=== PATIENT | male | born 1960 | race Caucasian/White ===

== ENCOUNTER 2019-05-17 07:08 | Outpatient (CLI) | payer OTHER, SELFPAY ==
[2019-05-17 07:53] LABS: Blood Urea Nitrogen 9 mg/dL (9-20); Calcium 9.4 mg/dL (8.4-10.2); Carbon Dioxide 27 mmol/L (22-30); Chloride 101 mmol/L (98-107); Estimated Glomerular Filt Rate > 60; Glucose 102 mg/dL (75-110); Potassium 4.1 mmol/L (3.4-5.0); Sodium 139 mmol/L (137-145)
== END 2019-05-17 07:09 | disposition home or self-care (01) ==
PROVIDERS: PCP Family Medicine; Visit Provider Physician Assistant
DX: I10 Essential (primary) hypertension (principal); R31.9 Hematuria, unspecified
CPT/HCPCS: 36415; 80048; 87077; 87086; 87088

== ENCOUNTER 2019-06-13 09:53 | Emergency (ER) | payer OTHER, SELFPAY ==
[2019-06-13 10:01] VITALS: BP 182/84; PULSE 79; RESP 20; TEMP 37.4; O2SAT 99
--- NOTE | 2019-06-13 10:18 | ED.SKABFB ---
HPI - Skin/Abscess/Foreign Bdy General Chief complaint: Skin/Abscess/Foreign Body Stated complaint: rash Time Seen by Provider: 06/13/19 10:00 Source: patient and RN notes reviewed History of Present Illness HPI narrative: Patient is a 59-year-old male that presents the urgent care with complaints of a rash to the right forehead and upper cheek. Patient states it started approximately 1 week ago and he has had impetigo in the past and treated it with [id number] cream as directed from prior instance. Patient denies any fever, nausea, vomiting. Denies any pain to the rash. Denies any spreading of the rash. 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 No other acute complaints. No acute distress noted. Patient read the plan of care. Related Data Home Medications Medication Instructions Recorded Confirmed citalopram 20 mg tablet 20 mg PO DAILY 04/22/19 06/13/19 doxazosin 2 mg tablet 2 mg PO DAILY 04/22/19 06/13/19 losartan 100 mg tablet 100 mg PO DAILY 04/22/19 06/13/19 metoprolol succinate 100 mg 100 mg PO DAILY 04/22/19 06/13/19 tablet,extended release 24 hr tadalafil 10 mg tablet 10 mg PO DAILY 04/22/19 06/13/19 trazodone 50 mg tablet 50 mg PO DAILY tablet 04/22/19 06/13/19 Allergies Allergy/AdvReac Type Severity Reaction Status Date / Time No Known Allergies Allergy Unverified 05/22/18 15:05 Review of Systems Review of Systems: Narrative: CONSTITUTIONAL: Denies fever, chills, or sweats. EYES: Denies visual changes, redness, or discharge. ENT: Denies rhinorrhea, congestion, sore throat, or otalgia. CARDIOVASCULAR: Denies chest pain, palpitations, or edema. RESPIRATORY: Denies cough or dyspnea. GASTROINTESTINAL: Denies abdominal pain, nausea, vomiting, or diarrhea. GENITOURINARY: Denies dysuria or hematuria. SKIN: Reports of a rash to the right forehead and upper cheek MUSCULOSKELETAL: Denies back pain, joint pain, or myalgia. NEUROLOGIC: Denies headache, numbness, or weakness. All other systems reviewed are negative, except as documented in HPI. PMFSH Family History Family History (Updated 01/16/19 @ 07:34 by DOCTOR UNKNOWN) Father Malignant neoplasm of prostate Other Family history of malignant neoplasm Social History Social History Smoking status: Former smoker Alcohol intake: current Comments At the time of my signature, I reviewed and agree with the nursing past medical, surgical, social, and family history. There is no relevant family history pertinent to the patient complaint. Exam Narrative: Exam Narrative: GENERAL: This is a well-nourished, well-developed patient, in no apparent distress. HEAD: normocephalic, atraumatic. EYES: PERRL. Sclera clear/white. Vision is grossly intact. EARS: External ears normal, auditory canals clear and without drainage, TMs normal without perforation. Hearing grossly intact. NOSE: External nose normal with no obvious nasal discharge, nares without redness, no rhinorrhea. THROAT: Mucous membranes moist, posterior pharynx clear. NECK: Neck supple, non-tender without lymphadenopathy, masses or thyromegaly. CARDIOVASCULAR: Regular rate and rhythm without murmurs, gallops, or rubs. RESPIRATORY: Clear to auscultation. Breath sounds equal bilaterally. No wheezes, rales, or rhonchi. SKIN: Healing dry patchy areas of resolved impetigo noted to the right side of the forehead and right upper cheek. Warm, intact with no suspicious lesions or rash, good texture and turgor. NEURO: awake, alert, and oriented to person, place and time. There were no obvious focal neurologic abnormalities. EXTREMITIES: No clubbing, cyanosis, or edema. Course Vital Signs Vital signs: Vital Signs Temperature 99.4 F 06/13/19 10:01 Pulse Rate 79 06/13/19 10:01 Respiratory Rate 20 06/13/19 10:01 Blood Pressure 182/84 H 06/13/19 10:01 Pulse Oximetry 99 06/12
== END 2019-06-13 10:26 | disposition home or self-care (01) ==
PROVIDERS: Emergency Provider Nurse Practitioner Family; PCP Family Medicine
DX: L01.00 Impetigo, unspecified (principal); I10 Essential (primary) hypertension; Z87.891 Personal history of nicotine dependence; F41.9 Anxiety disorder, unspecified; Z85.46 Personal history of malignant neoplasm of prostate
CPT/HCPCS: 99213; G0463

== ENCOUNTER 2019-09-02 08:14 | Emergency (ER) | payer OTHER, SELFPAY ==
[2019-09-02] VITALS (19 sets, daily range): BP systolic 127–197; BP diastolic 89–116; PULSE 103–111; RESP 10–27; TEMP 36.8; O2SAT 96–99
--- NOTE | ~2019-09-02 | XR_ITS ---
EXAMINATION: XR ankle LT min 3V DATE: 09/02/2019 09:12 INDICATION: Left ankle swelling. TECHNIQUE: 4 views of left ankle were obtained. COMPARISON: Left ankle radiographs 05/16/2018 FINDINGS: Bone alignment is normal. No acute fracture. There is chronic ossification distal to medial and lateral malleoli from old injuries. Joint spaces are normal. There are enthesophytes at the post erior and plantar aspects of calcaneal tuberosity. Ankle soft tissue swelling is noted. IMPRESSION: 1. No acute fracture. Reviewed, dictated and finalized at location A. IMPRESSION: 1. No acute fracture.
--- NOTE | ~2019-09-02 | XR_ITS ---
EXAMINATION: XR foot RT min 3V DATE: 09/02/2019 09:13 INDICATION: Right foot injury involving the first digit. TECHNIQUE: 4 views of right foot were obtained. COMPARISON: None. FINDINGS: Bone alignment is normal. There is an old healed fracture of fifth proximal phalanx. There is an impacted fracture of neck of fourth proximal phalanx. There is an old healed fracture of neck o f third proximal phalanx. There is mild osteoarthritis of talonavicular joint. There are enthesophyte s at the posterior and plantar aspects of calcaneal tuberosity. IMPRESSION: 1. Fracture deformity of neck of fourth proximal phalanx, which may be chronic. Reviewed, dictated and finalized at location A.
--- NOTE | ~2019-09-02 | CT_ITS ---
EXAMINATION: CT brain wo con DATE: 09/02/2019 08:59 INDICATION: Syncopal episode last night. Patient fell and struck head. TECHNIQUE: Computed tomography (CT) of the head was performed without intravenous contrast. The mA wa s adjusted according to patient size. Iterative reconstruction technique was employed. Exam dose: 75 6.67 mGy-cm total exam DLP. COMPARISON: 07/22/2018 CT brain FINDINGS: Frontal cephalohematoma is noted. No skull fracture is evident. There is a subtle linear hyperdensity in the expected area of a contrecoup injury in the posterior le ft parietal area (series 2 images 52-57. This might be a vessel, but a small subdural hematoma is not excluded. Continued observation and short-term follow up CT head imaging is recommended. No cerebral hematoma is noted. No midline shift or mass effect. There is central and cortical cerebral and cerebellar atrophy. No intracranial mass lesion is detecte d. IMPRESSION: Frontal cephalohematoma; no skull fracture detected Short-term follow-up CT imaging within 24 hours is recommended to exclude any subtle contrecoup subdu ral hematoma Reviewed, dictated and finalized at Location A. Reviewed, dictated and finalized at location A. IMPRESSION: Frontal cephalohematoma; no skull fracture detected Short-term follow-up CT imaging within 24 hours is recommended to exclude any s ubtle contrecoup subdural hematoma
--- NOTE | 2019-09-02 08:32 | ECG_ITS ---
Measurements Intervals [place] Rate: 109 P: -3 AK: 170 QRS: 6 QRSD: 100 T: 30 QT: 339 QTc: 458 Interpretive Statements SINUS TACHYCARDIA INCOMPLETE RIGHT BUNDLE BRANCH BLOCK BASELINE WANDER- I, II ABNORMAL ECG Electronically Signed On 09-02-2019 8:57:50 CDT by Kevon Carlisle D.O.
--- NOTE | 2019-09-02 09:04 | ED.GENADULT ---
HPI - General Adult General Chief complaint: Syncope Stated complaint: SYNCOPE Time Seen by Provider: 09/02/19 08:28 History of Present Illness HPI narrative: Patient is a 59-year-old male who presents the ER after a fall resulting in head trauma and pain to the toes. Patient reports over the last year he has had intermittent episodes where he will become profoundly weak and dropped to the ground. He does not lose consciousness but cannot control his movements. He is keenly aware that he is falling and hitting the ground. 1 year ago he suffered multiple injuries and was transferred to [facility] where he was worked up for this without finding a known cause. Patient reports he has had a couple episodes over the last 2 weeks. 1 week ago he injured his left ankle which is swollen but he is able to bear weight and is without any numbness or tingling. Today when he fell he injured the toes of his right foot which are now bruised but nontender to touch. He also struck his head where he has a bruise to the left forehead with overlying abrasion and also has a superficial laceration over the occiput. Denies any change in vision or hearing or confusion at this time. He does not take a blood thinner. Related Data Home Medications Medication Instructions Recorded Confirmed citalopram 20 mg tablet 20 mg PO DAILY 04/22/19 06/13/19 doxazosin 2 mg tablet 2 mg PO DAILY 04/22/19 06/13/19 losartan 100 mg tablet 100 mg PO DAILY 04/22/19 06/13/19 metoprolol succinate 100 mg 100 mg PO DAILY 04/22/19 06/13/19 tablet,extended release 24 hr tadalafil 10 mg tablet 10 mg PO DAILY 04/22/19 06/13/19 trazodone 50 mg tablet 50 mg PO DAILY tablet 04/22/19 06/13/19 Allergies Allergy/AdvReac Type Severity Reaction Status Date / Time No Known Allergies Allergy Verified 09/02/19 08:23 Review of Systems Review of Systems: All systems reviewed & are unremarkable except as noted in HPI and below Constitutional: Constitutional: Denies chills, Denies fatigue, Denies fever(s) and Reports weakness ENT: Denies nasal congestion and Denies sore throat Cardiovascular: Cardiovascular: Denies chest pain and Denies rapid heart rate Respiratory: Respiratory: Denies cough and Denies dyspnea Gastrointestinal: Gastrointestinal: Denies abdominal pain, Denies nausea and Denies vomiting Integumentary/Breasts: Comments: Toe contusion right side and laceration to scalp. Neurologic: Denies confusion, Denies syncope, Denies numbness and Reports weakness PMFSH Family History Family History (Updated 01/16/19 @ 07:34 by DOCTOR UNKNOWN) Father Malignant neoplasm of prostate Other Family history of malignant neoplasm Social History Social History Smoking status: Former smoker Alcohol intake: current Gender identity (if verbalized by the patient): Male Exam Narrative: Exam Narrative: GENERAL: Well-appearing, well-nourished, and in no acute distress. HEAD: Normocephalic, Frontal bruising of forehead, flap laceration over occiput. EYES: PERRL and EOMI. ENT: Mucous membranes moist. CHEST: Clear to auscultation. No respiratory distress. HEART: Tachycardic and regular. Normal peripheral pulses. ABDOMEN: Soft, nontender, nondistended. EXTREMITIES: Normal range of motion. No edema. Contusions to the toes on the right side with tenderness at toe #4. SKIN: Warm, dry, no rash. NEURO: Alert and oriented x3. PSYCH: Normal mood and affect. Course Course Emergency Course: Dr. Ovalles at [facility] recommends transfer to the ER at [facility]. Dr. Ferrell in the ER has accepted transfer. Pt placed in a c-collar. Post-op shoe for the right 4th toe fx. Vital Signs Vital signs: Vital Signs Pulse Rate 110 H 09/02/19 08:18 Respiratory Rate 18 09/02/19 08:18 Blood Pressure 185/96 H 09/02/19 08:18 Pulse Oximetry 97 09/02/19 08:18 Temperature 98.3 F 09/02/19 08:24 Pulse Rate 111 H 09/02/19 10:00 Respiratory Rate 27 H 09/02/19 10:00 Blood Press
[2019-09-02 09:06] LABS: Basophils Percent Auto 0.4 % (0.2-1.2); Eosinophils Absolute Auto 0.1 K/mm3 (0-0.3); Hematocrit 38.5 % (42.0-52.0); Hemoglobin 13.3 g/dL (14.0-18.0); Immature Granulocyte Absolute 0.02 K/mm3 (0.00-0.031); Immature Granulocyte Percent A 0.3 % (0-0.5); Lymphocytes Absolute Auto 0.51 K/mm3 (0.9-3.2); Lymphocytes Percent Auto 7.6 % (18.3-44.2); Mean Corpuscular HGB Conc 34.5 g/dl (32-36); Mean Corpuscular Hemoglobin 33.9 pg (26-34); Mean Corpuscular Volume 98.2 fl (80-100); Mean Platelet Volume 9.3 fl (7.4-10.4); Monocytes Absolute Auto 0.6 K/mm3 (0.1-0.6); Monocytes Percent Auto 9.1 % (2.6-8.5); Neutrophils Absolute Auto 5.5 K/mm3 (1.3-6.7); Neutrophils Percent Auto 81.6 % (45.5-73.1); Platelet Count Result 129 k/mm3 (150-375); Red Blood Count 3.92 M/mm3 (4.6-6.20); Red Cell Distribution Width 11.8 % (11.5-14.5); White Blood Count 6.7 K/mm3 (4.5-10.0)
[2019-09-02 09:22] LABS: Blood Urea Nitrogen 6 mg/dL (9-20); Calcium 9.4 mg/dL (8.4-10.2); Carbon Dioxide 23 mmol/L (22-30); Chloride 100 mmol/L (98-107); Estimated CRCL calculation 90 ml/min; Estimated Glomerular Filt Rate > 60; Glucose 103 mg/dL (75-110); Potassium 3.9 mmol/L (3.4-5.0); Sodium 135 mmol/L (137-145)
[2019-09-02] MEDS: ONDANSETRON INJ 4 MG/2 ML VIAL IV PUSH (10:30)
--- NOTE | 2019-09-02 10:45 | PC.NURSE ---
[facility] declined transfer to [facility] accepted transfer to [facility] 11:30 Trip # [id number]
== END 2019-09-02 11:39 | disposition short-term general hospital (02) ==
PROVIDERS: Emergency Provider Emergency Medicine; PCP Family Medicine
DX: S06.5X0A Traumatic subdural hemorrhage without loss of consciousness, initial encounter (principal); S01.01XA Laceration without foreign body of scalp, initial encounter; S92.511A Displaced fracture of proximal phalanx of right lesser toe(s), initial encounter for closed fracture; Z87.891 Personal history of nicotine dependence; R00.0 Tachycardia, unspecified; I45.10 Unspecified right bundle-branch block; W18.39XA Other fall on same level, initial encounter
CPT/HCPCS: 12002; 36415; 70450; 73610; 73630; 80048; 85025; 93005; 96374; 99285; J2405; L0140

== ENCOUNTER 2019-09-09 12:22 | Outpatient (CLI) | payer OTHER, SELFPAY ==
--- NOTE | ~2019-09-09 | CT_ITS ---
EXAMINATION: CT brain wo con DATE: 09/09/2019 12:44 INDICATION: Syncope and collapse TECHNIQUE: Computed tomography (CT) of the head was performed without intravenous contrast. Sagittal and coronal reconstructions were performed. The mA was adjusted according to patient size. Iterative reconstruction technique was employed. The dose-length product was 605.33 mGy-cm. COMPARISON: head CT dated 09/02/2019 and 05/16/2018 FINDINGS: No fracture. No acute intracranial hemorrhage, acute infarction or abnormal extra axial fluid collect ion. There is mild scattered white matter hypoattenuation consistent with chronic small vessel ischem ic disease. Symmetric prominence of the sulci and ventricles consistent with mild age-appropriate dif fuse cerebral volume loss. No mass/mass effect. 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 Paranasal sinuses are otherwise unremarkable. The orbits and mastoid air cells are normal. Lucent rig ht parietal skull lesion with central fat attenuation which is unchanged since 05/16/2018, likely shona gn. Skin charlie along the prior right posterior occipital skin laceration. IMPRESSION: 1. No fracture or acute intracranial process. 2. Age-related changes including mild diffuse volume loss and mild scattered white matter hypoattenua tion consistent with chronic small vessel ischemic disease. Reviewed, dictated and finalized at location A. IMPRESSION: 1. No fracture or acute intracranial process. 2. Age-related changes including mild diffuse volume loss and mild scattered wh ite matter hypoattenuation consistent with chronic small vessel ischemic diseas e.
== END 2019-09-09 12:23 | disposition home or self-care (01) ==
LOC: ANHIMG 12:27
PROVIDERS: PCP Family Medicine; Visit Provider Physician Assistant
DX: R55 Syncope and collapse (principal); S06.5X9A Traumatic subdural hemorrhage with loss of consciousness of unspecified duration, initial encounter
CPT/HCPCS: 70450

== ENCOUNTER 2019-10-03 16:07 | Outpatient (CLI) | payer OTHER, SELFPAY ==
--- NOTE | ~2019-10-03 | US_ITS ---
EXAMINATION: US carotid duplex BI DATE: 10/03/2019 16:39 INDICATION: Syncope and collapse TECHNIQUE: Grayscale, color Doppler, and pulsed Doppler images of the cervical carotid arteries were obtained. The degree of vessel stenosis is placed in one of the following categories: normal, <50%, 5 0-69%, >=70% but less than near-occlusion, near-occlusion, or total occlusion. Note that percent sten osis relative to normal distal artery lumen diameter is indirectly measured from velocity measurement s as described by Sergio, et al. Radiology 2003; 229:340-346. COMPARISON: None. FINDINGS: RIGHT: The right common carotid artery (CCA) peak systolic velocity (PSV) is 137 cm/s. The right internal ca rotid artery (ICA) PSV is 121 cm/s. The right ICA end-diastolic velocity (EDV) is 11 cm/s. The right ICA/CCA PSV ratio is 0.9. Grayscale and color Doppler images yield an estimate of <50% diameter reduc tion from plaque in the ICA. The external carotid artery (ECA) PSV is 93 cm/s. There is antegrade inocente w in the right vertebral artery. LEFT: The left CCA PSV is 114 cm/s. The left ICA PSV is 93 cm/s. The left ICA EDV is 18 cm/s. The left ICA/ CCA PSV ratio is 0.8. Grayscale and color Doppler images yield an estimate of <50% diameter reduction from plaque in the ICA. The ECA PSV is 109 cm/s. There is antegrade flow in the left vertebral arter y. IMPRESSION: 1. <50% stenosis in the right internal carotid artery. 2. <50% stenosis in the left internal carotid artery. 3. Tachycardia. Reviewed, dictated and finalized at location A.
== END 2019-10-03 16:08 | disposition home or self-care (01) ==
PROVIDERS: PCP Family Medicine; Visit Provider Physician Assistant
DX: I65.23 Occlusion and stenosis of bilateral carotid arteries (principal); R55 Syncope and collapse
CPT/HCPCS: 93880

== ENCOUNTER 2019-11-19 12:25 | Outpatient (CLI) | payer OTHER, SELFPAY ==
--- NOTE | ~2019-11-19 | XR_ITS ---
EXAMINATION: [id number]_CR EXAM DATE: 11/19/2019 13:01 INDICATION: Syncope, collapse. Left side chest pain. TECHNIQUE: Frontal projection of the upper left ribs, frontal projection of the lower left ribs, obli que projection of the left ribs, frontal chest x-ray(s) for interpretation. Comparison is made to bre or examination from 07/22/2017. FINDINGS: There are multiple old left rib fractures. No acute cortical break identified but reinjury to one of the old fracture sites would be difficult to confirm. Consider educating patient that even if there is a radiographically occult nondisplaced rib fracture, there is no specific treatment other than to refrain from activity that prevents healing. There is approximately 1 cm right lower lung zone density, could be chondral cartilage calcification but was not apparent on prior study. Recommend nonemergent follow-up chest CT to exclude new intrapar enchymal nodule, cancer. Patient has diffuse idiopathic skeletal hyperostosis (DISH). There is no pne umothorax suspected. IMPRESSION: 1. Right lower lung zone nodular density, indeterminate; follow-up nonemergent CT. 2. Multiple old left rib fractures. Reviewed, dictated and finalized at location B.
--- NOTE | ~2019-11-19 | XR_ITS ---
EXAMINATION: XR foot LT min 3V EXAM DATE: 11/19/2019 12:59 INDICATION: Initial encounter following injury, with pain of the left foot. TECHNIQUE: Left foot dorsoplantar, lateral and oblique projections obtained and reviewed. Comparison is made to prior examination from 06/05/2018. FINDINGS: There is fracture at the base of the left 2nd metatarsal bone identified on one of the pro jections, extending into the Lisfranc joint. There may be other acute closed posttraumatic fractures less which are not visualized. Consider orthopedic consult, CT scan. There is a healed left 1st prox imal phalangeal shaft fracture. IMPRESSION: Left 2nd metatarsal base fracture into Lisfranc joint. May well be other fractures and l igamentous injury. Consider orthopedic consult, CT scan. Reviewed, dictated and finalized at location B. IMPRESSION: Left 2nd metatarsal base fracture into Lisfranc joint. May well be other fractures and ligamentous injury. Consider orthopedic consult, CT scan.
--- NOTE | ~2019-11-19 | CT_ITS ---
EXAMINATION: CT brain wo con INDICATION: Head injury COMPARISON: 09/09/2019 TECHNIQUE: Standard unenhanced head CT. The dose-length product (DLP) was 756.67 mGy-cm. The mA was a djusted according to patient size. Iterative reconstruction technique was employed. FINDINGS: There is no acute intraparenchymal hemorrhage. No evidence of mass lesion. No evidence of a cute infarction. There is mild periventricular and subcortical hypodensity probably related to small vessel ischemic disease. There is mild prominence of the sulci and ventricles related to cerebral atr ophy. Intracranial calcified cerebral atherosclerosis is noted. There are no extra-axial collections. There is no mass effect or midline shift. The orbits are unremarkable. The visualized sinuses and m astoid air cells are well aerated. IMPRESSION: 1. No acute intracranial abnormality. 2. Age related findings. Reviewed, dictated and finalized at location A.
== END 2019-11-19 12:26 | disposition home or self-care (01) ==
PROVIDERS: PCP Family Medicine; Visit Provider Physician Assistant
DX: R40.20 Unspecified coma (principal); S09.90XA Unspecified injury of head, initial encounter; S29.9XXA Unspecified injury of thorax, initial encounter; X58.XXXA Exposure to other specified factors, initial encounter; R91.8 Other nonspecific abnormal finding of lung field; S92.325A Nondisplaced fracture of second metatarsal bone, left foot, initial encounter for closed fracture
CPT/HCPCS: 70450; 71101; 73630

== ENCOUNTER 2019-12-25 08:54 | Emergency (ER) | payer OTHER, SELFPAY ==
[2019-12-25] VITALS (23 sets, daily range): BP systolic 132–164; BP diastolic 62–93; PULSE 78–106; RESP 12–20; TEMP 35.9–36.9; O2SAT 97–100
--- NOTE | ~2019-12-25 | CT_ITS ---
EXAMINATION: CT brain wo con DATE: 12/25/2019 09:49 INDICATION: Collapse. TECHNIQUE: Computed tomography (CT) of the head was performed without intravenous contrast. The dose- length product was 681.00 mGy-cm. The mA was adjusted according to patient size. Iterative reconstruc tion technique was employed. COMPARISON: CT dated 11/19/2019 FINDINGS: Generalized atrophy. There are scattered mild periventricular and subcortical white matter changes, most likely related to small vessel ischemic disease (microangiopathy). No acute intracrania l hemorrhage, infarction, mass or mass effect. Left frontal scalp swelling. No depressed skull fractu res. Small osteoma noted in the right ethmoid sinus. Minimal mucosal thickening. Mastoids are pneumat ized. Midline sagittal images demonstrate a normal corpus callosum and craniovertebral junction. IMPRESSION: 1. No acute intracranial abnormality. 2: Chronic age-related findings. Reviewed, dictated and finalized at location A.
--- NOTE | ~2019-12-25 | CT_ITS ---
EXAMINATION: CT cervical spine wo con DATE: 12/25/2019 09:49 INDICATION: Neck pain TECHNIQUE: Computed tomography (CT) of the cervical spine was performed without intravenous contrast. The dose-length product was 522 mGy-cm. Automated exposure control and iterative reconstruction tech nique were employed. COMPARISON: CT dated 07/22/2018 FINDINGS: Moderate cervical generative spondylosis with prominent bridging endplate osteophytes. No a cute fracture or traumatic malalignment. Accentuated cervical lordosis. Odontoid process within ana l limits. No significant paraspinal soft tissue abnormality. Vertebral body heights are maintained. N o evidence for perched facet. Craniovertebral junction is unremarkable. IMPRESSION: 1. No acute abnormality of the cervical spine. Reviewed, dictated and finalized at location A.
--- NOTE | 2019-12-25 09:27 | ECG_ITS ---
Measurements Intervals [place] Rate: 87 P: 10 ID: [id number] QRS: 24 QRSD: 102 T: 40 QT: 363 QTc: 439 Interpretive Statements SINUS RHYTHM INCOMPLETE RIGHT BUNDLE BRANCH BLOCK BASELINE ARTIFACT- I, II, AVR BORDERLINE ECG Electronically Signed On 12-25-2019 10:11:20 CDT by Kevon Carlisle D.O.
--- NOTE | 2019-12-25 09:30 | ED.GENADULT ---
HPI - General Adult General Chief complaint: Head Injury <JAMIL Light Last Filed: 12/25/19 12:26> Stated complaint: fall struck head on cabinets <JAMIL Light Last Filed: 12/25/19 12:26> Time Seen by Provider: 12/25/19 09:21 <JAMIL Light Last Filed: 12/25/19 12:26> Source: patient <JAMIL Light Last Filed: 12/25/19 12:26> Mode of arrival: ambulatory <JAMIL Light Last Filed: 12/25/19 12:26> Limitations: no limitations <JAMIL Light Last Filed: 12/25/19 12:26> History of Present Illness HPI narrative: Patient is a 59-year-old male who presents to emergency department for a fall that occurred yesterday patient notes that he is currently being evaluated by specialist at [facility] with planned visit Monday for his recurrent syncopal episodes patient is sustained multiple head injuries and presents today after reopening a laceration over the left brow on the forehead that was recently sewed up and just had the sutures removed patient notes mild neck pain and posterior head pain and pain at the laceration site since the fall patient notes he did have 6 beers last night and does drink 6 beers per day patient notes he has been compliant with his psych and blood pressure medications patient denies other injury or complaint and presents per private vehicle in no distress and does not appear patient has not taken anything for his symptoms <JAMIL Light Last Filed: 12/25/19 12:26> Related Data Home medications: Home Medications Medication Instructions Recorded Confirmed naproxen sodium 220 mg capsule 220 mg PO Q12H 09/09/19 12/04/19 <JAMIL Light Last Filed: 12/25/19 12:26> Allergies/adverse reactions: Allergies Allergy/AdvReac Type Severity Reaction Status Date / Time No Known Allergies Allergy Verified 12/16/19 16:05 <JAMIL Light Last Filed: 12/25/19 12:26> Review of Systems Review of Systems: All systems reviewed & are unremarkable except as noted in HPI and below <JAMIL Light Last Filed: 12/25/19 12:26> [facility] Past Medical History Medical History: Medical History Alcohol abuse Fracture of metatarsal of left foot, closed Frequent falls Laceration of occipital region of scalp Syncope and collapse <Osito Vicente PA-C - Last Filed: 12/25/19 12:26> Surgical History Surgical History: Surgical History History of appendectomy <Osito Vicente PA-C - Last Filed: 12/25/19 12:26> Social History Social History: Social History Social History: Smoking status: Former smoker Tobacco type: cigarettes Second hand tobacco smoke exposure: No Alcohol intake: current Drinks per week: 30 Substance use: never Substance use type: does not use Gender identity (if verbalized by the patient): Male <Osito Vicente PA-C - Last Filed: 12/25/19 12:26> Exam Narrative: Exam Narrative: GENERAL: Well-appearing, well-nourished, and in no acute distress. HEAD: Normocephalic, 3 cm laceration of the left forehead over the brow EYES: PERRLA and EOMI. ENT: Nares clear, no rhinorrhea or epistaxis. Mucous membranes moist. Oropharynx without tonsillar hypertrophy exudate or other lesions. NECK: Supple. No adenopathy or masses. CHEST: Clear to auscultation. No respiratory distress. No wheezes rales or rhonchi HEART: Regular rate and rhythm. No murmur heard. Normal peripheral pulses. ABDOMEN: Soft, nontender, nondistended, normal active bowel sounds. EXTREMITIES: Normal range of motion. No edema. Paraspinal cervical tenderness no thoracic or lumbar tenderness no bruises or abnormalities of the thorax. Patient without any tenderness of the extremit
[2019-12-25 10:09] LABS: Basophils Absolute Auto 0.1 K/mm3 (0.0-0.1); Basophils Percent Auto 0.7 % (0.2-1.2); Eosinophils Percent Auto 0.5 % (0-4.4); Hematocrit 38.8 % (42.0-52.0); Hemoglobin 13.5 g/dL (14.0-18.0); Immature Granulocyte Absolute 0.07 K/mm3 (0.00-0.031); Immature Granulocyte Percent A 0.8 % (0-0.5); Lymphocytes Absolute Auto 0.69 K/mm3 (0.9-3.2); Lymphocytes Percent Auto 7.8 % (18.3-44.2); Mean Corpuscular HGB Conc 34.8 g/dl (32-36); Mean Corpuscular Hemoglobin 35.2 pg (26-34); Mean Corpuscular Volume 101.3 fl (80-100); Monocytes Absolute Auto 0.9 K/mm3 (0.1-0.6); Monocytes Percent Auto 9.8 % (2.6-8.5); Neutrophils Absolute Auto 7.1 K/mm3 (1.3-6.7); Neutrophils Percent Auto 80.4 % (45.5-73.1); Platelet Count Result 220 k/mm3 (150-375); Red Blood Count 3.83 M/mm3 (4.6-6.20); Red Cell Distribution Width 12.2 % (11.5-14.5); White Blood Count 8.8 K/mm3 (4.5-10.0)
[2019-12-25 10:19] LABS: Prothrombin Time 12.7 Seconds (11.1-14.7)
[2019-12-25 10:20] LABS: Alanine Aminotransferase 40 U/L (4-50); Alkaline Phosphatase 97 U/L (38-126); Anion Gap 6 mmol/L (8-16); Aspartate Amino Transferase 41 U/L (17-59); Bilirubin,Total 0.8 mg/dL (0.2-1.3); Blood Urea Nitrogen 9 mg/dL (9-20); Calcium 9.6 mg/dL (8.4-10.2); Carbon Dioxide 26 mmol/L (22-30); Chloride 98 mmol/L (98-107); Estimated CRCL calculation 114 ml/min; Estimated Glomerular Filt Rate > 60; Ethanol < 10 mg/dL (<10); Glucose 133 mg/dL (75-110); Partial Thromboplastin Time 28.3 SECONDS (22.3-36.8); Potassium 4.4 mmol/L (3.4-5.0); Sodium 130 mmol/L (137-145)
== END 2019-12-25 12:34 | disposition home or self-care (01) ==
PROVIDERS: Emergency Medicine Emergency Medical Services; Emergency Provider Emergency Medicine; PCP Family Medicine
DX: S01.81XA Laceration without foreign body of other part of head, initial encounter (principal); Z87.891 Personal history of nicotine dependence; W19.XXXA Unspecified fall, initial encounter
CPT/HCPCS: 12013; 36415; 70450; 72125; 80053; 80307; 85025; 85610; 85730; 93005; 99284

== ENCOUNTER 2020-01-07 16:25 | Outpatient (CLI) | payer OTHER, SELFPAY ==
[2020-01-07 17:36] LABS: Basophils Percent Auto 0.6 % (0.2-1.2); Hematocrit 36.5 % (42.0-52.0); Immature Granulocyte Absolute 0.03 K/mm3 (0.00-0.031); Immature Granulocyte Percent A 0.4 % (0-0.5); Lymphocytes Absolute Auto 0.68 K/mm3 (0.9-3.2); Lymphocytes Percent Auto 10.1 % (18.3-44.2); Mean Corpuscular HGB Conc 35.6 g/dl (32-36); Mean Corpuscular Hemoglobin 34.5 pg (26-34); Mean Corpuscular Volume 96.8 fl (80-100); Mean Platelet Volume 9.5 fl (7.4-10.4); Monocytes Absolute Auto 0.6 K/mm3 (0.1-0.6); Monocytes Percent Auto 8.2 % (2.6-8.5); Neutrophils Absolute Auto 5.4 K/mm3 (1.3-6.7); Neutrophils Percent Auto 80.7 % (45.5-73.1); Platelet Count Result 159 k/mm3 (150-375); Red Blood Count 3.77 M/mm3 (4.6-6.20); Red Cell Distribution Width 11.9 % (11.5-14.5); White Blood Count 6.7 K/mm3 (4.5-10.0)
[2020-01-07 17:47] LABS: Alanine Aminotransferase 61 U/L (4-50); Albumin Level 4.2 g/dL (3.5-5.1); Alkaline Phosphatase 102 U/L (38-126); Amylase 78 U/L (30-110); Anion Gap 11 mmol/L (8-16); Aspartate Amino Transferase 106 U/L (17-59); Bilirubin,Total 1.6 mg/dL (0.2-1.3); Blood Urea Nitrogen 7 mg/dL (9-20); Calcium 9.6 mg/dL (8.4-10.2); Carbon Dioxide 22 mmol/L (22-30); Chloride 94 mmol/L (98-107); Estimated Glomerular Filt Rate > 60; Glucose 146 mg/dL (75-110); Lipase 131 U/L (23-300); Potassium 3.6 mmol/L (3.4-5.0); Sodium 127 mmol/L (137-145)
[2020-01-07 17:48] LABS: Ethanol < 10 mg/dL (<10)
[2020-01-07 18:53] LABS: Folic Acid 13.2 ng/mL (2.76->20)
[2020-01-11 06:35] LABS: GGT 236 U/L (3-70)
== END 2020-01-07 16:26 | disposition home or self-care (01) ==
LOC: ANHLAB 16:26
PROVIDERS: PCP Family Medicine; Visit Provider Physician Assistant
DX: R10.9 Unspecified abdominal pain (principal); R11.2 Nausea with vomiting, unspecified; R61 Generalized hyperhidrosis; Z72.89 Other problems related to lifestyle; W19.XXXA Unspecified fall, initial encounter
CPT/HCPCS: 36415; 80053; 80307; 82150; 82607; 82746; 82977; 83690; 85025

== ENCOUNTER 2020-01-07 18:09 | Observation (INO) | payer OTHER, SELFPAY ==
--- NOTE | ~2020-01-07 | XR_ITS ---
EXAMINATION: XR chest 2V DATE: 01/07/2020 18:54 INDICATION: Weakness, nausea and vomiting, history of hypertension TECHNIQUE: AP and lateral views of the chest are obtained. COMPARISON: 07/22/2018 FINDINGS: There are mild chronic airspace opacities of the visualized lung bases, consistent with ate lectasis. There is no pleural effusion or pneumothorax. The cardiomediastinal silhouette is normal. T here are bridging osteophytes at multiple levels in the spine, consistent with diffuse idiopathic ske letal hyperostosis (DISH). Multiple healed left-sided rib fractures are noted. IMPRESSION: 1. No acute cardiopulmonary abnormality. Reviewed, dictated and finalized at location A.
--- NOTE | ~2020-01-07 | US_ITS ---
EXAMINATION: US right upper quadrant EXAM DATE: 01/08/2020 10:03 INDICATION: Nausea and vomiting. TECHNIQUE: Multiple grayscale and Doppler images of the abdomen right upper quadrant were obtained (b y a technologist who performed the scan) and subsequently reviewed. There is no prior study for jean rand. FINDINGS: The pancreatic head and body are normal in appearance. The pancreatic tail is not visualized. Mildl y echogenic liver parenchyma, hepatic steatosis. There are no focal liver lesions identified. Ther e is no evidence of intrahepatic biliary duct dilation. Portal venous flow was seen in the hepatoped al, normal direction and has normal Doppler waveform. No right-sided hydronephrosis. Common bile duct measures 3 mm, which is normal. The gallbladder wall is normal in thickness, with ex pected amount of distention. No sonographic evidence of pericholecystic fluid. There is no cholelit hiases. Technologist performing exam reports patient did not demonstrate sonographic Orellana's sign. Please note that this sign is less reliable in patients who have received pain medication. IMPRESSION: 1. Hepatic steatosis. Reviewed, dictated and finalized at location B. IMPRESSION: 1. Hepatic steatosis.
[2020-01-07 18:17] VITALS: BP 151/99; PULSE 101; RESP 17; TEMP 36.8; O2SAT 97
--- NOTE | 2020-01-07 18:20 | ECG_ITS ---
Measurements Intervals [place] Rate: 97 P: 20 RI: 180 QRS: 27 QRSD: 99 T: 43 QT: 358 QTc: 455 Interpretive Statements SINUS RHYTHM POSSIBLE LEFT ATRIAL ENLARGEMENT INCOMPLETE RIGHT BUNDLE BRANCH BLOCK BASELINE ARTIFACT- III BORDERLINE ECG Electronically Signed On 01-07-2020 19:37:07 CDT by Kevon Carlisle D.O.
[2020-01-07 19:03] VITALS: BP 190/100; PULSE 93; RESP 11; O2SAT 99
--- NOTE | 2020-01-07 19:08 | PC.NURSE ---
PT REPORT TO MITCHELL MARROQUIN AT THIS TIME, SHE HAS ASSUMED PT CARE.
[2020-01-07] MEDS: SODIUM CHLORIDE 0.9% IV 1,000 ML 999 ML IV CONT (19:19)
[2020-01-07] MEDS: PROMETHAZINE HCL 25 MG/ML AMPUL 12.5 MG IV PUSH (19:19)
[2020-01-07 19:20] VITALS: BP 192/92; PULSE 89
[2020-01-07 19:23] VITALS: BP 189/94; PULSE 99
[2020-01-07 19:33] LABS: Add Urine Microscopic? YES; Appearance Urine Clear (Clear); Bacteria Urine Trace /hpf; Bilirubin Urine Negative (Negative); Blood Urine 1+ (Negative); Color Urine Yellow (Yellow); Glucose Urine UA 1+ mg/dL (Negative); Ketones Urine 1+ mg/dL (Negative); Leukocyte Esterase Ur Negative LEU/UL (Negative); Mucus Urine Few /lpf; Nitrate Urine Negative (Negative); Protein Urine 1+ mg/dL (Negative); Specific Grav Ur 1.016 (1.001-1.035); Urobilinogen Urine Negative mg/dL (<2.0); WBC Urine 0-3 /hpf
--- NOTE | 2020-01-07 19:43 | ED.WEAKNESS ---
HPI - Weakness General Chief complaint: Weakness Stated complaint: weakness Time Seen by Provider: 01/07/20 18:55 History of Present Illness HPI Narrative: Patient is a 59-year-old male who presents the ER with weakness and vomiting. Patient had a doctor's appointment today and he went for his pre-appointment lab draw. He vomited twice in a trash can while in the lab and vomit began while he is in the physician's office. He has felt profoundly weak throughout the week. Said no fevers or chills or sweats. Has not had nausea vomiting until today. No diarrhea or overt abdominal pain. No urinary symptoms. Patient has long history of feeling weak after he has episodes where he just falls to the ground. States he seen a neurologist and has not been given any diagnosis. Related Data Home Medications Medication Instructions Recorded Confirmed naproxen sodium 220 mg capsule 220 mg PO Q12H 09/09/19 01/08/20 Culturelle 1 cap PO DAILY 01/08/20 01/08/20 valerian root extract 300 mg PO HS PRN 01/08/20 01/08/20 Allergies Allergy/AdvReac Type Severity Reaction Status Date / Time No Known Allergies Allergy Verified 01/07/20 15:19 Review of Systems Review of Systems: All systems reviewed & are unremarkable except as noted in HPI and below Constitutional: Constitutional: Denies chills, Denies fever(s) and Reports weakness ENT: Denies nasal congestion and Denies sore throat Cardiovascular: Cardiovascular: Denies chest pain and Denies radiating jaw, neck or arm pain Respiratory: Respiratory: Denies cough, Denies dyspnea and Denies wheezing Gastrointestinal: Gastrointestinal: Denies abdominal pain, Denies diarrhea, Reports nausea and Reports vomiting Neurologic: Denies dizziness, Denies syncope, Denies focal weakness and Denies numbness [facility] Past Medical History Medical History (Updated 01/18/20 @ 00:09 by Chase Koenig MD) Alcohol abuse Fracture of metatarsal of left foot, closed Frequent falls Laceration of occipital region of scalp Syncope and collapse Surgical History Surgical History History of appendectomy Family History Family History (Updated 01/08/20 @ 00:18 by Chase Ellsworth RN) Father Malignant neoplasm of prostate Mother COPD (chronic obstructive pulmonary disease) Other Family history of malignant neoplasm Social History Social History Social History: Smoking packs per day: 1 Smoking cigarettes per day: 20.0 Years smoked: 20 Smoking pack-years: 20.00 Smoking status: Former smoker Tobacco type: cigarettes Second hand tobacco smoke exposure: No Alcohol intake: current Drinks per week: 42 Substance use: never Substance use type: does not use Gender identity (if verbalized by the patient): Male Spiritual care concerns: No Exam Narrative: Exam Narrative: GENERAL: Well-appearing, well-nourished, and in no acute distress. HEAD: Normocephalic, atraumatic. Old scars to the forehead/scalp from previous falls. ENT: Mucous membranes moist. CHEST: Clear to auscultation. No respiratory distress. HEART: Regular rate and rhythm. Normal peripheral pulses. ABDOMEN: Soft, nontender, nondistended. EXTREMITIES: Normal range of motion. Left lower extremity in a postop boot for previous fractures. SKIN: Warm, dry, no rash. NEURO: Alert and oriented x3. Course Course Emergency Course: Some sodium trending down. May be related to instability and nausea vomiting. I also brought up with the patient that symptoms symptoms could be related to alcohol withdrawal that he could be having seizures that caused him to fall and strike his head and injure himself. Patient is unsure if the 2 are related but also seems somewhat dismissive of the conversation. Vital Signs Vital signs: Vital Signs Temperature 98.2 F 01/07/20 18:17 Pulse Rate 101 H
[2020-01-07 22:44] VITALS: BP 164/87; PULSE 92; RESP 18; O2SAT 97
[2020-01-07 23:00] VITALS: BP 164/74; PULSE 96; RESP 18; TEMP 36.4; O2SAT 97; BMI 32.5
[2020-01-08] MEDS: SODIUM CHLORIDE 0.9% IV 1,000 ML 125 ML IV CONT ×2 (00:34→10:09)
[2020-01-08 06:00] VITALS: BP 176/82; PULSE 81; RESP 20; TEMP 37.3; O2SAT 97
[2020-01-08 08:19] LABS: Hematocrit 34.7 % (42.0-52.0); Immature Platelet Fraction Pct 3.2 % (0.9-11.2); Mean Corpuscular HGB Conc 34.6 g/dl (32-36); Mean Corpuscular Hemoglobin 34.9 pg (26-34); Mean Corpuscular Volume 100.9 fl (80-100); Mean Platelet Volume 9.7 fl (7.4-10.4); Platelet Count Result 155 k/mm3 (150-375); Red Blood Count 3.44 M/mm3 (4.6-6.20); Red Cell Distribution Width 12.2 % (11.5-14.5); White Blood Count 5.8 K/mm3 (4.5-10.0)
[2020-01-08 08:28] LABS: Alanine Aminotransferase 51 U/L (4-50); Albumin Level 3.7 g/dL (3.5-5.1); Alkaline Phosphatase 79 U/L (38-126); Anion Gap 7 mmol/L (8-16); Aspartate Amino Transferase 84 U/L (17-59); Blood Urea Nitrogen 6 mg/dL (9-20); Carbon Dioxide 28 mmol/L (22-30); Chloride 98 mmol/L (98-107); Estimated CRCL calculation 132 ml/min; Estimated Glomerular Filt Rate > 60; Glucose 101 mg/dL (75-110); Magnesium 1.6 mg/dL (1.6-2.3); Potassium 3.4 mmol/L (3.4-5.0); Sodium 133 mmol/L (137-145)
[2020-01-08 09:13] LABS: Hepatitis B Surface Antigen Negative (Negative)
[2020-01-08 09:19] LABS: HAV RESULT Negative (Negative); Hepatitis B Core IgM Result Negative (Negative)
[2020-01-08 09:30] LABS: Hepatitis C Virus Antibody Negative (Negative)
[2020-01-08] MEDS: CYANOCOBALAMIN INJ 1,000 MCG/ML VIAL 1000 MCG IM (10:09)
[2020-01-08] MEDS: busPIRone HCL 5 MG TABLET PO ×3 (10:10→16:35)
[2020-01-08 10:13] VITALS: PULSE 80
[2020-01-08] MEDS: carvediloL 12.5 MG TABLET PO ×2 (10:13→20:50)
[2020-01-08 14:00] VITALS: BP 176/97; PULSE 82; RESP 20; TEMP 36.9; O2SAT 99
--- NOTE | 2020-01-08 15:00 | PM.IMHP ---
H&P: HPI History of Present Illness Date/Time: 01/08/20 15:00 Chief complaint: hyponatremia, nausea and vomiting Narrative: Cynthia Maldonado is a 59 year old male initially patient was seen in his primary care doctor's office yesterday on 01/06 he was sent to the lab where had couple of episode of vomiting and that persisted he came to emergency department for further evaluation did continue to have vomiting and abdominal pain but no diarrhea, he complains of profound weakness difficulty with ambulation, patient does admit to drink beer 6-7 cans beer daily and now that his home and quarantine he has been drinking more, his blood alcohol level was less than normal, his labs showed patient has elevated liver enzymes and abdominal ultrasound showed fatty liver most likely secondary to obesity and alcohol abuse, his hepatitis panel is negative for any infection, patient vitamin B12 is low this can also contribute to his weakness, patient was given vitamin B12 1 mg IM, to further evaluate will do the TSH to check for his thyroid function, will have a PT OT evaluate the patient patient will benefit going into acute rehab before going home, patient states his symptoms have been persisting for quite sometime he seen by neurologist cardiology and 2 family physicians without any diagnosis Review of Systems Review of Systems: All systems reviewed & are unremarkable except as noted in HPI and below PMFSH Family History Family History (Updated 01/08/20 @ 00:18 by Chase Ellsworth RN) Father Malignant neoplasm of prostate Mother COPD (chronic obstructive pulmonary disease) Other Family history of malignant neoplasm Social History Social History Social History: Smoking packs per day: 1 Smoking cigarettes per day: 20.0 Years smoked: 20 Smoking pack-years: 20.00 Smoking status: Former smoker Tobacco type: cigarettes Second hand tobacco smoke exposure: No Alcohol intake: current Drinks per week: 42 Substance use: never Substance use type: does not use Gender identity (if verbalized by the patient): Male Spiritual care concerns: No Meds Home Medications and Allergies Home Medications Medication Instructions Recorded Confirmed Type naproxen sodium 220 mg capsule 220 mg PO Q12H 09/09/19 01/08/20 History carvedilol 12.5 mg tablet 12.5 mg PO Q12H #180 tablet 11/19/19 01/08/20 Rx citalopram 20 mg tablet 20 mg PO DAILY #90 tablet 12/03/19 01/08/20 Rx doxazosin 2 mg tablet 2 mg PO DAILY #90 tablet 12/03/19 01/08/20 Rx losartan 100 mg tablet 100 mg PO DAILY #90 tablet 12/03/19 01/08/20 Rx buspirone 5 mg tablet 5 mg PO TID #90 tablet 12/10/19 01/08/20 Rx trazodone 50 mg tablet 100 mg PO DAILY #60 tablet 12/23/19 01/08/20 Rx Lactobacillus rhamnosus GG 1 cap PO DAILY 01/08/20 01/08/20 History [Culturelle] valerian root extract 300 mg PO HS PRN 01/08/20 01/08/20 History Allergies Allergy/AdvReac Type Severity Reaction Status Date / Time No Known Allergies Allergy Verified 01/07/20 15:19 Vital Signs Vital Signs - 24 hr 01/07/20 18:17 01/07/20 19:03 01/07/20 19:20 Temperature 98.2 F Pulse Rate 101 H 93 89 Respiratory Rate 17 11 L Blood Pressure 151/99 H 190/100 H 192/92 H Pulse Oximetry 97 99 01/07/20 19:23 01/07/20 22:44 01/07/20 23:00 Temperature 97.6 F Pulse Rate 99 92 96 Respiratory Rate 18 18 Blood Pressure 189/94 H 164/87 H 164/74 H Pulse Oximetry 97 97 01/08/20 06:00 01/08/20 10:13 Temperature 99.2 F Pulse Rate 81 80 Respiratory Rate 20 Blood Pressure 176/82 H Pulse Oximetry 97 Exam Narrative: Exam Narrative: moderately obese Const: General: comfortable and no acute distress HENMT: General nose exam: Normal nares present Eyes: Sclera: sclerae normal Neck: Neck: supple Resp: Effort & Inspection: normal respiratory effort Auscultation: clear to auscultation bilaterally Cardio: R
[2020-01-08 20:50] VITALS: PULSE 80
[2020-01-08] MEDS: traZODone HCL 50 MG TABLET 100 MG PO (20:50)
[2020-01-08] MEDS: CITALOPRAM HYDROBROMIDE 20 MG TABLET PO (20:50)
[2020-01-08] MEDS: LOSARTAN POTASSIUM 100 MG TABLET PO (20:50)
[2020-01-08] MEDS: DOXAZOSIN MESYLATE 2 MG TABLET PO (20:50)
[2020-01-08 22:00] VITALS: BP 173/84; PULSE 87; RESP 18; TEMP 36.6; O2SAT 97
[2020-01-08] MEDS: ACETAMINOPHEN 325 MG TABLET 650 MG PO (23:11)
[2020-01-09 06:00] VITALS: BP 168/80; PULSE 75; RESP 16; TEMP 36.9; O2SAT 97
[2020-01-09 06:41] LABS: Hematocrit 33.8 % (42.0-52.0); Hemoglobin 11.9 g/dL (14.0-18.0); Immature Platelet Fraction Pct 3.9 % (0.9-11.2); Mean Corpuscular HGB Conc 35.2 g/dl (32-36); Mean Corpuscular Hemoglobin 35.2 pg (26-34); Mean Platelet Volume 9.9 fl (7.4-10.4); Platelet Count Result 131 k/mm3 (150-375); Red Blood Count 3.38 M/mm3 (4.6-6.20)
[2020-01-09 07:02] LABS: Alanine Aminotransferase 45 U/L (4-50); Albumin Level 3.5 g/dL (3.5-5.1); Alkaline Phosphatase 68 U/L (38-126); Anion Gap 6 mmol/L (8-16); Aspartate Amino Transferase 59 U/L (17-59); Bilirubin,Total 1.6 mg/dL (0.2-1.3); Blood Urea Nitrogen 9 mg/dL (9-20); Calcium 9.1 mg/dL (8.4-10.2); Carbon Dioxide 28 mmol/L (22-30); Chloride 101 mmol/L (98-107); Estimated CRCL calculation 132 ml/min; Estimated Glomerular Filt Rate > 60; Glucose 100 mg/dL (75-110); Potassium 3.2 mmol/L (3.4-5.0); Sodium 135 mmol/L (137-145)
[2020-01-09 07:29] LABS: Magnesium 1.8 mg/dL (1.6-2.3)
[2020-01-09 07:56] LABS: Thyroid Stimulating Hormone Reflex 0.552 uIU/mL (0.465-4.68)
[2020-01-09 08:36] VITALS: PULSE 76
[2020-01-09] MEDS: carvediloL 12.5 MG TABLET PO (08:36)
[2020-01-09] MEDS: busPIRone HCL 5 MG TABLET PO ×2 (08:36→12:27)
[2020-01-09] MEDS: SACCHAROMYCES BOULARDII 250 MG CAPSULE PO (08:37)
--- NOTE | 2020-01-09 09:54 | PM.DS ---
DS: Admitting Diagnosis Admitting Diagnosis Admitting Diagnosis: hyponatremia, nausea and vomiting DS: Discharge Diagnosis Discharge Diagnosis (1) Generalized weakness: Code(s): R53.1 - Weakness Status: Acute Assessment and Plan: Cynthia Maldonado is a 59 year old male initially patient was seen in his primary care doctor's office yesterday on 01/06 he was sent to the lab where had couple of episode of vomiting and that persisted he came to emergency department for further evaluation did continue to have vomiting and abdominal pain but no diarrhea, he complains of profound weakness difficulty with ambulation, patient does admit to drink beer 6-7 cans beer daily and now that his home and quarantine he has been drinking more, his blood alcohol level was less than normal, his labs showed patient has elevated liver enzymes and abdominal ultrasound showed fatty liver most likely secondary to obesity and alcohol abuse, his hepatitis panel is negative for any infection, patient vitamin B12 is low this can also contribute to his weakness, patient was given vitamin B12 1 mg IM, to further evaluate will do the TSH to check for his thyroid function, will have a PT OT evaluate the patient patient will benefit going into acute rehab before going home, patient states his symptoms have been persisting for quite sometime he seen by neurologist cardiology and 2 family physicians without any diagnosis (2) Nausea & vomiting: Code(s): R11.2 - Nausea with vomiting, unspecified Status: Acute Assessment and Plan: etiology uncertain most likely related patient alcohol abuse currently patient denies any symptoms (3) Essential hypertension: Code(s): I10 - Essential (primary) hypertension Status: Acute Assessment and Plan: will continue home regimen and monitor (4) Depression: Code(s): F32.9 - Major depressive disorder, single episode, unspecified Status: Acute Assessment and Plan: will continue home regimen and monitor patient will benefit consulting psychiatrist (5) Vitamin B12 deficiency: Code(s): E53.8 - Deficiency of other specified B group vitamins Status: Acute Assessment and Plan: possibly cause his weakness, tired and depression, patient was given 1 mg IM will give 1 more dose tomorrow DS: Summary Hospital Course Reason for hospitalization: Chief complaint: hyponatremia, nausea and vomiting Narrative: Cynthia Maldonado is a 59 year old male initially patient was seen in his primary care doctor's office yesterday on 01/06 he was sent to the lab where had couple of episode of vomiting and that persisted he came to emergency department for further evaluation did continue to have vomiting and abdominal pain but no diarrhea, he complains of profound weakness difficulty with ambulation, patient does admit to drink beer 6-7 cans beer daily and now that his home and quarantine he has been drinking more, his blood alcohol level was less than normal, his labs showed patient has elevated liver enzymes and abdominal ultrasound showed fatty liver most likely secondary to obesity and alcohol abuse, his hepatitis panel is negative for any infection, patient vitamin B12 is low this can also contribute to his weakness, patient was given vitamin B12 1 mg IM, to further evaluate will do the TSH to check for his thyroid function, will have a PT OT evaluate the patient patient will benefit going into acute rehab before going home, patient states his symptoms have been persisting for quite sometime he seen by neurologist cardiology and 2 family physicians without any diagnosis patient is a vitamin B12 deficiency and supplement, patient work with physical therapy is independent with his ADL will and discharge the patient home today. Status at Discharge Functional status at discharge: independent ambulation Overall status at discharge: patient is back to baseline Time Spent with Patient T
[2020-01-09] MEDS: CYANOCOBALAMIN INJ 1,000 MCG/ML VIAL 1000 MCG IM (10:40)
[2020-01-09] MEDS: POTASSIUM CHLORIDE 20 MEQ TABLET 40 MEQ PO (10:40)
[2020-01-09] MEDS: SILVERGEL (ELTA) 45 ML 1 APPLIC TOPICAL (10:41)
--- NOTE | 2020-01-09 14:16 | PCDIET ---
Nutritional screen for BMI 32 received. notes ETOH of 6 beers/day and possible fatty liver. Pt lives alone and eats a lot of microwaved food but states he eats okay. He does not eat a lot of sweets or soda. Pt encouraged to limit ETOH and increased liver supportive foods including 5-10 servings of fruits and veggies a day. We explored those he enjoys. Pt also encouraged to take MTV with bcomplex. Recommendation provided.Contact info provided for questions after d/c.
== END 2020-01-09 13:15 | disposition home or self-care (01) ==
LOC: ANHED 23:38 → ANH3MEDSUR 01-08 04:40
PROVIDERS: Emergency Medicine; Admitting Provider Internal Medicine; Emergency Provider Emergency Medicine; PCP Family Medicine; Visit Provider Family Medicine
DX: R53.1 Weakness (principal); E87.1 Hypo-osmolality and hyponatremia; R11.2 Nausea with vomiting, unspecified; E53.8 Deficiency of other specified B group vitamins; I10 Essential (primary) hypertension; F32.9 Major depressive disorder, single episode, unspecified; F10.10 Alcohol abuse, uncomplicated; R79.89 Other specified abnormal findings of blood chemistry; Z87.891 Personal history of nicotine dependence
CPT/HCPCS: 36415; 71046; 76705; 80053; 80074; 81001; 83735; 84443; 85027; 85055; 93005; 96361; 96372; 96374; 96375; 97116; 97161; 97165; 99285; A9270; G0378; J2550; J3411; J3420; J3475; J7030; J7120

== ENCOUNTER 2020-01-13 08:04 | Outpatient (RCR) | payer OTHER, SELFPAY ==
[2019-12-04 08:30] VITALS: BMI 30.9
--- NOTE | 2019-12-25 12:17 | PCWOUND ---
wocn note patient cancelled appointment for today due to falling at home. assessed patient's foot in the E.R.
== END 2020-01-24 10:21 | disposition home or self-care (01) ==
LOC: ANHWOC 08:04
PROVIDERS: PCP Family Medicine; Visit Provider Family Medicine
DX: S90.812D Abrasion, left foot, subsequent encounter (principal)
CPT/HCPCS: 99212; 99213; G0463

== ENCOUNTER 2020-01-29 17:32 | Inpatient (IN) | payer OTHER, SELFPAY ==
--- NOTE | ~2020-01-29 | MR_ITS ---
EXAMINATION: MR brain/brain stem wo/w con DATE: 01/31/2020 15:50 INDICATION: Stroke. TECHNIQUE: Magnetic resonance imaging (MRI) of the brain and brainstem was performed without and with 20 mL MultiHance intravenous contrast. Sequences included sagittal and axial T1-weighted FSE, axial diffusion-weighted FS EPI, axial T2*-weighted GRE, axial T2-weighted FLAIR Propeller, axial T2-weight ed Propeller, small rziqh-ka-wbfo coronal FIESTA, small lxgwh-fj-sppu coronal T1-weighted FSE, and sm all pyfmc-km-fstt axial T1-weighted SPGR. Postcontrast sequences included axial T1-weighted FSE, smal l whdpg-or-vvly coronal T1-weighted FSE, and small mziko-wf-zfos axial T1-weighted SPGR. Apparent dif fusion coefficient (ADC) maps were created. COMPARISON: Brain MRI 01/30/2020, head CT 01/21/2020 FINDINGS: There are scattered areas of nonspecific increased T2-weighted signal intensity in the cere bral white matter, which is within normal limits for the patient's age. There is no intracranial hemo rrhage, acute infarction, or abnormal intracranial mass lesion. The ventricles are normal in size. Th e internal auditory canals and inner and middle ears are normal. The mastoid air cells are normal. Th ere is mild mucosal thickening in the ethmoid sinuses. The orbits are normal. IMPRESSION: 1. Normal aging brain. Reviewed, dictated and finalized at location A. IMPRESSION: 1. Normal aging brain.
--- NOTE | ~2020-01-29 | XR_ITS ---
XR foot RT min 3V 02/01/2020 12:10 Indication: Right great toe pain Procedure: 4 views right foot Comparison: No prior studies for comparison. Findings: Osteopenia. Lisfranc joint intact. Mild osteoarthritis of the first MTP joint. There is mil d osteoarthritis of the interphalangeal joints. No acute fracture or traumatic malalignment. There is a degenerative calcaneal enthesophyte. No focal soft tissue abnormality. Mild soft tissue swelling m edial to the first MTP joint. No lytic defects. Impression: 1: No acute bone or joint abnormality. 2: Mild polyarticular osteoarthritis. Reviewed, dictated and finalized at location A. Impression: 1: No acute bone or joint abnormality. 2: Mild polyarticular osteoarthritis.
--- NOTE | ~2020-01-29 | CT_ITS ---
EXAMINATION: CT ankle RT wo con DATE: 01/31/2020 16:17 INDICATION: Right ankle pain with abnormality at the lateral malleolus on prior radiographs. TECHNIQUE: High resolution computed tomography (CT) of the right ankle was performed without intraven ous contrast. Additional sagittal and coronal reconstructions were performed. Automated exposure cont rol and iterative reconstruction technique were employed. The dose-length product was 370.98 mGy-cm. COMPARISON: Radiographs dated 01/30/2020 FINDINGS: There is a nondisplaced fracture along the anterolateral corner of the distal tibia underlying the fo otplate of the anterior inferior tibiofibular ligament. There are early bridging osteophytes along th e course of the tendon suggesting sequela of more chronic sprain. The combination of the tibial fract ure and osteophytes likely account for the linear lucency projecting over the lateral malleolus on th e prior radiographs. No other fractures identified. Small amount of heterotopic ossification along th e medial margin of the distal tip at the medial malleolus along the proximal superficial deltoid liga ment with second small heterotopic ossicle at the posterolateral corner of the tibial plafond and stephani ng the posterior inferior tibiofibular ligament both which are consistent likely sequela of chronic s prains. Mild polyarticular osteoarthritis at the tibiotalar joint and several of the joints the midfo ot. No right ankle joint effusion. There is soft tissue swelling about the ankle and distal lower leg extending over the dorsum of the foot. There is tendinopathy and longitudinal split tearing of the p eroneus brevis tendon which is thickened with partial-thickness cleft along the posterior margin loca efra slightly distal to the tip of the lateral malleolus. IMPRESSION: 1. Nondisplaced small fracture at the anterolateral corner of the tibial plafond. 2. Stigmata of chronic medial and lateral ankle sprains. 3. Tendinopathy and longitudinal split tear of the peroneus brevis tendon. Reviewed, dictated and finalized at location B. IMPRESSION: 1. Nondisplaced small fracture at the anterolateral corner of the tibial plafon d. 2. Stigmata of chronic medial and lateral ankle sprains. 3. Tendinopathy and longitudinal split tear of the peroneus brevis tendon.
--- NOTE | ~2020-01-29 | US_ITS ---
EXAMINATION: US venous doppler LE DATE: 01/31/2020 10:45 INDICATION: Right lower limb swelling and bilateral lower limb pain. TECHNIQUE: Grayscale ultrasound images without and with compression and Doppler ultrasound images of the bilateral lower extremity veins were obtained. COMPARISON: None. FINDINGS: There is noncompressible thrombus throughout the length of the right posterior tibial vein with small amount of residual flow on color Doppler. The visualized portions of right common femoral vein, prof unda (deep) femoral vein, femoral vein, popliteal vein gastrocnemius vein and greater saphenous vein outflow are patent. The right peroneal veins were unable to be visualized either grayscale or color D oppler imaging. The visualized portions of left common femoral vein, profunda femoral vein, femoral vein, popliteal v ein, posterior tibial veins, gastrocnemius vein and greater saphenous vein outflow are patent. The le ft peroneal veins were unable to be visualized on either contreras scale or color Doppler imaging. IMPRESSION: 1. Deep venous thrombosis in the right posterior tibial vein. No deep venous thrombosis in the left lower limb. Findings were discussed with Thi Khan, the nurse caring for the patient, at 11:08 AM. Reviewed, dictated and finalized at location B. IMPRESSION: 1. Deep venous thrombosis in the right posterior tibial vein. No deep venous t hrombosis in the left lower limb. Findings were discussed with davy Lozano nurse caring for the patient, at 11:08 AM.
--- NOTE | ~2020-01-29 | CT_ITS ---
EXAMINATION: CT brain wo con DATE: 01/29/2020 17:52 INDICATION: Increased weakness. Recent falls. TECHNIQUE: Computed tomography (CT) of the head was performed without intravenous contrast. The dose- length product was 681.00 mGy-cm. The mA was adjusted according to patient size. Iterative reconstruc tion technique was employed. COMPARISON: CT dated 12/25/2019 FINDINGS: Generalized atrophy. There are scattered mild periventricular and subcortical white matter changes, most likely related to small vessel ischemic disease (microangiopathy). Mild left frontal sc alp hematoma. No acute intracranial hemorrhage, infarction, mass or mass effect. No depressed skull f ractures. Small osteoma right ethmoid sinusitis reidentified. Paranasal sinuses and mastoids are pneu matized. IMPRESSION: 1. No acute intracranial abnormality. 2: Chronic age-related findings. Reviewed, dictated and finalized at location A.
--- NOTE | ~2020-01-29 | CT_ITS ---
EXAMINATION: CTA brain carotid DATE: 01/31/2020 16:18 INDICATION: Stroke. Frequent falls. TECHNIQUE: Computed tomographic angiography (CTA) of the head was performed without and with 100 mL O mnipaque-350 intravenous contrast. CTA of the neck was performed with intravenous contrast. Automated exposure control and iterative reconstruction technique were employed. The dose-length product was 1 973.08 mGy-cm. Maximum intensity projection and volume rendered 3D-reconstructions were created by davy sullivan technologist on a separate workstation. COMPARISON: Head CT 01/29/2020 FINDINGS: HEAD CTA: There is no intracranial hemorrhage, acute infarction, or abnormal intracranial mass lesion . There are scattered areas of low attenuation in the cerebral white matter, which is within normal l imits for the patient's age. The ventricles are normal in size. There is a 16 mm sclerotic lesion in right ethmoid sinus, likely an osteoma. The orbits are normal. The mastoid air cells are normal. Left vertebral artery is dominant. There is no significant stenosis of basilar artery or the posterior ce rebral arteries. There is no significant stenosis of the intracranial internal carotid arteries or an terior or middle cerebral arteries. Right A1 anterior cerebral artery segment is small, a normal vari ant. Anterior communicating artery is normal. Posterior communicating arteries are not identified. Th ere is no aneurysm. NECK CTA: There is a 1.6 cm nodule in left thyroid lobe. There are no pathologically enlarged lymph n odes. There is no significant stenosis of the vertebral arteries. There is no visible plaque in the p roximal left internal carotid arteries. There is 0% stenosis of the proximal right internal carotid a rtery relative to normal distal artery lumen diameter (NASCET criteria). There is 0% stenosis of the proximal left internal carotid artery relative to normal distal artery lumen diameter. There is moder ate cervical spondylosis. IMPRESSION: 1. Normal aging brain. 2. No aneurysm or significant intracranial arterial stenosis. 3. 0% stenosis of the proximal internal carotid arteries relative to normal distal artery lumen diame ters (NASCET criteria). 4. 1.6 cm left thyroid nodule. Consider thyroid ultrasound for risk stratification. Reviewed, dictated and finalized at location A. IMPRESSION: 1. Normal aging brain. 2. No aneurysm or significant intracranial arterial stenosis. 3. 0% stenosis of the proximal internal carotid arteries relative to normal dis jose rafael artery lumen diameters (NASCET criteria). 4. 1.6 cm left thyroid nodule. Consider thyroid ultrasound for risk stratificat ion.
--- NOTE | ~2020-01-29 | XR_ITS ---
EXAMINATION: XR ankle RT 2V DATE: 01/30/2020 16:06 INDICATION: Right ankle pain post fall TECHNIQUE: Anteroposterior, oblique, mortise, and lateral views of the right ankle were obtained. COMPARISON: None. FINDINGS: Alignment is normal. Oblique linear lucencies projecting across the lateral malleolus on the frontal projection and across the anterior cortex on the lateral projection which is suspicious but not defin itive for nondisplaced fracture. No other lesions suspicious for fracture. Small heterotopic ossicle near the tip of the medial malleolus likely sequela of chronic deltoid ligament sprain. Joint spaces are relatively preserved. Small plantar calcaneal spur. Mild soft tissue swelling anterior and latera l to the ankle. IMPRESSION: 1. Linear lucency at the lateral malleolus suspicious but not diagnostic for nondisplaced fracture. C orrelate for point tenderness and consider either additional oblique projections or CT for more defin itive determination. Reviewed, dictated and finalized at location B. IMPRESSION: 1. Linear lucency at the lateral malleolus suspicious but not diagnostic for no ndisplaced fracture. Correlate for point tenderness and consider either additio nal oblique projections or CT for more definitive determination.
--- NOTE | ~2020-01-29 | MR_ITS ---
EXAMINATION: MR brain/brain stem wo/w con DATE: 01/30/2020 14:30 INDICATION: Loss of balance. Weakness and frequent falls. TECHNIQUE: Magnetic resonance imaging (MRI) of the brain and brainstem was performed without and with 20 mL MultiHance intravenous contrast. Sequences included sagittal and axial T1-weighted FSE, axial diffusion-weighted FS EPI, axial T2*-weighted GRE, axial T2-weighted FLAIR Propeller, and axial T2-we ighted Propeller. Postcontrast sequences included axial and coronal T1-weighted FSE. Apparent diffusi on coefficient (ADC) maps were created. COMPARISON: Head CT 01/29/2020 FINDINGS: There are scattered areas of nonspecific increased T2-weighted signal intensity in the cere bral white matter, which is within normal limits for the patient's age. There is no intracranial hemo rrhage, acute infarction, or abnormal intracranial mass lesion. The ventricles are normal in size. Th e orbits are normal. There is mild mucosal thickening in the ethmoid sinuses. The mastoid air cells a re normal. IMPRESSION: 1. Normal aging brain. Reviewed, dictated and finalized at location A. IMPRESSION: 1. Normal aging brain.
[2020-01-29 17:27] VITALS: BP 186/107; PULSE 100; RESP 20; TEMP 37.1; O2SAT 97
--- NOTE | 2020-01-29 17:31 | ECG_ITS ---
Measurements Intervals [place] Rate: 99 P: 24 TN: 186 QRS: 3 QRSD: 102 T: 16 QT: 357 QTc: 459 Interpretive Statements SINUS RHYTHM POSSIBLE LEFT ATRIAL ENLARGEMENT INCOMPLETE RIGHT BUNDLE BRANCH BLOCK BORDERLINE ECG Electronically Signed On 01-29-2020 17:50:22 CDT by Kevon Carlisle D.O.
[2020-01-29 17:47] LABS: Basophils Percent Auto 0.3 % (0.2-1.2); Eosinophils Percent Auto 0.5 % (0-4.4); Hematocrit 38.5 % (42.0-52.0); Hemoglobin 13.5 g/dL (14.0-18.0); Immature Granulocyte Absolute 0.04 K/mm3 (0.00-0.031); Immature Granulocyte Percent A 0.5 % (0-0.5); Lymphocytes Absolute Auto 0.26 K/mm3 (0.9-3.2); Lymphocytes Percent Auto 3.3 % (18.3-44.2); Mean Corpuscular HGB Conc 35.1 g/dl (32-36); Mean Corpuscular Hemoglobin 34.3 pg (26-34); Mean Corpuscular Volume 97.7 fl (80-100); Mean Platelet Volume 9.7 fl (7.4-10.4); Monocytes Absolute Auto 0.5 K/mm3 (0.1-0.6); Monocytes Percent Auto 6.7 % (2.6-8.5); Neutrophils Absolute Auto 6.9 K/mm3 (1.3-6.7); Neutrophils Percent Auto 88.7 % (45.5-73.1); Platelet Count Result 142 k/mm3 (150-375); Red Blood Count 3.94 M/mm3 (4.6-6.20); Red Cell Distribution Width 11.9 % (11.5-14.5); White Blood Count 7.8 K/mm3 (4.5-10.0)
[2020-01-29 17:58] VITALS: BP 224/108; PULSE 97; PULSE 98; RESP 16; O2SAT 97
[2020-01-29 18:49] VITALS: BP 180/93; PULSE 95; RESP 17
[2020-01-29 18:54] LABS: Albumin Level 4.3 g/dL (3.5-5.1); Alkaline Phosphatase 110 U/L (38-126); Anion Gap 10 mmol/L (8-16); Aspartate Amino Transferase 94 U/L (17-59); Bilirubin,Total 1.7 mg/dL (0.2-1.3); Blood Urea Nitrogen 5 mg/dL (9-20); Calcium 9.4 mg/dL (8.4-10.2); Carbon Dioxide 28 mmol/L (22-30); Chloride 93 mmol/L (98-107); Estimated CRCL calculation 131 ml/min; Estimated Glomerular Filt Rate > 60; Glucose 141 mg/dL (75-110); Sodium 131 mmol/L (137-145)
[2020-01-29 18:59] LABS: Alanine Aminotransferase 63 U/L (4-50)
--- NOTE | 2020-01-29 19:03 | PC.NURSE ---
ortho bp supine 186/83 hr 100 sitting 184/108 hr 106 pt unable to stand for ortho bp due to unsteadyness and gait provider made aware
[2020-01-29 19:04] LABS: Troponin I 0.016 ng/mL (0.000-0.034)
[2020-01-29 19:16] LABS: Add Urine Microscopic? YES; Appearance Urine Clear (Clear); Bilirubin Urine Negative (Negative); Blood Urine 1+ (Negative); Color Urine Yellow (Yellow); Glucose Urine UA 2+ mg/dL (Negative); Ketones Urine Negative (Negative); Leukocyte Esterase Ur Negative LEU/UL (Negative); Mucus Urine Rare /lpf; Nitrate Urine Negative (Negative); Protein Urine 1+ mg/dL (Negative); Specific Grav Ur 1.013 (1.001-1.035); Squamous Epithelial Cell Urine Rare /hpf (Few); Urobilinogen Urine Negative mg/dL (<2.0); WBC Urine 0-3 /hpf
--- NOTE | 2020-01-29 19:48 | ED.GENADULT ---
HPI - General Adult General Chief complaint: Weakness Stated complaint: WEAKNESS Time Seen by Provider: 01/29/20 17:37 Source: patient Mode of arrival: EMS Limitations: no limitations History of Present Illness HPI narrative: 59-year-old with a history of prostate CA, hypertension, alcohol abuse here with complaints of multiple falls. Patient states that he was here in the hospital 2 weeks ago for the same however since then he fell several times. Patient states that he drinks alcohol on a daily basis during the day. Patient denied that these falls are secondary to alcohol use. Patient states that his falls are mostly when he gets up out of the bed. No history of loss of consciousness. He denies any prodromal symptoms prior to fall. Onset (ago): day(s) (4) Location: head, face and upper extremity Exacerbating factors: none Associated symptoms: denies other symptoms Related Data Home Medications Medication Instructions Recorded Confirmed naproxen sodium 220 mg capsule 220 mg PO Q12H 09/09/19 01/08/20 Culturelle 1 cap PO DAILY 01/08/20 01/08/20 valerian root extract 300 mg PO HS PRN 01/08/20 01/08/20 Allergies Allergy/AdvReac Type Severity Reaction Status Date / Time No Known Allergies Allergy Verified 01/29/20 17:42 Review of Systems Review of Systems: All systems reviewed & are unremarkable except as noted in HPI and below Constitutional: Constitutional: Reports no additional constitutional complaints Eyes: Eyes: Reports no additional eye complaints ENT: Reports system reviewed and no additional complaints, except as documented Cardiovascular: Cardiovascular: Reports no additional cardiovascular complaints Respiratory: Respiratory: Reports no additional respiratory complaints Gastrointestinal: Gastrointestinal: Reports no additional gastrointestinal complaints Genitourinary: Genitourinary: Reports no additional male genitourinary complaints Musculoskeletal: Musculoskeletal: Reports no additional musculoskeletal complaints [facility] Past Medical History Medical History (Updated 01/29/20 @ 20:03 by Andrea Dennison MD) Alcohol abuse Fracture of metatarsal of left foot, closed Frequent falls Laceration of occipital region of scalp Syncope and collapse Surgical History Surgical History History of appendectomy Family History Family History Father Malignant neoplasm of prostate Mother COPD (chronic obstructive pulmonary disease) Other Family history of malignant neoplasm Social History Social History Social History: Smoking packs per day: 1 Smoking cigarettes per day: 20.0 Years smoked: 20 Smoking pack-years: 20.00 Smoking status: Former smoker Tobacco type: cigarettes Second hand tobacco smoke exposure: No Alcohol intake: current Drinks per week: 42 Substance use: never Substance use type: does not use Gender identity (if verbalized by the patient): Male Spiritual care concerns: No Exam Narrative: Exam Narrative: GENERAL: Well-appearing, well-nourished, and in no acute distress. HEAD: Normocephalic, atraumatic. Has bruises around right orbital, left frontal EYES: PERRLA and EOMI. ENT: Nares clear, no rhinorrhea or epistaxis. Mucous membranes moist. NECK: Supple. CHEST: Clear to auscultation. No respiratory distress. HEART: Regular rate and rhythm. No murmur heard. Normal peripheral pulses. ABDOMEN: Soft, nontender, nondistended, normal active bowel sounds. EXTREMITIES: Normal range of motion. No edema. Bruising on the left biceps SKIN: Warm, dry, no rash. NEURO: No focal deficits. Alert and oriented x3. PSYCH: Normal mood and affect. Course Course Emergency Course: Patient comfortably lying on bed in no discomfort, informed him about his lab work, CT findings. We will admit him t
--- NOTE | 2020-01-29 20:54 | PM.IMHP ---
H&P: HPI History of Present Illness Date/Time: 01/29/20 20:54 Chief complaint: Frequent Falls Narrative: This is a pleasant 59-year-old male with known history of hypertension, prostate cancer, and alcohol abuse who is known to our hospitalist service from a recent admission about 3 weeks ago and return to the hospital tonight with history of multiple falls at home. The patient is known to live alone and relates that he has been having what he refers to as drop attacks for over a year now. Since the patient's most recent hospitalization about 3 weeks ago for generalized weakness he has mostly been laying around at home and is on unpaid leave. He gets his groceries delivered to his house and states that on any given day he mostly just lays around watches TV. Approximately 1 week ago while he was ambulating from the living room to the bathroom he suffered a fall which he described as his body going limp and him falling. He was not sure if he actually had loss of consciousness during that episode. Characteristic of when he has these attacks he did also have associated nausea and vomiting. He was doing well until last night when again he suffered multiple falls. The 1st of which occurred when he ambulated to the bathroom and remembers going into the bathroom but then his body went limp and he fell. He struck his head on the toilet and is not sure how long he was on the ground for. He ended up crawling back to his bed. Sometime afterwards he got up to go to the bathroom again and is not sure if he even made it to the bathroom because he believes he fell in the hallway. Again the patient suffered nausea and vomiting with his episode of possibly passing out. The 3rd fall that occurred shortly afterwards was when he was actually in the bathroom standing and urinating he admits that he actually passed out fell and believes he hit his head on the bathtub. finally the patient suffered a 4th fall sometime afterwards when he was ambulating. Altogether the patient suffered 4 falls within a 6 hour time period. Previously the patient was known to consume 5-6 alcoholic beverages daily and he tells me that he has cut this down as he has been told that this may be the cause of his falls. The patient tells me that now he is drinking only 1-2 alcoholic beverages daily. His last alcoholic drink was last night. He denies any fevers, chills, chest pain, shortness of breath, cough, abdominal pain, dysuria, hematuria, rectal bleeding, or focal neurological symptoms. He is known to have chronic diarrhea which he states is unchanged. Tonight in the emergency room the patient underwent brain CT which did not demonstrate any acute intracranial abnormality. We been asked to admit the patient to the hospital as he is unsafe to go home. The patient also relates to me that he has seen neurology as well as neuro surgery and has not been given any sufficient diagnosis for his symptoms. Routine labs were obtained in the emergency room this evening which demonstrated mild transaminitis which appears to be chronic. He also had a carotid Doppler ultrasound performed in October which showed less than 50% stenosis bilaterally. the patient denies any recent medication changes. Review of Systems Review of Systems: All systems reviewed & are unremarkable except as noted in HPI and below PMFSH Past Medical History Medical History Alcohol abuse Fracture of metatarsal of left foot, closed Frequent falls Laceration of occipital region of scalp Syncope and collapse Surgical History Surgical History History of appendectomy Family History Family History Father Malignant neoplasm of prostate Mother COPD (chronic obstructive pulmonary disease) Other Family history of malignant neoplasm Social History Social Hi
[2020-01-29 21:05] VITALS: BP 192/108; PULSE 113; RESP 20; O2SAT 97
[2020-01-29 21:10] VITALS: PULSE 96
--- NOTE | 2020-01-29 21:12 | ADMGEN ---
This patient, Cynthia Maldonado, was admitted to 2 Medical Room 255-01. Patient/family oriented to hospital policies and general routines including ID bracelet, bed and alarms, visiting hours, pain management, procedures, bathroom and other care routines, personal items, smoking policy, room service/diet, and visiting hours. Information on how to activate the Rapid Response Team has been discussed. Patient/Family are encouraged to report perceived risks to care and to ask questions if they do not understand what they are told or what they should do.
[2020-01-29] MEDS: SODIUM CHLORIDE 0.9% IV 1,000 ML 75 ML IV CONT (21:51)
[2020-01-29 22:30] VITALS: BP 162/87; PULSE 89; RESP 21; TEMP 36.6; O2SAT 100; BMI 34.0
[2020-01-29] MEDS: hydrALAZINE HCL 20 MG/ML VIAL 10 MG IV PUSH (22:55)
[2020-01-30] VITALS (18 sets, daily range): BP systolic 152–185; BP diastolic 81–96; PULSE 85–110; RESP 18–20; TEMP 36.4–37; O2SAT 95–99
[2020-01-30] MEDS: ONDANSETRON INJ 4 MG/2 ML VIAL IV PUSH (00:26)
[2020-01-30] MEDS: HYDROcodone/acetaminophen (*CRX) 5-325 MG TABLET 1 TAB PO ×2 (00:26→18:37)
[2020-01-30] MEDS: LORazepam INJ (*CRX) 2 MG/ML VIAL 1 MG IV PUSH ×2 (03:19→21:47)
[2020-01-30 06:10] LABS: Basophils Percent Auto 0.3 % (0.2-1.2); Eosinophils Percent Auto 0.3 % (0-4.4); Hematocrit 34.7 % (42.0-52.0); Hemoglobin 12.1 g/dL (14.0-18.0); Immature Granulocyte Absolute 0.04 K/mm3 (0.00-0.031); Immature Granulocyte Percent A 0.6 % (0-0.5); Immature Platelet Fraction Pct 4.6 % (0.9-11.2); Lymphocytes Absolute Auto 0.75 K/mm3 (0.9-3.2); Lymphocytes Percent Auto 11.1 % (18.3-44.2); Mean Corpuscular HGB Conc 34.9 g/dl (32-36); Mean Corpuscular Hemoglobin 34.3 pg (26-34); Mean Corpuscular Volume 98.3 fl (80-100); Mean Platelet Volume 9.5 fl (7.4-10.4); Monocytes Absolute Auto 0.8 K/mm3 (0.1-0.6); Monocytes Percent Auto 11.5 % (2.6-8.5); Neutrophils Absolute Auto 5.2 K/mm3 (1.3-6.7); Neutrophils Percent Auto 76.2 % (45.5-73.1); Platelet Count Result 131 k/mm3 (150-375); Red Blood Count 3.53 M/mm3 (4.6-6.20); Red Cell Distribution Width 12.1 % (11.5-14.5); White Blood Count 6.8 K/mm3 (4.5-10.0)
[2020-01-30 06:19] LABS: Anion Gap 6 mmol/L (8-16); Blood Urea Nitrogen 5 mg/dL (9-20); Calcium 8.9 mg/dL (8.4-10.2); Carbon Dioxide 28 mmol/L (22-30); Chloride 95 mmol/L (98-107); Estimated CRCL calculation 143 ml/min; Estimated Glomerular Filt Rate > 60; Glucose 99 mg/dL (75-110); Magnesium 1.7 mg/dL (1.6-2.3); Potassium 3.4 mmol/L (3.4-5.0); Sodium 129 mmol/L (137-145)
[2020-01-30 07:53] LABS: Free T4 Free Thyroxine Reflex 0.97 ng/dL (0.78-2.19)
[2020-01-30 09:00] LABS: Folic Acid 17.8 ng/mL (2.76->20)
[2020-01-30] MEDS: THERAPEUTIC MULTIVITAMINS/MINERALS TAB (*BKC) 1 TABLET PO (09:07)
[2020-01-30] MEDS: carvediloL 12.5 MG TABLET PO ×2 (09:07→21:48)
[2020-01-30] MEDS: busPIRone HCL 5 MG TABLET PO ×3 (09:07→17:54)
[2020-01-30] MEDS: THIAMINE HCL 200 MG/2 ML VIAL 100 MG IV PUSH (09:08)
[2020-01-30] MEDS: SILVERGEL (ELTA) 45 ML 1 APPLIC TOPICAL (09:08)
[2020-01-30] MEDS: SODIUM CHLORIDE 0.9% IV 1,000 ML 75 ML IV CONT (09:08)
[2020-01-30 09:17] LABS: Total Triiodothyronine (T3) 1.25 NG/ML (0.97-1.69)
--- NOTE | 2020-01-30 13:43 | PC.NURSE ---
pt to MRI via wheelchair
[2020-01-30] MEDS: PERFLUTREN LIPID MICROSPHERES 1.5 ML VIAL DILUTED TO 10 ML TOTAL VOLUME IV PUSH (15:25)
--- NOTE | 2020-01-30 15:30 | PM.IMPN ---
Progress Note: A&P Assessment and Plan (1) Syncope and collapse: Code(s): R55 - Syncope and collapse Status: Acute Assessment and Plan: Head CT negative. Brain MRI showed normal aging brain. The patient's symptoms correlate with syncope and collapse. Patient reports these episodes occur upon standing. He has had multiple falls and has been evaluated by neurology and cardiology. I spoke with his PCP (Dr. Pena) via phone regarding the situation. The patient reports he was told by neurology at [place] that there was nothing that could be done for him. Dr. Pena has not been able to receive reports from that neurology visit and prefers that patient follow with neurology locally, therefore I will place a consult for our neurologists to evaluate him. He has been seen by cardiology and the patient reports Dr. Ramirez felt strongly that this was not cardiac in origin. He has had a Holter monitor and a stress test with no acute findings. When he was evaluated at [place], he was told this may be narcolepsy. Seizures are considered. He does have a history of alcohol abuse. Echo has been ordered and is pending EEG has been ordered and is pending Consult placed to neurology. Recommendations appreciated. Monitor orthostatics. (2) Frequent falls: Code(s): R29.6 - Repeated falls Status: Chronic Assessment and Plan: He has been seen in the ED many times here related to injuries from falls. In September 2019 he was transferred to [facility] after suffering a frontal cephalohematoma to ensure there was no contrecoup subdural hematoma. He reports he was not informed of any brain bleed at that time. Otherwise, he has had several other minor injuries. He was seen by plastics for a forehead wound in December. At this time he complains of left ankle and calf pain. B12 and folate wnl. TSH wnl. Seems to be related to syncope as above. He has had 5 head CTs since September 2019 related to falls. X-ray left ankle secondary to pain PT and OT to evaluate. Recommendations appreciated Neurology consult as noted above. Fall precautions in place (3) Alcohol abuse: Code(s): F10.10 - Alcohol abuse, uncomplicated Status: Chronic Assessment and Plan: patient reports drinking about 1-2 beers nightly. He reports that he used to be drinking about 5-6 beers but is slowly cutting down. He states that for him, drinking beer is a hobby and he does not feel that it is problematic. He does admit that his drinking has increased a bit since started the pandemic as he has not been working. He notes that he has gone several days without drinking in the past and has never had any symptoms of withdrawal. At this time, he does not have any tremors, anxiety, hallucinations, or additional symptoms. CIWA protocol is in place continue IV thiamine Ativan as needed for withdrawal we discussed the importance of alcohol cessation, especially given his frequent falls and current issues. (4) Generalized weakness: Code(s): R53.1 - Weakness Status: Acute Assessment and Plan: Seems to be related to above falls with a component of deconditioning as patient has become quite sedentary since the start of the pandemic. PT and OT are following. (5) Transaminitis: Code(s): R74.01 - Elevation of levels of liver transaminase levels Status: Chronic Assessment and Plan: Mildly elevated. Similar to last hospital stay about 3 weeks ago. On 01/08/2020 he had a upper quadrant ultrasound which showed hepatic steatosis. Hepatitis panel was negative at that time. Monitor LFTs alcohol cessation discussed proper nutrition and exercise is encouraged (6) Essential hypertension: Code(s): I10 - Essential (primary) hypertension Status: Chronic Assessment and Plan: blood pressure evaluated today is elevated at 173/92. Continue losartan and Coreg IV hydralazine avila
--- NOTE | 2020-01-30 21:10 | ECHO_ITS ---
Patient Info Name: Cynthia Maldonado Age: 59 years : 1960 Gender: Male Ht: 75 in Wt: 257 lbs BSA: 2.51 m2 HR: 89 bpm BP: 173 / 92 mmHg Heart Rhythm: Sinus Rhythm Technical Quality: Good Exam Date: 01/30/2020 3:01 PM Exam Location: [facility] Pulmonary Patient Status: Inpatient Admit Date: 01/30/2020 Staff Ordering Physician: Howie Kang MD [employer] Boat Operator: Conrad Orellana RDCS, RT Attending Provider: Meka Byrnes PA-C Referring Physician: Jorge Luis SAWYER; Exam Type: CA echo dop color flow w con Study Info Indications R55 - Syncope and collapse Complete two-dimensional, color flow and Doppler transthoracic echocardiogram is performed with contrast to opacify the left ventricle and to improve the deliniation of the left ventricle endocardial borders. Contrast/Agitated Saline Contrast/Ag. Saline: Definity Amount: 2.00 ml Administered By: Hadley Watt, RN Summary 1. Technically difficult echocardiogram. 2. Left ventricular systolic function is normal, estimated at 60-65%. 3. Trivial amount of mitral regurgitation identified. 4. Definity contrast injected to improve visualization. Left Ventricle Left ventricular systolic function is normal, estimated at 60-65%. The left ventricular diastolic function is normal. Definity contrast injected to improve visualization. Right Ventricle Right ventricular chamber dimension is normal. Left Atria Left atrial chamber dimension is mildly enlarged. Right Atria Right atrial chamber dimension is normal. Aortic Valve The aortic valve is trileaflet. Pulmonic Valve The pulmonic valve is not well visualized. Mitral Valve The mitral valve has normal leaflets. Trivial amount of mitral regurgitation identified. Tricuspid Valve The tricuspid valve leaflets are not well visualized. Pericardium/Pleural The pericardium appears normal. Aorta The aortic root size at the sinus of Valsalva is normal. Left Ventricular Outflow Tract Name Value Normal LVOT 2D LVOT Diameter 2.15 cm LVOT Doppler LVOT Peak Gradient 3 mmHg LVOT Mean Gradient 1 mmHg LVOT VTI 17.43 cm LVOT VTI/AV VTI Ratio 0.85 LVOT Stroke Volume 63.13 ml LVOT CO 5.17 l/min LVOT CI 2.06 L/min/m2 Mitral Valve Name Value Normal MV Doppler MV Decel [place] 418.46 cm/s2 MV PHT 0 s MV Area (PHT) 3.66 cm2 4.00-5.00 MV Diastolic Function MV E Peak Velocity 86.68 cm/s MV A Peak Velocity 68.
[2020-01-30] MEDS: LOSARTAN POTASSIUM 100 MG TABLET PO (21:40)
[2020-01-31] VITALS (11 sets, daily range): BP systolic 154–178; BP diastolic 68–96; PULSE 72–92; RESP 18–20; TEMP 36.4–37.2; O2SAT 95–97
[2020-01-31] MEDS: HYDROcodone/acetaminophen (*CRX) 5-325 MG TABLET 1 TAB PO ×2 (00:41→16:45)
[2020-01-31 05:46] LABS: Hematocrit 32.6 % (42.0-52.0); Hemoglobin 11.5 g/dL (14.0-18.0); Immature Platelet Fraction Pct 6.4 % (0.9-11.2); Mean Corpuscular HGB Conc 35.3 g/dl (32-36); Mean Corpuscular Volume 99.1 fl (80-100); Platelet Count Result 116 k/mm3 (150-375); Red Blood Count 3.29 M/mm3 (4.6-6.20); Red Cell Distribution Width 11.9 % (11.5-14.5)
[2020-01-31 05:50] LABS: Alanine Aminotransferase 40 U/L (4-50); Albumin Level 3.6 g/dL (3.5-5.1); Alkaline Phosphatase 77 U/L (38-126); Anion Gap 7 mmol/L (8-16); Aspartate Amino Transferase 47 U/L (17-59); Bilirubin,Total 1.5 mg/dL (0.2-1.3); Blood Urea Nitrogen 9 mg/dL (9-20); Calcium 8.8 mg/dL (8.4-10.2); Carbon Dioxide 28 mmol/L (22-30); Chloride 90 mmol/L (98-107); Estimated CRCL calculation 143 ml/min; Estimated Glomerular Filt Rate > 60; Glucose 90 mg/dL (75-110); Potassium 3.2 mmol/L (3.4-5.0); Sodium 125 mmol/L (137-145)
[2020-01-31] MEDS: busPIRone HCL 5 MG TABLET PO ×3 (08:59→16:46)
[2020-01-31] MEDS: carvediloL 12.5 MG TABLET PO ×2 (08:59→20:27)
[2020-01-31] MEDS: CITALOPRAM HYDROBROMIDE 20 MG TABLET PO (08:59)
[2020-01-31] MEDS: THIAMINE HCL 200 MG/2 ML VIAL 100 MG IV PUSH (08:59)
[2020-01-31] MEDS: SILVERGEL (ELTA) 45 ML 1 APPLIC TOPICAL (09:00)
[2020-01-31] MEDS: THERAPEUTIC MULTIVITAMINS/MINERALS TAB (*BKC) 1 TABLET PO (09:00)
--- NOTE | 2020-01-31 14:02 | WPDNEURCNPN ---
Assessment and Plan Additional Plan will need the MRI of the brain stem, CTA before any further investigations are carried out such as EMG nerve conduction study Consult date: 01/31/20 Time Seen: 14:00 HPI: Cynthia Maldonado is a 59 year old male 59 years old right-handed male has been [facility] through the emergency room with complaints of multiple falls at home and in addition to the statement by the patient that he has been experiencing drop attacks for more than a year patient does have ongoing history of 1. Hypertension 2. Prostate cancer 3. Alcohol abuse and has been recently hospitalized about 3 [facility]. Most of the time he is laying around at home gases groceries delivered to his house but approximately 1 week ago he was ambulating from the living room to the bathroom and he suffered a fall describing as the whole body went limp he did not become unconscious but he does complains of nausea and vomiting he reported 1 of the fall resulting in the of bathroom when his body went limp at and he was stuck to the toilet again the patient suffered nausea and vomiting with his episodes of these passing out he has been consuming alcohol 5 to 6 drinks daily and has been told that his falls are secondary to the drinking in the emergency room he had a CT scan done which was negative in the past in addition to the history of alcohol abuse and frequent falls he has history of metatarsal left foot fracture laceration of the occipital region the scalp and appendectomy evaluation up until now revealed him to have normal MRI of the brain normal echocardiogram, suspicious nondisplaced lateral malleolar fracture Review of Systems Review of Systems: All systems reviewed & are unremarkable except as noted in HPI and below PMFSH Past Medical History Medical History Alcohol abuse Fracture of metatarsal of left foot, closed Frequent falls Laceration of occipital region of scalp Syncope and collapse Surgical History Surgical History History of appendectomy Family History Family History Father Malignant neoplasm of prostate Mother COPD (chronic obstructive pulmonary disease) Other Family history of malignant neoplasm Social History Social History Social History: Smoking packs per day: 1 Smoking cigarettes per day: 20.0 Years smoked: 20 Smoking pack-years: 20.00 Smoking status: Former smoker Tobacco type: cigarettes Second hand tobacco smoke exposure: No Alcohol intake: current Drinks per week: 49 Substance use: never Substance use type: does not use Gender identity (if verbalized by the patient): Male Spiritual care concerns: No Meds Home Medications and Allergies Home Medications Medication Instructions Recorded Confirmed Type naproxen sodium 220 mg capsule 220 mg PO PRN PRN 09/09/19 01/29/20 History carvedilol 12.5 mg tablet 12.5 mg PO Q12H #180 tablet 11/19/19 01/29/20 Rx citalopram 20 mg tablet 20 mg PO DAILY #90 tablet 12/03/19 01/29/20 Rx buspirone 5 mg tablet 5 mg PO TID #90 tablet 12/10/19 01/29/20 Rx Culturelle 1 cap PO DAILY 01/08/20 01/29/20 History valerian root extract 300 mg PO HS PRN 01/08/20 01/29/20 History multivitamin with minerals 1 tablet PO DAILY #90 tablet 01/09/20 01/29/20 Rx [Multiple Vitamin-Minerals] doxazosin 2 mg PO HS 01/29/20 01/29/20 History losartan 100 mg PO HS 01/29/20 01/29/20 History trazodone 100 mg PO HS 01/29/20 01/29/20 History Allergies Allergy/AdvReac Type Severity Reaction Status Date / Time No Known Allergies Allergy Verified 01/29/20 21:33 Vital Signs Vital Signs - 24 hr 01/30/20 16:00 01/30/20 16:15 01/30/20 18:00 Temperature 37.0 C Pulse Rate 96 85 Pulse Rate [Left Radial]
--- NOTE | 2020-01-31 14:12 | PM.IMPN ---
Progress Note: A&P Assessment and Plan (1) Syncope and collapse: Code(s): R55 - Syncope and collapse Status: Acute Assessment and Plan: Head CT negative. Brain MRI showed normal aging brain. The patient's symptoms correlate with syncope and collapse. Patient reports these episodes occur upon standing. He has had multiple falls and has been evaluated by neurology and cardiology. I spoke with his PCP (Dr. Pena) via phone regarding the situation. The patient reports he was told by neurology at [place] that there was nothing that could be done for him. Dr. Pena has not been able to receive reports from that neurology visit and prefers that patient follow with neurology locally, therefore I placed a consult for our neurologists to evaluate him. He has been seen by cardiology and the patient reports Dr. Ramirez felt strongly that this was not cardiac in origin. He has had a Holter monitor and a stress test with no acute findings. When he was evaluated at [place], he was told this may be narcolepsy. Seizures are considered. He does have a history of alcohol abuse. Echo performed with no evidence of significant valvular disease. EEG has been ordered and is pending Consult placed to neurology. Recommendations appreciated. Monitor orthostatics. CTA head/neck recommended by neurology. I will place order. (2) Frequent falls: Code(s): R29.6 - Repeated falls Status: Chronic Assessment and Plan: He has been seen in the ED many times here related to injuries from falls. In September 2019 he was transferred to [facility] after suffering a frontal cephalohematoma to ensure there was no contrecoup subdural hematoma. He reports he was not informed of any brain bleed at that time. Otherwise, he has had several other minor injuries. He was seen by plastics for a forehead wound in December. B12 and folate wnl. TSH mildly low with normal T3 and T4. Seems to be related to syncope as above. He has had 5 head CTs since September 2019 related to falls. PT and OT to evaluate. Recommendations appreciated Neurology consult as noted above. Fall precautions in place (3) Alcohol abuse: Code(s): F10.10 - Alcohol abuse, uncomplicated Status: Chronic Assessment and Plan: patient reports drinking about 1-2 beers nightly. He reports that he used to be drinking about 5-6 beers but is slowly cutting down. He states that for him, drinking beer is a hobby and he does not feel that it is problematic. He does admit that his drinking has increased a bit since started the pandemic as he has not been working. He notes that he has gone several days without drinking in the past and has never had any symptoms of withdrawal. At this time, he does not have any tremors, anxiety, hallucinations, or additional symptoms. CIWA protocol is in place continue IV thiamine Ativan as needed for withdrawal we discussed the importance of alcohol cessation, especially given his frequent falls and current issues. (4) Generalized weakness: Code(s): R53.1 - Weakness Status: Acute Assessment and Plan: Seems to be related to above falls with a component of deconditioning as patient has become quite sedentary since the start of the pandemic. PT and OT are following. (5) Acute hyponatremia: Code(s): E87.1 - Hypo-osmolality and hyponatremia Status: Acute Assessment and Plan: On review of prior labs, seems to be ongoing. He reports drinking excess amounts of water. Sodium is 125 today. Initiate 1200 ml fluid restriction diet Monitor sodium closely (6) DVT (deep venous thrombosis): Code(s): I82.409 - Acute embolism and thrombosis of unspecified deep veins of unspecified lower extremity Status: Acute Assessment and Plan: Patient complained of right ankle/calf pain. Venous doppler showed DVT in the right posterior tibial vein. Given his frequent episodes of falling
[2020-01-31 17:11] LABS: Creatinine Urine 46.5 mg/dL
--- NOTE | 2020-01-31 17:15 | PC.NURSE ---
pain reassessed reports no pain, resting comfortably
[2020-01-31 17:17] LABS: Sodium Urine Random 90 meq/L
--- NOTE | 2020-01-31 19:18 | PM.CNGS ---
Assessment and Plan Assessment and plan (1) Deep vein thrombosis (DVT) of calf muscle vein of right lower extremity: Code(s): I82.461 - Acute embolism and thrombosis of right calf muscular vein Status: Acute Assessment and Plan: this falls under the category of isolated distal or calf vein DVT. These pose a much lower risk of problems than more proximal DVT. There are no studies supporting the efficacy of IVC filters in isolated calf vein DVT. In general, a 7-10% risk of more proximal migration is associated with these. A 2-3% risk of pulmonary embolism is also associated. Filters have approximately a 4% risk of having a pulmonary embolism. I agree patient is a poor candidate for anticoagulation. Options at this point are to not treat the calf vein DVT at all. Consider repeat venous Doppler in 1-2 weeks to look for propagation. Although propagation risk is low, should it be present, filter would be indicated. Thank you for asking me to see this patient in consultation. If I can be of further assistance please let me know. (2) Fall: Code(s): W19.XXXA - Unspecified fall, initial encounter Status: Chronic Assessment and Plan: Workup in progress (3) Right ankle pain: Code(s): M25.571 - Pain in right ankle and joints of right foot Status: Acute Assessment and Plan: appears to be due to nondisplaced fracture of distal tibia (4) Alcohol abuse: Code(s): F10.10 - Alcohol abuse, uncomplicated Status: Chronic Assessment and Plan: reportedly drinks between 40 and 50 alcohol beverages a week. Patient reports he has been cutting back however. This is felt to not be the cause of his frequent falling. History of Present Illness Consult details Consult date: 01/31/20 Reason for consult: other ( Request inferior vena cava filter) Narrative: the patient is a 59-year-old man who is a heavy drinker and has problems with multiple falls. He has had some injuries from these falls and has been evaluated at [facility] neurology for this. Today no real explanation for the falling has been evident. Cardiology has seen the patient as well as Neurology. It does not seem to be cardiac in nature. Neurology's impression is not yet been given. Probably from 1 of the falls, the patient noted pain in his right foot and ankle. Plain films suggested a possible lateral malleolar nondisplaced fracture. Subsequent CT scan did show a nondisplaced distal tibial fracture. Also noted was some lower leg swelling and venous Doppler was obtained. This showed an isolated posterior tibial vein thrombosis. There was no extension to the proximal deep venous system. Because of his many falls and continuing to fall, patient is a poor candidate for anticoagulation. I was asked to see him for consideration of placement of an inferior vena cava filter. Review of Systems Review of Systems: All systems reviewed & are unremarkable except as noted in HPI and below Constitutional: Constitutional: Denies chills and Denies fever(s) Cardiovascular: Cardiovascular: Denies chest pain, Denies diaphoresis, Denies dyspnea and Denies paroxysmal nocturnal dyspnea Respiratory: Respiratory: Denies chest congestion, Denies cough and Denies dyspnea Integumentary/Breasts: Skin/Breast: Denies lesions and Denies rash Neurologic: Denies Sensory deficit (Neuro) ON LICENSE OF [facility] Past Medical History Medical History (Updated 01/31/20 @ 19:29 by Sean Killian MD) Alcohol abuse Fracture of metatarsal of left foot, closed Frequent falls Laceration of occipital region of scalp Syncope and collapse Surgical History Surgical History History of appendectomy Family History Family History Father Malignant neoplasm of prostate Mother COPD (chronic obstructive pulmonary disease) Other Family history of malign
[2020-01-31] MEDS: LOSARTAN POTASSIUM 100 MG TABLET PO (20:27)
[2020-01-31] MEDS: ACETAMINOPHEN 325 MG TABLET 650 MG PO (22:09)
[2020-02-01] VITALS (13 sets, daily range): BP systolic 161–180; BP diastolic 83–99; PULSE 70–94; RESP 18–20; TEMP 36.4–37.1; O2SAT 87–97
[2020-02-01] MEDS: HYDROcodone/acetaminophen (*CRX) 5-325 MG TABLET 1 TAB PO (02:09)
[2020-02-01 07:08] LABS: Alanine Aminotransferase 44 U/L (4-50); Albumin Level 3.8 g/dL (3.5-5.1); Alkaline Phosphatase 82 U/L (38-126); Anion Gap 7 mmol/L (8-16); Aspartate Amino Transferase 58 U/L (17-59); Bilirubin,Total 1.1 mg/dL (0.2-1.3); Blood Urea Nitrogen 11 mg/dL (9-20); Carbon Dioxide 28 mmol/L (22-30); Chloride 90 mmol/L (98-107); Estimated CRCL calculation 143 ml/min; Estimated Glomerular Filt Rate > 60; Glucose 96 mg/dL (75-110); Potassium 3.1 mmol/L (3.4-5.0); Sodium 125 mmol/L (137-145)
[2020-02-01 07:13] LABS: Hemoglobin 12.2 g/dL (14.0-18.0); Immature Platelet Fraction Pct 6.7 % (0.9-11.2); Mean Corpuscular HGB Conc 35.9 g/dl (32-36); Mean Corpuscular Hemoglobin 35.3 pg (26-34); Mean Corpuscular Volume 98.3 fl (80-100); Mean Platelet Volume 9.7 fl (7.4-10.4); Platelet Count Result 122 k/mm3 (150-375); Red Blood Count 3.46 M/mm3 (4.6-6.20); Red Cell Distribution Width 11.7 % (11.5-14.5); White Blood Count 5.7 K/mm3 (4.5-10.0)
[2020-02-01] MEDS: carvediloL 25 MG TABLET PO ×2 (09:50→20:20)
[2020-02-01] MEDS: busPIRone HCL 5 MG TABLET PO ×3 (09:50→18:13)
[2020-02-01] MEDS: ENOXAPARIN 100 MG/ML SYRINGE SUB-Q ×2 (09:50→20:21)
[2020-02-01] MEDS: POTASSIUM CHLORIDE 20 MEQ TABLET 40 MEQ PO (09:50)
[2020-02-01] MEDS: CITALOPRAM HYDROBROMIDE 20 MG TABLET PO (09:51)
[2020-02-01] MEDS: SILVERGEL (ELTA) 45 ML 1 APPLIC TOPICAL (09:51)
[2020-02-01] MEDS: THERAPEUTIC MULTIVITAMINS/MINERALS TAB (*BKC) 1 TABLET PO (09:51)
[2020-02-01] MEDS: THIAMINE HCL 200 MG/2 ML VIAL 100 MG IV PUSH (09:52)
--- NOTE | 2020-02-01 10:18 | PM.IMPN ---
Progress Note: A&P Assessment and Plan (1) Syncope and collapse: Code(s): R55 - Syncope and collapse Status: Acute Assessment and Plan: Head CT negative. Brain MRI showed normal aging brain. The patient's symptoms are consistent with syncope. Patient reports these episodes typically occur upon standing. He has had multiple falls and has been evaluated by neurology and cardiology. I spoke with his PCP (Dr. Pena) via phone regarding the situation. The patient reports he was told by neurology at [place] that there was nothing that could be done for him. Dr. Pena has not been able to receive reports from that neurology visit and prefers that patient follow with neurology locally, therefore I placed a consult for our neurologists to evaluate him. He has been seen by cardiology and the patient reports Dr. Ramirez felt strongly that this was not cardiac in origin. He has had a Holter monitor and a stress test with no acute findings. When he was evaluated at [place], he was told this may be narcolepsy. Seizures are considered. He does have a history of alcohol abuse. Echo performed with no evidence of significant valvular disease. Head and neck CTA showed normal aging brain with no evidence of aneurysm and 0% stenosis of the proximal ICA. EEG has been ordered and is pending Consult placed to neurology. Recommendations appreciated. Monitor orthostatics. (2) Frequent falls: Code(s): R29.6 - Repeated falls Status: Chronic Assessment and Plan: He has been seen in the ED many times here related to injuries from falls. In September 2019 he was transferred to [facility] after suffering a frontal cephalohematoma to ensure there was no contrecoup subdural hematoma. He reports he was not informed of any brain bleed at that time. Otherwise, he has had several other minor injuries. He was seen by plastics for a forehead wound in December. B12 and folate wnl. TSH mildly low with normal T3 and T4. Seems to be related to syncope as above. He has had 5 head CTs since September 2019 related to falls. PT and OT to evaluate. Recommendations appreciated Neurology consult as noted above. Fall precautions in place (3) Alcohol abuse: Code(s): F10.10 - Alcohol abuse, uncomplicated Status: Chronic Assessment and Plan: Patient reports drinking about 1-2 beers nightly. He reports that he used to be drinking about 5-6 beers but is slowly cutting down. He states that for him, drinking beer is a hobby and he does not feel that it is problematic. He does admit that his drinking has increased a bit since started the pandemic as he has not been working. He notes that he has gone several days without drinking in the past and has never had any symptoms of withdrawal. It is unclear how forthcoming he was with his actual amount of alcohol use. At this time, he does not have any tremors, anxiety, hallucinations, or additional withdrawal symptoms. CIWA score is 2. CIWA protocol is in place Transition to oral thiamine supplementation. Begin folic acid. Ativan as needed for withdrawal we discussed the importance of alcohol cessation, especially given his frequent falls and current issues. (4) Generalized weakness: Code(s): R53.1 - Weakness Status: Acute Assessment and Plan: Seems to be related to above falls with a component of deconditioning as patient has become quite sedentary since the start of the pandemic. PT and OT are following. (5) Acute hyponatremia: Code(s): E87.1 - Hypo-osmolality and hyponatremia Status: Acute Assessment and Plan: On review of prior labs, seems to be ongoing. He reports drinking excess amounts of water. Sodium has remained stable at 125 today. Continue 1200 ml fluid restriction diet Monitor sodium closely (6) DVT (deep venous thrombosis): Code(s): I82.409 - Acute embolism and thrombosis of unspecified deep veins of unspecifi
--- NOTE | 2020-02-01 10:51 | PM.CNOR ---
Assessment and Plan Assessment and plan (1) Right ankle pain: Qualifiers: Chronicity: acute Qualified Code(s): M25.571 - Pain in right ankle and joints of right foot Code(s): M25.571 - Pain in right ankle and joints of right foot Status: Acute (2) Closed fracture of right distal tibia: Qualifiers: Encounter type: initial encounter Fracture morphology: other fracture Qualified Code(s): S82.391A - Other fracture of lower end of right tibia, initial encounter for closed fracture Code(s): S82.301A - Unspecified fracture of lower end of right tibia, initial encounter for closed fracture Status: Acute (3) Right foot pain: Code(s): M79.671 - Pain in right foot Status: Acute Assessment and Plan: 59-year-old male with an acute right tibial plafond fracture. This is nondisplaced. This can be treated in a Cam walker boot with protected weight-bearing using a walker geophysical operator. His right foot will be x-rayed to make sure he does not have a fracture in the first ray. I will follow along while he is in the hospital. Thank you for the consultation. History of Present Illness HPI Consult date: 02/01/20 Consult reason: fracture (Right distal tibia fracture) Chief complaint: Frequent Falls Narrative: 59-year-old male who suffers from frequent falls. This most recent one has left him with a right distal tibia fracture. He is being evaluated for the frequent falls as well. This summary had a fall which resulted in multiple metatarsal fractures on the right side. He apparently had fracture blisters in developed some wound healing issues but [facility]. I have been consulted to address the right ankle injury. Does have a history of bilateral ankle injuries as a teenager but he does not recall the specifics. [facility] Past Medical History Medical History (Updated 02/01/20 @ 11:01 by Richie Paula MD) Alcohol abuse Fracture of metatarsal of left foot, closed Frequent falls Laceration of occipital region of scalp Syncope and collapse Surgical History Surgical History History of appendectomy Family History Family History Father Malignant neoplasm of prostate Mother COPD (chronic obstructive pulmonary disease) Other Family history of malignant neoplasm Social History Social History Social History: Smoking packs per day: 1 Smoking cigarettes per day: 20.0 Years smoked: 20 Smoking pack-years: 20.00 Smoking status: Former smoker Tobacco type: cigarettes Second hand tobacco smoke exposure: No Alcohol intake: current Drinks per week: 49 Substance use: never Substance use type: does not use Gender identity (if verbalized by the patient): Male Spiritual care concerns: No Meds Home Medications and Allergies Home Medications Medication Instructions Recorded Confirmed Type naproxen sodium 220 mg capsule 220 mg PO PRN PRN 09/09/19 01/29/20 History carvedilol 12.5 mg tablet 12.5 mg PO Q12H #180 tablet 11/19/19 01/29/20 Rx citalopram 20 mg tablet 20 mg PO DAILY #90 tablet 12/03/19 01/29/20 Rx buspirone 5 mg tablet 5 mg PO TID #90 tablet 12/10/19 01/29/20 Rx Culturelle 1 cap PO DAILY 01/08/20 01/29/20 History valerian root extract 300 mg PO HS PRN 01/08/20 01/29/20 History multivitamin with minerals 1 tablet PO DAILY #90 tablet 01/09/20 01/29/20 Rx [Multiple Vitamin-Minerals] doxazosin 2 mg PO HS 01/29/20 01/29/20 History losartan 100 mg PO HS 01/29/20 01/29/20 History trazodone 100 mg PO HS 01/29/20 01/29/20 History Allergies Allergy/AdvReac Type Severity Reaction Status Date / Time No Known Allergies Allergy Verified 01/29/20 21:33 Vital Signs Vital Signs - 24 hr 01/31/20 12:00 01/31/20 14:00 01/31/20 16:40 Temperature 98
[2020-02-01] MEDS: LOSARTAN POTASSIUM 100 MG TABLET PO (20:20)
[2020-02-01] MEDS: ACETAMINOPHEN 325 MG TABLET 650 MG PO (22:08)
[2020-02-01] MEDS: LORazepam INJ (*CRX) 2 MG/ML VIAL 1 MG IV PUSH (22:12)
[2020-02-02] VITALS (17 sets, daily range): BP systolic 113–182; BP diastolic 69–97; PULSE 70–94; RESP 16–20; TEMP 36.4–37.4; O2SAT 95–98
--- NOTE | 2020-02-02 01:18 | PC.NURSE ---
Daylight Savings Time For Daylight Savings Time Ending in the Fall - Clocks are moved back. For Daylight Savings Time Beginning in the Spring - Clocks are moved ahead. For [facility], the time of change occurs at 0200 hrs. Time is taken from the senior sql server dba. This entry on the patient's chart recognizes the change in time reflected during documentation. Example: 2 entries for vital signs may be charted for 0200 hrs.
[2020-02-02] MEDS: hydrALAZINE HCL 20 MG/ML VIAL 10 MG IV PUSH (04:56)
[2020-02-02 05:36] LABS: Hematocrit 33.8 % (42.0-52.0); Hemoglobin 11.9 g/dL (14.0-18.0); Immature Platelet Fraction Pct 5.7 % (0.9-11.2); Mean Corpuscular HGB Conc 35.2 g/dl (32-36); Mean Corpuscular Hemoglobin 34.4 pg (26-34); Mean Corpuscular Volume 97.7 fl (80-100); Mean Platelet Volume 9.8 fl (7.4-10.4); Platelet Count Result 130 k/mm3 (150-375); Red Blood Count 3.46 M/mm3 (4.6-6.20); Red Cell Distribution Width 11.7 % (11.5-14.5)
[2020-02-02 06:11] LABS: Anion Gap 7 mmol/L (8-16); Blood Urea Nitrogen 12 mg/dL (9-20); Carbon Dioxide 30 mmol/L (22-30); Chloride 91 mmol/L (98-107); Estimated CRCL calculation 124 ml/min; Estimated Glomerular Filt Rate > 60; Glucose 88 mg/dL (75-110); Sodium 128 mmol/L (137-145)
[2020-02-02] MEDS: POTASSIUM CHLORIDE 20 MEQ TABLET 40 MEQ PO (08:46)
[2020-02-02] MEDS: FOLIC ACID 1 MG TABLET PO (08:47)
[2020-02-02] MEDS: THERAPEUTIC MULTIVITAMINS/MINERALS TAB (*BKC) 1 TABLET PO (08:47)
[2020-02-02] MEDS: ENOXAPARIN 100 MG/ML SYRINGE SUB-Q ×2 (08:47→20:54)
[2020-02-02] MEDS: THIAMINE HCL 100 MG TABLET PO (08:47)
[2020-02-02] MEDS: SILVERGEL (ELTA) 45 ML 1 APPLIC TOPICAL (08:47)
[2020-02-02] MEDS: CITALOPRAM HYDROBROMIDE 20 MG TABLET PO (08:47)
[2020-02-02] MEDS: busPIRone HCL 5 MG TABLET PO ×3 (08:47→18:54)
[2020-02-02] MEDS: carvediloL 25 MG TABLET PO ×2 (08:47→20:53)
[2020-02-02] MEDS: HYDROcodone/acetaminophen (*CRX) 5-325 MG TABLET 1 TAB PO ×2 (09:47→20:55)
--- NOTE | 2020-02-02 14:22 | PM.IMPN ---
Progress Note: A&P Assessment and Plan (1) Syncope and collapse: Code(s): R55 - Syncope and collapse Status: Acute Assessment and Plan: Head CT negative. Brain MRI showed normal aging brain. The patient's symptoms are consistent with syncope. Patient reports these episodes typically occur upon standing. He has had multiple falls and has been evaluated by neurology and cardiology. I spoke with his PCP (Dr. Pena) via phone regarding the situation. The patient reports he was told by neurology at [place] that there was nothing that could be done for him. Dr. Pena has not been able to receive reports from that neurology visit and prefers that patient follow with neurology locally, therefore I placed a consult for our neurologists to evaluate him. He has been seen by cardiology and the patient reports Dr. Ramirez felt strongly that this was not cardiac in origin. He has had a Holter monitor and a stress test with no acute findings. When he was evaluated at [place], he was told this may be narcolepsy. Seizures are considered. He does have a history of alcohol abuse. Echo performed with no evidence of significant valvular disease. Head and neck CTA showed normal aging brain with no evidence of aneurysm and 0% stenosis of the proximal ICA. He is mildly orthostatic which may contribute to symptoms. EEG has been performed and is pending review Consult placed to neurology. Recommendations appreciated. Monitor orthostatics. (2) Frequent falls: Code(s): R29.6 - Repeated falls Status: Chronic Assessment and Plan: He has been seen in the ED many times here related to injuries from falls. In September 2019 he was transferred to [facility] after suffering a frontal cephalohematoma to ensure there was no contrecoup subdural hematoma. He reports he was not informed of any brain bleed at that time. Otherwise, he has had several other minor injuries. He was seen by plastics for a forehead wound in December. B12 and folate wnl. TSH mildly low with normal T3 and T4. Seems to be related to syncope as above. He has had 5 head CTs since September 2019 related to falls. PT and OT to evaluate. Recommendations appreciated Neurology consult as noted above. Fall precautions in place (3) Alcohol abuse: Code(s): F10.10 - Alcohol abuse, uncomplicated Status: Chronic Assessment and Plan: Patient reports drinking about 1-2 beers nightly. He reports that he used to be drinking about 5-6 beers but is slowly cutting down. He states that for him, drinking beer is a hobby and he does not feel that it is problematic. He does admit that his drinking has increased a bit since started the pandemic as he has not been working. He notes that he has gone several days without drinking in the past and has never had any symptoms of withdrawal. It is unclear how forthcoming he was with his actual amount of alcohol use. At this time, he does not have any tremors, anxiety, hallucinations, or additional withdrawal symptoms. CIWA score is 1. CIWA protocol is in place Continue oral thiamine and folic acid supplementation. Ativan as needed for withdrawal we discussed the importance of alcohol cessation, especially given his frequent falls and current issues. (4) Generalized weakness: Code(s): R53.1 - Weakness Status: Acute Assessment and Plan: Seems to be related to above falls with a component of deconditioning as patient has become quite sedentary since the start of the pandemic. PT and OT are following. He has requested continued therapy and SNF placement. Care coordination is following for possible placement. (5) Acute hyponatremia: Code(s): E87.1 - Hypo-osmolality and hyponatremia Status: Acute Assessment and Plan: On review of prior labs, seems to be ongoing issue. He reports drinking excess amounts of water. Sodium increased to 128 today. Continue 1200 ml fluid restrict
[2020-02-02] MEDS: POTASSIUM CHLORIDE 20 MEQ TABLET PO (14:57)
[2020-02-02] MEDS: LOSARTAN POTASSIUM 100 MG TABLET PO (20:55)
[2020-02-03] VITALS (17 sets, daily range): BP systolic 111–182; BP diastolic 67–79; PULSE 71–89; RESP 18–20; TEMP 36.6–37; O2SAT 95–98
[2020-02-03 05:48] LABS: Hematocrit 34.1 % (42.0-52.0); Hemoglobin 11.9 g/dL (14.0-18.0); Immature Platelet Fraction Pct 5.4 % (0.9-11.2); Mean Corpuscular HGB Conc 34.9 g/dl (32-36); Mean Corpuscular Hemoglobin 34.4 pg (26-34); Mean Corpuscular Volume 98.6 fl (80-100); Platelet Count Result 144 k/mm3 (150-375); Red Blood Count 3.46 M/mm3 (4.6-6.20); Red Cell Distribution Width 11.8 % (11.5-14.5); White Blood Count 4.2 K/mm3 (4.5-10.0)
[2020-02-03 05:59] LABS: Anion Gap 7 mmol/L (8-16); Blood Urea Nitrogen 20 mg/dL (9-20); Calcium 9.1 mg/dL (8.4-10.2); Carbon Dioxide 28 mmol/L (22-30); Chloride 95 mmol/L (98-107); Estimated CRCL calculation 110 ml/min; Estimated Glomerular Filt Rate > 60; Glucose 91 mg/dL (75-110); Potassium 3.4 mmol/L (3.4-5.0); Sodium 130 mmol/L (137-145)
[2020-02-03] MEDS: ENOXAPARIN 100 MG/ML SYRINGE SUB-Q ×2 (09:58→20:55)
[2020-02-03] MEDS: busPIRone HCL 5 MG TABLET PO ×3 (09:59→16:33)
[2020-02-03] MEDS: THIAMINE HCL 100 MG TABLET PO (09:59)
[2020-02-03] MEDS: carvediloL 25 MG TABLET PO ×2 (09:59→21:22)
[2020-02-03] MEDS: THERAPEUTIC MULTIVITAMINS/MINERALS TAB (*BKC) 1 TABLET PO (10:00)
[2020-02-03] MEDS: FOLIC ACID 1 MG TABLET PO (10:00)
[2020-02-03] MEDS: SILVERGEL (ELTA) 45 ML 1 APPLIC TOPICAL (10:00)
[2020-02-03] MEDS: CITALOPRAM HYDROBROMIDE 20 MG TABLET PO (11:22)
--- NOTE | 2020-02-03 11:34 | P.NEURO_ITS ---
Neurology EEG Report General Information Date of Study: 01/31/20 TEST eeg DIAGNOSIS syncope with frequent falls CONDITION OF RECORDING awake drowsy and sleep EEG NUMBER [id number] CLINICAL HISTORY patient reported, for about one year he has been falling with no warning signs. Denies any loss of consciousness. EEG DESCRIPTION Basic resting occipital frequency consist of moderate amount of fairly well- organized low voltage to medium voltage 8 to 9 hertz per second alpha admixed with low-voltage to medium voltage 6 to 7 hertz theta. Multiple muscle artifacts are seen throughout the tracing. bilateral symmetrical sleep activity seen during sleep .hyperventilation not done .photic stimulation not done.non Paroxysmal nonfocal nonlateralizing IMPRESSION impression no significant abnormality is noted but considering excessive amount of theta activity clinical correlation recommended as these abnormalities could be suggestive of underlying organic or metabolic encephalopathy
--- NOTE | 2020-02-03 14:01 | PM.IMPN ---
Progress Note: A&P Assessment and Plan (1) Transaminitis: Code(s): R74.01 - Elevation of levels of liver transaminase levels Status: Chronic Assessment and Plan: LFT'S currently in the normal range. (2) Acute hyponatremia: Code(s): E87.1 - Hypo-osmolality and hyponatremia Status: Acute Assessment and Plan: Trending up Continue to monitor Suspect poor oral intake. (3) Vitamin B12 deficiency: Code(s): E53.8 - Deficiency of other specified B group vitamins Status: Acute Assessment and Plan: Continue Vit B12 supplement. (4) Nausea & vomiting: Code(s): R11.2 - Nausea with vomiting, unspecified Status: Acute Assessment and Plan: Resolved Tolerating po (5) Generalized weakness: Code(s): R53.1 - Weakness Status: Acute Assessment and Plan: PT/OT (6) Anxiety: Code(s): F41.9 - Anxiety disorder, unspecified Status: Acute Assessment and Plan: Continue home meds. (7) Fall: Code(s): W19.XXXA - Unspecified fall, initial encounter Status: Chronic Assessment and Plan: Extensive work up Non revealing (8) Alcohol abuse: Code(s): F10.10 - Alcohol abuse, uncomplicated Status: Chronic Assessment and Plan: ETOH level upon presentation was bellow 10 Patient states that he drinks 1-2 beers every night down form 5-6 (9) Frequent falls: Code(s): R29.6 - Repeated falls Status: Chronic Assessment and Plan: Recurrent falls MRI reviewed CT reviewed (10) Syncope and collapse: Code(s): R55 - Syncope and collapse Status: Acute Assessment and Plan: ECHO reviewed Unclear etiology although patient is known to have ETOH abuse (11) Chronic insomnia: Code(s): F51.04 - Psychophysiologic insomnia Status: Acute Assessment and Plan: Narcolepsy possible Supportive care Subjective Date/time seen: 02/03/20 14:01 Patient states that his balance today is not as good as he wanted it. Had breakfast Review of Systems Review of Systems: Narrative: Recurrent falls at home upon standing with syncope. Constitutional: Comments: no fevers, no rigors, no chills. Eyes: Comments: no vision changes. ENT: Comments: no ear ache, no throat pain, no nasal congestion. Cardiovascular: Comments: no chest pain, no leg swelling, no pnd, no orthopnea Respiratory: Comments: no cough, no sputum production, no sob. Gastrointestinal: Comments: no n/v/abdominal pain Musculoskeletal: Comments: R shoulder cramps Integumentary/Breasts: Comments: no rashes. Neurologic: Comments: no sensory motor deficit. Endocrine: Comments: no heat or cold intolerance. Hematologic/Lymphatic: Comments: no LAP. Exam Narrative: Exam Narrative: Well appearing, in bed. Const: General: cooperative, healthy appearing, comfortable, no acute distress, well developed, alert, awake, Physically active and well groomed Nutritional Appearance: average body habitus Limitations: no limitations HENMT: Head: other (Multiple old scars on forehead.) Ears: hearing grossly normal bilaterally General nose exam: Normal external nose present Face and sinus: normal facial exam Eyes: General: appearance normal, both eyes and all related structures Eyelids: eyelids normal Conjunctivae: conjunctivae normal Sclera: sclerae normal Pupils: Equal, round and reactive pupils present EOM: EOMs intact bilaterally Neck: Neck: normal visual inspection, no lymphadenopathy and no JVD Lymphatic: no lymphadenopathy noted Resp: Effort & Inspection: normal respiratory effort Auscultation: clear to auscultation bilaterally Cardio: Jugular venous distension: no JVD Rate: regular rate Rhythm: regular rhythm Heart sounds: S1 normal heart sound present and S2 normal heart sound present Peripheral pulses: Peripheral pulses 2+ throughout GI: Inspection: normal to inspection GI Palp: Yes S
[2020-02-03 19:58] LABS: SARS-CoV-2 RNA PCR Negative
[2020-02-03] MEDS: LOSARTAN POTASSIUM 100 MG TABLET PO (21:21)
[2020-02-04] VITALS (10 sets, daily range): BP systolic 144–182; BP diastolic 54–91; PULSE 64–88; RESP 16–20; TEMP 36.6–37; O2SAT 96–98
[2020-02-04] MEDS: hydrALAZINE HCL 20 MG/ML VIAL 10 MG IV PUSH (00:10)
[2020-02-04] MEDS: ACETAMINOPHEN 325 MG TABLET 650 MG PO (00:15)
[2020-02-04] MEDS: HYDROcodone/acetaminophen (*CRX) 5-325 MG TABLET 1 TAB PO (02:55)
[2020-02-04 08:19] LABS: Hematocrit 35.5 % (42.0-52.0); Hemoglobin 12.2 g/dL (14.0-18.0); Mean Corpuscular HGB Conc 34.4 g/dl (32-36); Mean Corpuscular Hemoglobin 34.4 pg (26-34); Mean Platelet Volume 9.9 fl (7.4-10.4); Platelet Count Result 161 k/mm3 (150-375); Red Blood Count 3.55 M/mm3 (4.6-6.20); Red Cell Distribution Width 11.9 % (11.5-14.5); White Blood Count 3.7 K/mm3 (4.5-10.0)
[2020-02-04 08:49] LABS: Alanine Aminotransferase 86 U/L (4-50); Alkaline Phosphatase 79 U/L (38-126); Anion Gap 12 mmol/L (8-16); Aspartate Amino Transferase 73 U/L (17-59); Bilirubin,Total 0.9 mg/dL (0.2-1.3); Blood Urea Nitrogen 18 mg/dL (9-20); Calcium 9.3 mg/dL (8.4-10.2); Carbon Dioxide 25 mmol/L (22-30); Chloride 97 mmol/L (98-107); Estimated CRCL calculation 110 ml/min; Estimated Glomerular Filt Rate > 60; Glucose 100 mg/dL (75-110); Potassium 3.3 mmol/L (3.4-5.0); Sodium 134 mmol/L (137-145)
[2020-02-04] MEDS: FOLIC ACID 1 MG TABLET PO (09:48)
[2020-02-04] MEDS: busPIRone HCL 5 MG TABLET PO ×2 (09:48→13:49)
[2020-02-04] MEDS: CITALOPRAM HYDROBROMIDE 20 MG TABLET PO (09:48)
[2020-02-04] MEDS: ENOXAPARIN 100 MG/ML SYRINGE SUB-Q (09:48)
[2020-02-04] MEDS: THIAMINE HCL 100 MG TABLET PO (09:49)
[2020-02-04] MEDS: THERAPEUTIC MULTIVITAMINS/MINERALS TAB (*BKC) 1 TABLET PO (09:49)
[2020-02-04] MEDS: SILVERGEL (ELTA) 45 ML 1 APPLIC TOPICAL (09:50)
[2020-02-04] MEDS: carvediloL 25 MG TABLET PO (09:50)
--- NOTE | 2020-02-04 10:21 | PM.DS ---
DS: Admitting Diagnosis Admitting Diagnosis Admitting Diagnosis: Frequent Falls DS: Discharge Diagnosis Discharge Diagnosis (1) Syncope and collapse: Code(s): R55 - Syncope and collapse Status: Acute Assessment and Plan: ECHO reviewed. Unclear etiology although patient is known to have ETOH abuse. Work up grossly unremarkable. Telemetry F/u with PCP as outpatient. Will defer further management/work up such as heart monitor to PCP (2) Frequent falls: Code(s): R29.6 - Repeated falls Status: Chronic Assessment and Plan: Recurrent falls. MRI and CT reviewed - grossly unremarkable. Patient states he has improved. Possibly due to hyponatremia which is improving. Pt/OT following D/c today to [facility] (3) Acute hyponatremia: Code(s): E87.1 - Hypo-osmolality and hyponatremia Status: Acute Assessment and Plan: Trending up; 134 today. Suspect due to poor oral intake and/or ETOH abuse CMP in 1 week Continue to monitor (4) Deep vein thrombosis (DVT) of calf muscle vein of right lower extremity: Code(s): I82.461 - Acute embolism and thrombosis of right calf muscular vein Status: Acute Assessment and Plan: Distal, right posterior tibial. Dr. Killian consulted for possible IVC filter and discussed options with patients; recommended a/c during stay, then repeating imaging in 1-2 weeks to see if this has propagated. Will order Venous Doppler in 2 weeks F/u with PCP for further care d/c to [facility] (5) Transaminitis: Code(s): R74.01 - Elevation of levels of liver transaminase levels Status: Chronic Assessment and Plan: LFT's wax/wane - mildly elevated today. Hx of hepatic steatosis noted on RUQ US earlier this month; likely due to alcohol abuse. repeat CMP in 1 week (6) Vitamin B12 deficiency: Code(s): E53.8 - Deficiency of other specified B group vitamins Status: Acute Assessment and Plan: Continue Vit B12 supplement. (7) Nausea & vomiting: Code(s): R11.2 - Nausea with vomiting, unspecified Status: Acute Assessment and Plan: Resolved. Tolerating po (8) Generalized weakness: Code(s): R53.1 - Weakness Status: Acute Assessment and Plan: Improved. ETOH abuse vs hyponatremia or combination PT/OT SNF (9) Anxiety: Code(s): F41.9 - Anxiety disorder, unspecified Status: Acute Assessment and Plan: Continue home meds. (10) Fall: Code(s): W19.XXXA - Unspecified fall, initial encounter Status: Chronic Assessment and Plan: Extensive work up Non revealing (11) Alcohol abuse: Code(s): F10.10 - Alcohol abuse, uncomplicated Status: Chronic Assessment and Plan: ETOH level not obtained on arrival. Patient states that he drinks 1-2 beers every night down form 5-6 Alcohol cessation (12) Chronic insomnia: Code(s): F51.04 - Psychophysiologic insomnia Status: Acute Assessment and Plan: Narcolepsy possible Supportive care F/u with PCP (13) Thyroid nodule: Code(s): E04.1 - Nontoxic single thyroid nodule Status: Acute Assessment and Plan: Noted on head/neck CTA. Recommended Thyroid US as follow up US ordered as outpatient F/u with PCP DS: Summary Hospital Course Reason for hospitalization: Frequent Falls, generalized weakness, DVT, right closed fracture of distal tibia Hospital Course: Patient is a 59 yo
[2020-02-04] MEDS: POTASSIUM CHLORIDE 20 MEQ TABLET 60 MEQ PO (12:19)
--- NOTE | 2020-02-04 12:52 | PC.NURSE ---
Patient has a cam/walker boot and will have his friend deliver it to [employer] in [place]. Discussed with [employer] and they verified that the cam/walker boot is not specific to right or left foot.
== END 2020-02-04 14:35 | DRG 312 ==
LOC: ANHED 20:05 → ANH2MED 20:22
PROVIDERS: Internal Medicine; Physician Assistant; Admitting Provider Family Medicine; Emergency Provider Family Medicine; PCP Family Medicine; Visit Provider Physician Assistant
DX: R55 Syncope and collapse (principal); E87.1 Hypo-osmolality and hyponatremia; I82.441 Acute embolism and thrombosis of right tibial vein; Z20.828 Contact with and (suspected) exposure to other viral communicable diseases; Z23 Encounter for immunization; R29.6 Repeated falls; F10.10 Alcohol abuse, uncomplicated; K70.9 Alcoholic liver disease, unspecified; R53.81 Other malaise; R74.01 Elevation of levels of liver transaminase levels; I10 Essential (primary) hypertension; C61 Malignant neoplasm of prostate; M25.571 Pain in right ankle and joints of right foot; E53.8 Deficiency of other specified B group vitamins; E04.1 Nontoxic single thyroid nodule; Z87.891 Personal history of nicotine dependence
CPT/HCPCS: 36415; 70450; 70496; 70498; 70553; 73600; 73630; 73700; 80048; 80053; 81001; 82570; 82607; 82746; 83735; 84300; 84439; 84443; 84480; 84484; 85025; 85027; 85055; 87635; 90471; 90653; 93005; 93970; 95816; 96361; 96374; 96375; 97110; 97116; 97161; 97165; 97535; 99285; A9270; A9577; C8929; C9803; G0008; G0378; J0360; J1650; J2060; J2405; J3411; J7030; Q9957; Q9967; U0003

== ENCOUNTER 2020-02-12 13:23 | Outpatient (CLI) | payer OTHER, SELFPAY ==
[2020-02-12 13:35] LABS: Hematocrit 37.1 % (42.0-52.0); Hemoglobin 12.2 g/dL (14.0-18.0); Mean Corpuscular HGB Conc 32.9 g/dl (32-36); Mean Corpuscular Hemoglobin 33.8 pg (26-34); Mean Corpuscular Volume 102.8 fl (80-100); Mean Platelet Volume 9.1 fl (7.4-10.4); Platelet Count Result 394 k/mm3 (150-375); Red Blood Count 3.61 M/mm3 (4.6-6.20); Red Cell Distribution Width 11.9 % (11.5-14.5); White Blood Count 7.2 K/mm3 (4.5-10.0)
[2020-02-12 13:47] LABS: Anion Gap 5 mmol/L (8-16); Blood Urea Nitrogen 11 mg/dL (9-20); Calcium 9.1 mg/dL (8.4-10.2); Carbon Dioxide 32 mmol/L (22-30); Chloride 100 mmol/L (98-107); Estimated Glomerular Filt Rate > 60; Glucose 100 mg/dL (75-110); Potassium 4.4 mmol/L (3.4-5.0); Sodium 137 mmol/L (137-145)
== END 2020-02-12 13:24 | disposition home or self-care (01) ==
LOC: ANHLAB 13:24
PROVIDERS: PCP Family Medicine; Visit Provider Physician Assistant
DX: D72.819 Decreased white blood cell count, unspecified (principal); E87.1 Hypo-osmolality and hyponatremia
CPT/HCPCS: 36415; 80048; 85027

== ENCOUNTER 2020-03-16 18:11 | Inpatient (IN) | payer OTHER, SELFPAY ==
--- NOTE | ~2020-03-16 | CT_ITS ---
EXAMINATION: CT foot LT wo con DATE: 03/18/2020 09:06 INDICATION: Left foot swelling and mass. TECHNIQUE: Computed tomography (CT) of the left foot was performed without intravenous contrast. Auto mated exposure control and iterative reconstruction technique were employed. The dose-length product was 427.79 mGy-cm. COMPARISON: Left foot radiographs 11/19/2019, 05/16/18 FINDINGS: There is chronic heterotopic ossification distal to medial malleolus. There is a healing c omminuted intra-articular fracture of base of second metatarsal with malunion. The main distal fractu re fragment demonstrates 2 mm lateral displacement and 4 mm dorsal displacement. There are healed fra cture deformities at the articular surfaces at the third, fourth, and fifth tarsometatarsal joints in cluding an impaction deformity of the articular surface of cuboid laterally. There is moderate to sev ere osteoarthritis of the Lisfranc joints. There is an old healed fracture of first proximal phalanx. There is moderate ankle joint osteoarthritis. Osteopenia is noted. There are enthesophytes at the po sterior and plantar aspects of calcaneal tuberosity. There is moderate to severe fatty atrophy throug hout the foot. There is diffuse subcutaneous in the edema in the foot, worst in the dorsal forefoot. IMPRESSION: 1. 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 Reviewed, dictated and finalized at location A. UP MECH[employer]IC [employer]ATING MACHINES
--- NOTE | ~2020-03-16 | CT_ITS ---
EXAMINATION: CTA chest PE protocol EXAM DATE: 03/16/2020 19:45 INDICATION: dyspnea, DVT. TECHNIQUE: Spiral CTA of the chest (pulmonary arteries) was performed with 100 cc Omnipaque 350 intr avenous contrast injection. Images were acquired during the pulmonary arterial phase. Coronal maxi mum intensity projection 3D-reconstructions were created by the technologist on dedicated workstation . Axial, coronal and sagittal reformatted images were reviewed. The dose-length product (DLP) for t his examination was 1055.58 mGy-cm. The exposure was tailored according to patient size (auto mA ex posure control), and iterative reconstruction (ASIR) was used as additional dose reduction technique. There is no prior study for comparison. FINDINGS: There are no pulmonary emboli in the 1st through 3rd order (central and interlobar) pulmon partha arteries. Some loss of attenuation in the segmental pulmonary arteries due to respiratory motion , but no intraluminal filling defects suspected. No thoracic aortic dissection. Small amount of ba silar groundglass opacities appearance most consistent with subsegmental atelectasis There are no pl eural or pericardial effusions. Tracheobronchial tree is patent. There is no mediastinal, hilar o r axillary lymphadenopathy. There is no pneumothorax. Heart normal in size. No evidence of jeannette nary arterial calcification. There is hepatic steatosis. There is thoracic spondylosis without oste oblastic or osteolytic lesions identified. Diffuse idiopathic skeletal hyperostosis versus ankylosing spondylitis. IMPRESSION: 1. Limited segmental evaluation, but no pulmonary emboli are suspected. 2. Mild basilar groundglass density most likely subsegmental atelectasis. 3. DISH versus ankylosing spondylitis. 4. Hepatic steatosis. Reviewed, dictated and finalized at location A. PTION CLERK
--- NOTE | ~2020-03-16 | XR_ITS ---
EXAMINATION: XR chest 1V portable EXAM DATE: 03/16/2020 18:40 INDICATION: COVID exposure, shortness of breath nausea vomiting weakness, body aches. Symptoms one we ek. TECHNIQUE: Portable AP frontal chest x-ray was obtained. Comparison is made to prior examination from 01/07/2020. FINDINGS: No definite acute airspace disease or significant interval change compared to prior study. There are multiple old left-sided rib fractures. No pneumothorax or pleural effusion. Mild cardiomega ly. IMPRESSION: 1. No definite acute airspace disease. Reviewed, dictated and finalized at location A. LE ERP DEVELOPER
--- NOTE | 2020-03-16 18:15 | ECG_ITS ---
Measurements Intervals [place] Rate: 105 P: 27 DC: 189 QRS: 22 QRSD: 102 T: 32 QT: 351 QTc: 464 Interpretive Statements SINUS TACHYCARDIA POSSIBLE LEFT ATRIAL ENLARGEMENT INCOMPLETE RIGHT BUNDLE BRANCH BLOCK BORDERLINE ECG Electronically Signed On 03-17-2020 7:01:14 IMMIGRATION PATROL INSPECTOR by Kevon Carlisle D.O.
[2020-03-16 18:19] VITALS: BP 199/106; PULSE 108; RESP 18; TEMP 36.9; O2SAT 99
--- NOTE | 2020-03-16 18:28 | ED.GENADULT ---
HPI - General Adult General Chief complaint: Shortness of Breath/Dyspnea Stated complaint: deneentracee covid and influenza test, swollen feet. Time Seen by Provider: 03/16/20 18:20 Source: RN notes reviewed History of Present Illness HPI narrative: Patient presents emergency department from home for shortness of breath. He states that symptoms been ongoing for the past 3 weeks with shortness of breath weakness and body aches. States he was exposed to someone with Covid on February 18 and spoke with his physician today and was recommended come to the ED for further evaluation. Patient also states he had nausea vomiting today has been unable to keep anything down. He denies any abdominal pain patient has any fevers or chills chest pain abdominal painor any other symptoms patient does state he drinks approximately 4-5 beers a day Related Data Home Medications Medication Instructions Recorded Confirmed Culturelle 1 cap PO DAILY 01/08/20 01/29/20 doxazosin 2 mg PO HS 01/29/20 01/29/20 losartan 100 mg PO HS 01/29/20 01/29/20 Allergies Allergy/AdvReac Type Severity Reaction Status Date / Time No Known Allergies Allergy Verified 02/12/20 13:47 Review of Systems Review of Systems: Narrative: Gen.: Denies fevers or chills reports generalized body aches ENT: Denies congestion Respiratory: Reports shortness of breath denies cough CV: Denies chest pain or palpitations GI: Denies abdominal pain or diarrhea reports nausea vomiting denies burning, urgency, frequency or hematuria Musculoskeletal: Denies back pain or muscle pain Neuro: Denies numbness, tingling, reports weakness Skin: Denies rash Except as documented, all other systems reviewed and negative [facility] Past Medical History Medical History (Updated 03/16/20 @ 23:11 by Kenny Doss DO) Alcohol abuse Fracture of metatarsal of left foot, closed Frequent falls Laceration of occipital region of scalp Syncope and collapse Surgical History Surgical History History of appendectomy Family History Family History Father Malignant neoplasm of prostate Mother COPD (chronic obstructive pulmonary disease) Other Family history of malignant neoplasm Social History Social History Social History: Smoking packs per day: 1 Smoking cigarettes per day: 20.0 Years smoked: 20 Smoking pack-years: 20.00 Smoking status: Former smoker Tobacco type: cigarettes Second hand tobacco smoke exposure: No Alcohol intake: current Drinks per week: 49 Substance use: never Substance use type: does not use Gender identity (if verbalized by the patient): Male Spiritual care concerns: No Exam Narrative: Exam Narrative: APPEARANCE: No acute distress, nontoxic, resting in bed EYES: EOMI HEENT: Normocephalic, atraumatic, OMM RESPIRATORY: No respiratory distress Clear to auscultation bilaterally with no rhonchi wheezing or rales. CARDIOVASCULAR: Regular rate and rhythm without murmurs rubs or gallops. ABDOMINAL: Soft, nontender, nondistended, no rebound or guarding MUSCULOSKELETAl: Moves all extremities. No clubbing, cyanosis or edema. NEURO: Awake and alert. Following commands, speech normal, no focal deficits SKIN:: Warm, dry. No rashes lesions or abrasions PSYCHIATRIC: Normal affect/mood, Course Course Emergency Course: Discussed with patient unable to keep any of his meds down today. Hydralazine given for blood pressure control. Of note the patient is remained persistently tachycardic I discussed with the patient that states while he still feels nauseous he does not feel anxious or jittery I will give Ativan at this time his alcohol is less than 10 and patient does have a history of alcohol use on a daily basis Discussed with Dr. doss presentation and work-up came to see the
[2020-03-16 18:40] LABS: Basophils Percent Auto 0.3 % (0.2-1.2); Eosinophils Percent Auto 0.1 % (0-4.4); Hematocrit 40.7 % (42.0-52.0); Hemoglobin 14.5 g/dL (14.0-18.0); Immature Granulocyte Absolute 0.04 K/mm3 (0.00-0.031); Immature Granulocyte Percent A 0.5 % (0-0.5); Lymphocytes Absolute Auto 0.65 K/mm3 (0.9-3.2); Lymphocytes Percent Auto 8.5 % (18.3-44.2); Mean Corpuscular HGB Conc 35.6 g/dl (32-36); Mean Corpuscular Hemoglobin 33.2 pg (26-34); Mean Corpuscular Volume 93.1 fl (80-100); Mean Platelet Volume 9.4 fl (7.4-10.4); Monocytes Absolute Auto 0.8 K/mm3 (0.1-0.6); Monocytes Percent Auto 10.1 % (2.6-8.5); Neutrophils Absolute Auto 6.1 K/mm3 (1.3-6.7); Neutrophils Percent Auto 80.5 % (45.5-73.1); Platelet Count Result 133 k/mm3 (150-375); Red Blood Count 4.37 M/mm3 (4.6-6.20); Red Cell Distribution Width 14.4 % (11.5-14.5); White Blood Count 7.6 K/mm3 (4.5-10.0)
[2020-03-16 18:48] LABS: INR 0.9; Prothrombin Time 12.9 Seconds (11.1-14.7)
[2020-03-16 18:49] LABS: Partial Thromboplastin Time 26.3 SECONDS (22.3-36.8)
[2020-03-16 18:54] LABS: Albumin Level 4.7 g/dL (3.5-5.1); Alkaline Phosphatase 155 U/L (38-126); Anion Gap 14 mmol/L (8-16); Aspartate Amino Transferase 156 U/L (17-59); Bilirubin,Total 2.3 mg/dL (0.2-1.3); Blood Urea Nitrogen 5 mg/dL (9-20); Calcium 10.1 mg/dL (8.4-10.2); Carbon Dioxide 28 mmol/L (22-30); Chloride 90 mmol/L (98-107); Estimated CRCL calculation 129 ml/min; Estimated Glomerular Filt Rate > 60; Glucose 153 mg/dL (75-110); Potassium 3.8 mmol/L (3.4-5.0); Sodium 132 mmol/L (137-145)
[2020-03-16 19:04] LABS: Alanine Aminotransferase 84 U/L (4-50)
[2020-03-16 19:06] LABS: NT Pro B Type Natriuretic Pept 144 PG/ML (5-100); Troponin I 0.024 ng/mL (0.000-0.034)
[2020-03-16 20:13] VITALS: BP 230/113; PULSE 107; RESP 18; O2SAT 99
[2020-03-16] MEDS: ONDANSETRON INJ 4 MG/2 ML VIAL IV PUSH (20:23)
[2020-03-16] MEDS: hydrALAZINE HCL 20 MG/ML VIAL 10 MG IV PUSH (20:23)
[2020-03-16 20:57] VITALS: BP 192/86; PULSE 125; RESP 20; O2SAT 98
[2020-03-16] MEDS: SODIUM CHLORIDE 0.9% IV 1,000 ML 999 ML IV CONT (20:57)
[2020-03-16 21:28] LABS: Ethanol < 10 mg/dL (<10)
[2020-03-16] MEDS: LORazepam INJ (*CRX) 2 MG/ML VIAL 0.5 MG IV PUSH (21:28)
[2020-03-16 21:29] VITALS: BP 179/90; PULSE 88
--- NOTE | 2020-03-16 21:54 | ECG_ITS ---
Measurements Intervals [place] Rate: 118 P: -21 NV: 140 QRS: 19 QRSD: 102 T: 24 QT: 342 QTc: 481 Interpretive Statements SINUS TACHYCARDIA LEFT ATRIAL ENLARGEMENT INCOMPLETE RIGHT BUNDLE BRANCH BLOCK BASELINE ARTIFACT- I, III, AVL, AVF ABNORMAL ECG Electronically Signed On 03-17-2020 7:16:02 PACKING FLOOR WORKER by Kevon Carlisle D.O.
[2020-03-16 22:21] LABS: Troponin I 0.039 ng/mL (0.000-0.034)
[2020-03-16 22:58] VITALS: PULSE 120
[2020-03-16] MEDS: carvediloL 12.5 MG TABLET PO (22:58)
[2020-03-16 22:59] VITALS: BP 190/90; PULSE 120; RESP 18; O2SAT 99
--- NOTE | 2020-03-16 23:00 | PM.IMHP ---
H&P: HPI History of Present Illness Date/Time: 03/16/20 23:00 Chief complaint: elevated troponin, nausea and vomiting, Narrative: Cynthia Maldonado is a 59 year old male with past medical history anxiety/depression, hypertension, history of prostate cancer, alcohol abuse who presents to ED with complaints of recurrent falls at home. Lives alone in drinks 4-5 beers daily. Does not leave the house has had no COVID 19 exposures that he knows of. He uses [employer] to get food delivered. Patient is unemployed. Patient's symptoms of diarrhea and weakness and falls are similar to his previous admissions. No new presenting symptoms. Was recently admitted here 01/28-02/03 for similar issues with falling and weakness with extensive workup. Neurology was consulted CT head and CTA have been nonconclusive. Orthostatics negative. EEG negative. Apparently he was told he may have narcolepsy when evaluated at [place]. In previous notes it appears there was nothing more they could have done for him from [place]. Cardiology was consulted who believed his issues were not cardiac in nature. He had a stress test and Holter monitor that was negative. PCP is Dr. Pena. He has had multiple CTs >5 since September 2019 for recurrent falls. Carotid Doppler October 2019 showed less than 50% stenosis bilaterally. In the ED: EKG shows sinus tachycardia. Chest x-ray negative, CTA did not show any PE, did show mild basilar ground-glass densities. Patient undergoing COVID-19 swab. Review of Systems Review of Systems: Narrative: Constitutional: No Fever, No Chills, No Night Sweats, No Fatigue, No Malaise ENT/Mouth: No Hearing Changes, No Ear Pain, No Nasal Congestion, No Sinus Pain, No Hoarseness, No sore throat, No Rhinorrhea, No Swallowing Difficulty Eyes: No Eye Pain, No Redness, No Vision Changes Cardiovascular: No Chest Pain, No Palpitations, No Dyspnea on Exertion, No Orthopnea, No Claudication, No Edema Respiratory: No Cough, No Sputum, No Wheezing, No Shortness of Breath Gastrointestinal: No Nausea, No Vomiting, No Diarrhea, No Constipation, No Abdominal Pain, No Heartburn, No Hematochezia, No Melena Genitourinary: No Dysuria, No Urinary Frequency, No Hematuria, No Urinary Incontinence, No Urgency Musculoskeletal: No Arthralgias, No Myalgias, No Joint Swelling, No Joint Stiffness, No Back Pain Skin: No Skin Lesions, No Pruritis, No Hair Changes Neuro: No Weakness, No Numbness, No Paresthesias, No Loss of Consciousness, No Syncope, No Dizziness, No Headache Psych: No Anxiety/Panic, No Depression, No Insomnia Heme: No Bruising, No Bleeding Lymph: No Adenopathy Endocrine: No Polyuria, No Polydipsia, No Temperature Intolerance [facility] Past Medical History Medical History (Updated 03/17/20 @ 04:24 by Kenny Herrera DO) Alcohol abuse Fracture of metatarsal of left foot, closed Frequent falls Laceration of occipital region of scalp Syncope and collapse Surgical History Surgical History History of appendectomy Family History Family History Father Malignant neoplasm of prostate Mother COPD (chronic obstructive pulmonary disease) Other Family history of malignant neoplasm Social History Social History Social History: Smoking packs per day: 1 Smoking cigarettes per day: 20.0 Years smoked: 20 Smoking pack-years: 20.00 Smoking status: Former smoker Tobacco type: cigarettes Second hand tobacco smoke exposure: No Alcohol intake: current Drinks per week: 35 Substance use: never Substance use type: does not use Gender identity (if verbalized by the patient): Male Spiritual care concerns: No Meds Home Medications and Allergies Home Medications Medication Instructions Recorded Confirmed Type citalopram 20 mg tablet 20 mg PO
[2020-03-17] VITALS (18 sets, daily range): BP systolic 140–155; BP diastolic 66–89; PULSE 72–106; RESP 16–20; TEMP 36.4–37.1; O2SAT 94–98; BMI 31.4
--- NOTE | 2020-03-17 01:05 | ADMGEN ---
This patient, Cynthia Maldonado, was admitted to IMU Room 231-01. Patient/family oriented to hospital policies and general routines including ID bracelet, bed and alarms, visiting hours, pain management, procedures, bathroom and other care routines, personal items, smoking policy, room service/diet, and visiting hours. Information on how to activate the Rapid Response Team has been discussed. Patient/Family are encouraged to report perceived risks to care and to ask questions if they do not understand what they are told or what they should do. Pt arrived at approximately 1 am, report received from Kody MEDRANO.
[2020-03-17 02:40] LABS: Basophils Percent Auto 0.5 % (0.2-1.2); Hematocrit 32.8 % (42.0-52.0); Hemoglobin 11.7 g/dL (14.0-18.0); Immature Granulocyte Absolute 0.01 K/mm3 (0.00-0.031); Immature Granulocyte Percent A 0.2 % (0-0.5); Immature Platelet Fraction Pct 4.5 % (0.9-11.2); Lymphocytes Absolute Auto 0.73 K/mm3 (0.9-3.2); Lymphocytes Percent Auto 13.2 % (18.3-44.2); Mean Corpuscular HGB Conc 35.7 g/dl (32-36); Mean Corpuscular Hemoglobin 32.4 pg (26-34); Mean Corpuscular Volume 90.9 fl (80-100); Mean Platelet Volume 9.4 fl (7.4-10.4); Monocytes Absolute Auto 0.9 K/mm3 (0.1-0.6); Monocytes Percent Auto 16.7 % (2.6-8.5); Neutrophils Absolute Auto 3.8 K/mm3 (1.3-6.7); Neutrophils Percent Auto 69.4 % (45.5-73.1); Platelet Count Result 128 k/mm3 (150-375); Red Blood Count 3.61 M/mm3 (4.6-6.20); Red Cell Distribution Width 14.6 % (11.5-14.5); White Blood Count 5.5 K/mm3 (4.5-10.0)
[2020-03-17 02:53] LABS: Anion Gap 6 mmol/L (8-16); Blood Urea Nitrogen 5 mg/dL (9-20); Calcium 8.9 mg/dL (8.4-10.2); Carbon Dioxide 30 mmol/L (22-30); Chloride 94 mmol/L (98-107); Estimated CRCL calculation 130 ml/min; Estimated Glomerular Filt Rate > 60; Glucose 109 mg/dL (75-110); Potassium 3.3 mmol/L (3.4-5.0); Sodium 130 mmol/L (137-145)
[2020-03-17 03:14] LABS: Troponin I 0.048 ng/mL (0.000-0.034)
[2020-03-17] MEDS: SODIUM CHLORIDE 0.9% IV 1,000 ML 80 ML IV CONT (03:37)
[2020-03-17] MEDS: LOSARTAN POTASSIUM 100 MG TABLET PO ×2 (03:39→19:49)
[2020-03-17] MEDS: DOXAZOSIN MESYLATE 2 MG TABLET PO ×2 (03:39→19:49)
[2020-03-17] MEDS: POTASSIUM CHLORIDE 20 MEQ TABLET 40 MEQ PO (05:27)
--- NOTE | 2020-03-17 07:57 | PM.IMPN ---
Progress Note: A&P Assessment and Plan (1) Alcohol abuse: Code(s): F10.10 - Alcohol abuse, uncomplicated Status: Acute Assessment and Plan: Will refer to 12 step program in the outpatient setting. Supportive care. (2) Frequent falls: Code(s): R29.6 - Repeated falls Status: Acute Assessment and Plan: Extensive work up in the past. Was told that he might have Narcolpsy. (3) Closed fracture of right distal tibia: Qualifiers: Encounter type: initial encounter Fracture morphology: other fracture Qualified Code(s): S82.391A - Other fracture of lower end of right tibia, initial encounter for closed fracture Code(s): S82.301A - Unspecified fracture of lower end of right tibia, initial encounter for closed fracture Status: Acute Assessment and Plan: Stable Follow up in the outpatient setting. (4) Generalized weakness: Code(s): R53.1 - Weakness Status: Acute Assessment and Plan: PT/OT (5) Fracture of metatarsal of left foot, closed: Code(s): S92.302A - Fracture of unspecified metatarsal bone(s), left foot, initial encounter for closed fracture Status: Acute Assessment and Plan: Will obtain CT of the L foot due to area of mass (6) Syncope and collapse: Code(s): R55 - Syncope and collapse Status: Acute Assessment and Plan: No significant changes from what it has been in the past. (7) Frequent falls: Code(s): R29.6 - Repeated falls Status: Chronic Assessment and Plan: Unchanged Extensive work up in the past. Subjective Date/time seen: 03/17/20 07:57 I feel very weak. Review of Systems Review of Systems: Narrative: Patient was brought to ED due to fall. Constitutional: Comments: no fevers, no rigors, no chills. Eyes: Comments: no vision changes. ENT: Comments: no ear ache, no throat pain, no nasal congestion. Cardiovascular: Comments: no chest pain. Respiratory: Comments: no sob, no cough, no sputum production. Gastrointestinal: Comments: no n/v/abdominal pain. Musculoskeletal: Comments: B/L LE swelling, Left foot mass. Integumentary/Breasts: Comments: no rashes. Neurologic: Comments: Recurrent falls. Hematologic/Lymphatic: Comments: No LAP. Exam Narrative: Exam Narrative: Lying in bed. Const: General: cooperative, comfortable, no acute distress, well developed, alert, awake, Physically active and other (Well appearing.) Nutritional Appearance: average body habitus Orientation/consciousness: patient oriented x3 HENMT: Head: normal to inspection and normocephalic Eyes: General: appearance normal, both eyes and all related structures Pupils: Equal, round and reactive pupils present EOM: EOMs intact bilaterally Neck: Neck: no lymphadenopathy and no JVD Resp: Auscultation: clear to auscultation bilaterally Cardio: Jugular venous distension: no JVD Rate: regular rate Rhythm: regular rhythm GI: Inspection: normal to inspection GI Palp: Yes Soft to palpation and Yes No hepatosplenomegaly present Skin: Rashes: no rashes Neuro: General: patient oriented x3 Cranial nerves: Yes CN's II-XII intact bilaterally and Yes Equal, round and reactive pupils present Cognition (Neuro): normal cognition Speech: normal speech Gait exam (Neuro): Normal gait present Motor exam (neuro): 5/5 motor strength present throughout Sensory Exam: normal sensation Extrem: General: full ROM Left lower extremity: edema and foot Details: abnormal to inspection and other (Mass at the dorsolateral aspect on the metatarsal area.) Objective Data Vital Signs Vital Signs: Vital Signs - 24 hr 03/16/20 18:19 03/16/20 20:13 03/16/20 20:57 Temperature 98.4 F Pulse Rate 108 H 107 H 125 H Pulse Rate [Monitor] Respiratory Rate 18 18 20 Blood Pressure 199/106 H 230/113 H 192/86 H Pulse Oximetry 99 99 98 03/16/20 21:29 03/16/20 22:58 03/16/20 22:59 Temperature Pul
[2020-03-17] MEDS: carvediloL 12.5 MG TABLET PO ×2 (09:47→19:49)
[2020-03-17] MEDS: THIAMINE HCL 100 MG TABLET PO (09:47)
[2020-03-17] MEDS: busPIRone HCL 5 MG TABLET PO ×3 (09:48→17:18)
[2020-03-17] MEDS: ENOXAPARIN 40 MG/0.4 ML SYRINGE SUB-Q (09:48)
[2020-03-17] MEDS: CYANOCOBALAMIN 1,000 MCG TABLET 1000 MCG PO (09:48)
[2020-03-17] MEDS: CITALOPRAM HYDROBROMIDE 20 MG TABLET PO (09:48)
[2020-03-17 22:42] LABS: SARS-CoV-2 RNA PCR Negative
[2020-03-18] VITALS (11 sets, daily range): BP systolic 133–171; BP diastolic 61–87; PULSE 67–92; RESP 14–20; TEMP 36.1–37.4; O2SAT 95–98
[2020-03-18] MEDS: CITALOPRAM HYDROBROMIDE 20 MG TABLET PO (07:50)
[2020-03-18] MEDS: carvediloL 12.5 MG TABLET PO (07:50)
[2020-03-18] MEDS: busPIRone HCL 5 MG TABLET PO ×3 (07:50→16:46)
[2020-03-18] MEDS: THIAMINE HCL 100 MG TABLET PO (07:51)
[2020-03-18] MEDS: CYANOCOBALAMIN 1,000 MCG TABLET 1000 MCG PO (07:51)
[2020-03-18] MEDS: ENOXAPARIN 40 MG/0.4 ML SYRINGE SUB-Q (07:51)
--- NOTE | 2020-03-18 12:33 | PM.IMPN ---
Progress Note: A&P Assessment and Plan (1) Elevated troponin: Code(s): R77.8 - Other specified abnormalities of plasma proteins Status: Acute Assessment and Plan: Patient is asymptomatic No chest pain Recent extensive cardiac work up within the last 5 months. 2DECHO reviewed Holter monitoring reviewed. Nuclear stress test reviewed. Cardiology consult Continue to monitor (2) Shortness of breath: Code(s): R06.02 - Shortness of breath Status: Acute Assessment and Plan: Likely secondary to deconditioning/debility PT/OT (3) Hypokalemia: Code(s): E87.6 - Hypokalemia Status: Acute Assessment and Plan: Replace as needed (4) Alcohol abuse: Code(s): F10.10 - Alcohol abuse, uncomplicated Status: Acute Assessment and Plan: Patient states that he has been abstinent. (5) Frequent falls: Code(s): R29.6 - Repeated falls Status: Acute Assessment and Plan: No recent falls Uses walker (6) Chronic insomnia: Code(s): F51.04 - Psychophysiologic insomnia Status: Acute Assessment and Plan: Unchanged. Subjective Date/time seen: 03/18/20 12:33 I feel very weak, I can't go home like this, I need to be able to walk. I want to work with PT. Review of Systems Review of Systems: Narrative: Feeling very weak, can't walk. Constitutional: Comments: no fevers, no chills. Eyes: Comments: no change in vision. ENT: Comments: no ear ache, no throat pain, no nasal congestion. Cardiovascular: Comments: no chest pain. Respiratory: Comments: no sob. Gastrointestinal: Comments: no n/v/abdominal pain. Musculoskeletal: Comments: Generalized weakness. Neurologic: Comments: no LOC. Exam Narrative: Exam Narrative: Lying in bed. Const: General: cooperative, comfortable, awake, Physically active, well groomed and other (Chronically ill looking.) Orientation/consciousness: patient oriented x3 HENMT: Head: normocephalic Ears: hearing grossly normal bilaterally General nose exam: Normal external nose present Eyes: General: appearance normal, both eyes and all related structures Pupils: Equal, round and reactive pupils present EOM: EOMs intact bilaterally Neck: Neck: no lymphadenopathy, supple and no JVD Resp: Effort & Inspection: normal respiratory effort Auscultation: clear to auscultation bilaterally Cardio: Jugular venous distension: no JVD Rate: regular rate Rhythm: regular rhythm GI: GI Palp: Yes Soft to palpation and Yes No hepatosplenomegaly present Skin: Rashes: no rashes Neuro: General: patient oriented x3 and CN's II-XI intact bilaterally Cranial nerves: Yes CN's II-XII intact bilaterally and Yes Equal, round and reactive pupils present Cognition (Neuro): normal cognition Speech: normal speech Gait exam (Neuro): Normal gait present Motor exam (neuro): 5/5 motor strength present throughout Extrem: General: pedal edema bilaterally non-pitting and 2+ Objective Data Vital Signs Vital Signs: Vital Signs - 24 hr 03/17/20 14:00 03/17/20 16:00 03/17/20 18:00 Temperature 97.8 F Pulse Rate 73 75 84 Pulse Rate [Monitor] Respiratory Rate 16 Blood Pressure 153/78 H Pulse Oximetry 96 03/17/20 19:49 03/17/20 19:55 03/17/20 20:00 Temperature 97.5 F L Pulse Rate 73 72 73 Pulse Rate [Monitor] 75 Respiratory Rate 20 Blood Pressure 155/84 H Pulse Oximetry 94 03/17/20 22:00 03/17/20 23:59 03/18/20 00:00 Temperature 97.5 F L Pulse Rate 75 76 70 Pulse Rate [Monitor] 70 Respiratory Rate 20 Blood Pressure 148/77 H Pulse Oximetry 98 03/18/20 02:00 03/18/20 04:00 03/18/20 06:00 Temperature 97 F L Pulse Rate 92 75 92 Pulse Rate [Monitor] 75 Respiratory Rate 20 Blood Pressure 133/61 Pulse Oximetry 97 03/18/20 07:50 03/18/20 08:00 03/18/20 10:00 Temperature 97.5 F L Pulse Rate 73 83 68 Pulse Rate [Monitor] Respiratory Rate 16 Blood
--- NOTE | 2020-03-18 16:32 | PM.CNCAR ---
Assessment and Plan Assessment and plan (1) Hypokalemia: Code(s): E87.6 - Hypokalemia Status: Acute Assessment and Plan: His electrolyte imbalances likely related to his alcohol use. N low sodium levels are likely related to beer drinkers potomania. Repeat a basic metabolic panel and potassium level in the morning (2) Essential hypertension: Code(s): I10 - Essential (primary) hypertension Status: Chronic Assessment and Plan: Elevated. In part related to his alcohol use. Will increase his carvedilol up to 25 mg p.o. b.i.d.. (3) Elevated troponin: Code(s): R77.8 - Other specified abnormalities of plasma proteins Status: Acute Assessment and Plan: Likely related to marked hypertension. This is not related to ACS from plaque rupture. Had a normal stress test recently. (4) Alcohol abuse: Code(s): F10.10 - Alcohol abuse, uncomplicated Status: Acute Assessment and Plan: He 1st states that he drinks 3-4 beers daily but then later admits that it is more accurate to say that he drinks about 12 beers per day. He is interested and reducing or eliminating his alcohol intake. Social work to see. alcohol cessation counseling is performed History of Present Illness History of Present Illness Consult date/time: 03/18/20 16:32 Requesting physician: Madelyn John MD Consult reason: Other (Elevated troponin) Reason For Visit: elevated troponin, nausea and vomiting, Narrative: Date of service: 03/18/2020 Reason for consultation elevated troponin History: Patient is a 59-year-old male who has a history of alcoholism. He drinks about 12 beers per day. He has history of anxiety and depression, hypertension, prostate cancer. His alcohol abuse has worsened since Coronavirus as he predominantly is at home all the time. There was some concerns about Coronavirus and a be sent to the ER. He was having some issues with diarrhea and weakness and falls. Patient though states he has not had any chest pain. He does have some mild shortness of breath which is not new or different. Does have some mild lower extremity swelling which is unchanged but better since admission. No paroxysmal nocturnal dyspnea, orthopnea. He does have some weakness issues but no palpitations. He is concerned of COVID like symptoms for previous 2-3 weeks but is Coronavirus test was negative. Does have some fatigue with decreased appetite. For unknown reasons, a troponin was drawn which was minimally abnormal. His blood pressure was markedly elevated though at presentation to the ER Review of Systems Review of Systems: All systems reviewed & are unremarkable except as noted in HPI and below Constitutional: Constitutional: Reports weakness Eyes: Eyes: Denies blurry vision ENT: Reports Normal hearing present Cardiovascular: Cardiovascular: Denies chest pain Respiratory: Respiratory: Reports dyspnea Gastrointestinal: Gastrointestinal: Denies abdominal pain Genitourinary: Genitourinary: Denies dysuria Musculoskeletal: Musculoskeletal: Denies neck pain Integumentary/Breasts: Skin/Breast: Denies dry skin Neurologic: Denies headache(s) Psychiatric: Psychiatric: Reports anxiety and Reports depression Endocrine: Endocrine: Denies excessive sweating Hematologic/Lymphatic: Hematologic/Lymphatic: Denies easy bleeding Allergic/Immunologic: Allergic/Immunologic: Denies GI upset with certain foods PMFSH Past Medical History Medical History Alcohol abuse Fracture of metatarsal of left foot, closed Frequent falls Laceration of occipital region of scalp Syncope and collapse Surgical History Surgical History History of appendectomy Family History Family History Father Malignant neoplasm of prostate Mother COPD
--- NOTE | 2020-03-18 18:04 | PC.NURSE ---
This patient, Cynthia Maldonado, was transferred to [facility] on 03/18/20 at 1804. Personal belongings sent with patient. Report given to MITCHELL Zimmerman. Appropriate documentation sent with patient.
[2020-03-18 18:48] LABS: Troponin I 0.014 ng/mL (0.000-0.034)
[2020-03-18] MEDS: LOSARTAN POTASSIUM 100 MG TABLET PO (20:55)
[2020-03-18] MEDS: DOXAZOSIN MESYLATE 2 MG TABLET PO (20:55)
[2020-03-18] MEDS: carvediloL 25 MG TABLET PO (20:55)
[2020-03-19] VITALS (9 sets, daily range): BP systolic 146–161; BP diastolic 77–89; PULSE 64–72; RESP 16–20; TEMP 36.4–37.7; O2SAT 96–97
[2020-03-19 04:49] LABS: Anion Gap 5 mmol/L (8-16); Blood Urea Nitrogen 15 mg/dL (9-20); Calcium 8.6 mg/dL (8.4-10.2); Carbon Dioxide 29 mmol/L (22-30); Chloride 98 mmol/L (98-107); Estimated CRCL calculation 129 ml/min; Estimated Glomerular Filt Rate > 60; Glucose 99 mg/dL (75-110); Potassium 3.3 mmol/L (3.4-5.0); Sodium 132 mmol/L (137-145)
[2020-03-19] MEDS: busPIRone HCL 5 MG TABLET PO ×3 (08:50→18:15)
[2020-03-19] MEDS: carvediloL 25 MG TABLET PO ×2 (08:50→20:35)
[2020-03-19] MEDS: CYANOCOBALAMIN 1,000 MCG TABLET 1000 MCG PO (08:52)
[2020-03-19] MEDS: CITALOPRAM HYDROBROMIDE 20 MG TABLET PO (08:52)
[2020-03-19] MEDS: ENOXAPARIN 40 MG/0.4 ML SYRINGE SUB-Q (08:52)
[2020-03-19] MEDS: THIAMINE HCL 100 MG TABLET PO (08:52)
--- OUTSIDE RECORDS SUMMARY | 2020-03-19 10:12 | XMS_ITS ---
:1960 Author Care Team Providers Name Role Phone Codey Lindquist Primary Care Provider Unavailable Allergies Code Code System Name Reaction Severity Status Onset NKDA ? Medications Name Status Start Date Stop Date ? ? amoxicillin 875 mg-potassium clavulanate Active ? Not available 125 mg tablet buspirone 5 mg tablet Active ? Not availa ble carvedilol 12.5 mg tablet Active ? Not av ailable citalopram 20 mg tablet Active ? Not avai lable doxazosin 2 mg tablet Active ? Not availa ble doxycycline hyclate 100 mg tablet Active ? Not available folic acid 1 mg tablet Active ? Not avail able losartan 100 mg tablet Active ? Not avail able metoprolol succinate ER 100 mg Active ? N ot available tablet,extended release 24 hr mupirocin 2 % topical ointment Active ? N ot available ondansetron 4 mg disintegrating tablet Active ? Not available trazodone 50 mg tablet Active ? Not avail able zolpidem 5 mg tablet Active ? Not availab le Problems Name Status Onset Date Source ? Edema of Foot Active 11/28/2019 ? Closed Fracture Dislocation of Tarsometatarsal Active 0 11/28/2019 ? Joint Blister of Foot Active 11/28/2019 ? Closed Fracture of Second Metatarsal Bone Active 2019 ? Closed Fracture of Third Metatarsal Bone Active 020 ? Closed Fracture of Fourth Metatarsal Bone Active 2019 ? Hypertensive Disorder Active ? ? Procedures Date Name Perfor
--- OUTSIDE RECORDS SUMMARY | 2020-03-19 10:12 | XMS_ITS | Encounter Summary ---
:1960 Author Reason for Visit Closed fracture of third metatarsal bone Assessment and Plan 1. Closed fracture of third meta tarsal bone 2. Pain in left foot ? XR, foot 3. Closed fracture dislocation o f tarsometatarsal joint Stable and resolved. Patient constance ay now return to regular shoe without restriction. Advised him is normal the have some pain and swelling with return activity as he will likely developed some posttraumatic osteoarthritic changes long-term. Otherwise patient may follow up as need ed 4. Closed fracture of fourth met atarsal bone 5. Closed fracture of second met atarsal bone Discussion Note: None recorded.Patient educational handouts: No information available. Plan of Care Reminders Provider Appointments None ? ? recorded. Lab None ? ? recorded. Referral None ? ? recorded. Procedures None ? ? recorded. Surgeries None ? ? recorded. Imaging XR, Foot 01/16/2020 In-Offic e Order Medications Name Start Date ? ? amoxicillin 875 mg-potassium clavulanate 125 mg tablet ? buspirone 5 mg tablet ? carvedilol 12.5 mg tablet ? citalopram 20 mg tablet ? doxazosin 2 mg tablet ? doxycycline hyclate 100 mg tablet ? folic acid 1 mg tablet ? losartan 100 mg tablet ?
[2020-03-19 10:56] LABS: Magnesium 1.5 mg/dL (1.6-2.3)
[2020-03-19] MEDS: POTASSIUM CHLORIDE 20 MEQ TABLET 80 MEQ PO (11:27)
--- NOTE | 2020-03-19 15:11 | PM.IMPN ---
Progress Note: A&P Assessment and Plan (1) Elevated troponin: Code(s): R77.8 - Other specified abnormalities of plasma proteins Status: Acute Assessment and Plan: Extensive work up in the past Appreciate Cardiology note. Unlikely to be ACS. (2) Hypokalemia: Code(s): E87.6 - Hypokalemia Status: Acute Assessment and Plan: Replace as needed (3) Alcohol abuse: Code(s): F10.10 - Alcohol abuse, uncomplicated Status: Acute Assessment and Plan: Will refer to twelve step program in the outpatient setting. (4) Frequent falls: Code(s): R29.6 - Repeated falls Status: Acute Assessment and Plan: No recent fall Participating in therapy with PT/OT (5) Acute hyponatremia: Code(s): E87.1 - Hypo-osmolality and hyponatremia Status: Acute Assessment and Plan: Free water restriction Continue to monitor (6) Generalized weakness: Code(s): R53.1 - Weakness Status: Acute Assessment and Plan: PT/OT Home with home health. Subjective Date/time seen: 03/19/20 15:11 States that he is still very weak when in comparison to his usual. Review of Systems Review of Systems: Narrative: Generalized weakness. Constitutional: Comments: no chills, no fevers, no rigors. Eyes: Comments: no vision changes. ENT: Comments: no ear ache, no throat pain, no nasal discharge. Cardiovascular: Comments: no chest pain. Respiratory: Comments: no sob, cough or sputum production. Gastrointestinal: Comments: no n/v/abdominal pain. Musculoskeletal: Comments: b/l le edema Neurologic: Comments: no loc, no recent falls. Exam Narrative: Exam Narrative: Lying in bed. Const: General: cooperative, alert, awake, Physically active and other (Chronically ill looking.) Nutritional Appearance: average body habitus HENMT: Head: normal to inspection and normocephalic Ears: hearing grossly normal bilaterally General nose exam: Normal external nose present Face and sinus: normal facial exam Eyes: General: appearance normal, both eyes and all related structures Pupils: Equal, round and reactive pupils present EOM: EOMs intact bilaterally Neck: Neck: no lymphadenopathy, supple and no JVD Resp: Auscultation: clear to auscultation bilaterally Cardio: Jugular venous distension: no JVD Rate: regular rate Rhythm: regular rhythm GI: Inspection: normal to inspection GI Palp: Yes Soft to palpation and Yes No hepatosplenomegaly present Skin: General skin exam: pallor Rashes: no rashes Neuro: General: patient oriented x3 and CN's II-XI intact bilaterally Cranial nerves: Yes CN's II-XII intact bilaterally and Yes Equal, round and reactive pupils present Cognition (Neuro): normal cognition Speech: normal speech Motor exam (neuro): 5/5 motor strength present throughout Sensory Exam: normal sensation Extrem: General: other (B/L LE ankle edema.) Objective Data Vital Signs Vital Signs: Vital Signs - 24 hr 03/18/20 16:00 03/18/20 18:14 03/18/20 20:55 Temperature 97.7 F 99.4 F Pulse Rate 67 82 80 Pulse Rate [Monitor] Respiratory Rate 18 14 Blood Pressure 149/80 H 138/82 Pulse Oximetry 95 98 03/19/20 00:00 03/19/20 08:00 03/19/20 08:50 Temperature 97.5 F L 98.0 F Pulse Rate 71 72 72 Pulse Rate [Monitor] 71 Respiratory Rate 18 16 Blood Pressure 148/77 H 161/89 H Pulse Oximetry 96 97 Intake/Output Intake/Output: Intake & Output 03/16/20 03/17/20 03/18/20 03/19/20 23:59 23:59 23:59 23:59 Intake Total 2169 330 6545 100 Output Total 975 1875 950 Balance 1000 20 65 -850 Meds/Results Medications: Active Medications Generic Name Dose Route Start Last Admin Trade Name Freq PRN Reason Stop Dose Admin Buspirone HCl 5 mg 03/17/20 09:00 03/19/20 08:50 Buspirone Hcl 5 Mg Tablet PO 5 mg TID SADI Administration Carvedilol 25 mg 03/18/20 21:00 03/19/20 08:50 Carvedilol 25 Mg Tablet PO 25 mg
--- NOTE | 2020-03-19 15:14 | PC.NURSE ---
Entry for 1430 - PT in to work with patient
[2020-03-19] MEDS: LOSARTAN POTASSIUM 100 MG TABLET PO (20:35)
[2020-03-19] MEDS: DOXAZOSIN MESYLATE 2 MG TABLET PO (20:36)
[2020-03-19] MEDS: ACETAMINOPHEN 325 MG TABLET 650 MG PO (20:53)
[2020-03-20] VITALS (7 sets, daily range): BP systolic 137–173; BP diastolic 71–89; PULSE 66–80; RESP 18–20; TEMP 36.6–37.2; O2SAT 95–98
[2020-03-20] MEDS: CITALOPRAM HYDROBROMIDE 20 MG TABLET PO (08:03)
[2020-03-20] MEDS: busPIRone HCL 5 MG TABLET PO ×3 (08:04→17:14)
[2020-03-20] MEDS: THIAMINE HCL 100 MG TABLET PO (08:04)
[2020-03-20] MEDS: carvediloL 25 MG TABLET PO ×2 (08:04→20:13)
[2020-03-20] MEDS: CYANOCOBALAMIN 1,000 MCG TABLET 1000 MCG PO (08:04)
[2020-03-20] MEDS: ENOXAPARIN 40 MG/0.4 ML SYRINGE SUB-Q (08:05)
--- NOTE | 2020-03-20 14:15 | PM.IMPN ---
Progress Note: A&P Assessment and Plan (1) Elevated troponin: Code(s): R77.8 - Other specified abnormalities of plasma proteins Status: Acute Assessment and Plan: Doubtful of ACS Extensive work up in the recent past (2) Hypokalemia: Code(s): E87.6 - Hypokalemia Status: Acute Assessment and Plan: Replace as needed (3) Alcohol abuse: Code(s): F10.10 - Alcohol abuse, uncomplicated Status: Acute Assessment and Plan: Patient wants to go to 12 step program (4) Frequent falls: Code(s): R29.6 - Repeated falls Status: Acute Assessment and Plan: Likely secondary to ETOH intoxication Extensive work up as well in the past. (5) Transaminitis: Code(s): R74.01 - Elevation of levels of liver transaminase levels Status: Chronic Assessment and Plan: Likely secondary to ETOH intake (6) Acute hyponatremia: Code(s): E87.1 - Hypo-osmolality and hyponatremia Status: Acute Assessment and Plan: On further history taking patient states that he drinks roughly 12 beers a day plus 8-15 bottles of water. Likely to be dilutional Continue fluid restriciton. (7) Vitamin B12 deficiency: Code(s): E53.8 - Deficiency of other specified B group vitamins Status: Acute Assessment and Plan: Likely due to poor oral intake Follow up in the outpatient setting. (8) Generalized weakness: Code(s): R53.1 - Weakness Status: Acute Assessment and Plan: Participating in PT/OT Subjective Date/time seen: 03/20/20 14:15 States that he feels much better has been participating PT/OT Had low grade temp overnight Review of Systems Review of Systems: Narrative: Generalized weakness. Constitutional: Comments: Low garde temp. Eyes: Comments: no vision changes. ENT: Comments: no ear ache, no throat pain, no nasal congestion. Cardiovascular: Comments: no chest pain. Respiratory: Comments: no sob, no cough, no sputum production. Gastrointestinal: Comments: no n/v/abdominal pain. Musculoskeletal: Comments: B/L pedal edema. Integumentary/Breasts: Comments: no rashes. Neurologic: Comments: no sensory motor deficit. Exam Narrative: Exam Narrative: Chronically ill looking. Const: General: comfortable, no acute distress, alert, awake, Physically active and other (Chronically ill looking.) Nutritional Appearance: average body habitus HENMT: Head: normal to inspection and normocephalic Ears: hearing grossly normal bilaterally General nose exam: Normal external nose present Face and sinus: normal facial exam Eyes: General: appearance normal, both eyes and all related structures Pupils: Equal, round and reactive pupils present EOM: EOMs intact bilaterally Neck: Neck: no lymphadenopathy, supple and no JVD Resp: Effort & Inspection: normal respiratory effort Auscultation: clear to auscultation bilaterally Cardio: Rate: regular rate Rhythm: regular rhythm GI: GI Palp: Yes Soft to palpation and Yes No hepatosplenomegaly present Skin: General skin exam: normal color Neuro: General: patient oriented x3 and CN's II-XI intact bilaterally Cranial nerves: Yes CN's II-XII intact bilaterally and Yes Equal, round and reactive pupils present Cognition (Neuro): normal cognition Speech: normal speech Motor exam (neuro): 5/5 motor strength present throughout Extrem: General: pedal edema bilaterally Objective Data Vital Signs Vital Signs: Vital Signs - 24 hr 03/19/20 16:00 03/19/20 20:00 03/19/20 20:35 Temperature 98.7 F 99.9 F H Pulse Rate 72 64 64 Respiratory Rate 16 20 Blood Pressure 156/85 H Pulse Oximetry 97 03/19/20 20:53 03/19/20 21:53 03/19/20 22:00 Temperature 99.9 F H 98.4 F 98.4 F Pulse Rate Respiratory Rate Blood Pressure Pulse Oximetry 03/20/20 00:00 03/20/20 07:51 03/20/20 08:00 Temperature 98.0 F 98.2 F Pulse Rate 71 80 80 Respiratory Rate 18 18
[2020-03-20 15:11] LABS: Basophils Percent Auto 0.8 % (0.2-1.2); Eosinophils Absolute Auto 0.1 K/mm3 (0-0.3); Hemoglobin 12.6 g/dL (14.0-18.0); Immature Granulocyte Absolute 0.03 K/mm3 (0.00-0.031); Immature Granulocyte Percent A 0.6 % (0-0.5); Immature Platelet Fraction Pct 6.3 % (0.9-11.2); Lymphocytes Absolute Auto 0.95 K/mm3 (0.9-3.2); Lymphocytes Percent Auto 18.7 % (18.3-44.2); Mean Corpuscular HGB Conc 34.1 g/dl (32-36); Mean Corpuscular Volume 96.9 fl (80-100); Mean Platelet Volume 10.1 fl (7.4-10.4); Monocytes Absolute Auto 0.7 K/mm3 (0.1-0.6); Monocytes Percent Auto 14.4 % (2.6-8.5); Neutrophils Absolute Auto 3.2 K/mm3 (1.3-6.7); Neutrophils Percent Auto 63.5 % (45.5-73.1); Platelet Count Result 163 k/mm3 (150-375); Red Blood Count 3.82 M/mm3 (4.6-6.20); Red Cell Distribution Width 14.8 % (11.5-14.5); White Blood Count 5.1 K/mm3 (4.5-10.0)
[2020-03-20 15:21] LABS: Anion Gap 7 mmol/L (8-16); Blood Urea Nitrogen 19 mg/dL (9-20); Calcium 9.2 mg/dL (8.4-10.2); Carbon Dioxide 26 mmol/L (22-30); Chloride 101 mmol/L (98-107); Estimated CRCL calculation 128 ml/min; Estimated Glomerular Filt Rate > 60; Glucose 100 mg/dL (75-110); Potassium 3.7 mmol/L (3.4-5.0); Sodium 134 mmol/L (137-145)
[2020-03-20] MEDS: LOSARTAN POTASSIUM 100 MG TABLET PO (20:14)
[2020-03-20] MEDS: ACETAMINOPHEN 325 MG TABLET 650 MG PO (20:14)
[2020-03-20] MEDS: DOXAZOSIN MESYLATE 2 MG TABLET PO (20:14)
--- NOTE | 2020-03-21 01:00 | PC.NURSE ---
This patient, Cynthia Maldonado, was received from [ CP 6] on 03/20/20 at 1930. Patient/family oriented to unit policies and routines
[2020-03-21 06:22] VITALS: BP 151/79; PULSE 69; RESP 16; TEMP 36.9; O2SAT 98
[2020-03-21 08:04] VITALS: PULSE 80
[2020-03-21] MEDS: carvediloL 25 MG TABLET PO (08:04)
[2020-03-21] MEDS: THIAMINE HCL 100 MG TABLET PO (08:04)
[2020-03-21] MEDS: busPIRone HCL 5 MG TABLET PO (08:04)
[2020-03-21] MEDS: CITALOPRAM HYDROBROMIDE 20 MG TABLET PO (08:05)
[2020-03-21] MEDS: CYANOCOBALAMIN 1,000 MCG TABLET 1000 MCG PO (08:05)
[2020-03-21] MEDS: ENOXAPARIN 40 MG/0.4 ML SYRINGE SUB-Q (08:05)
--- NOTE | 2020-03-21 10:47 | P.HP_ITS ---
H&P: HPI History of Present Illness Date/Time: 03/21/20 10:47 Narrative: Cynthia Maldonado is a 59 year old male [facility] Past Medical History Medical History Alcohol abuse Fracture of metatarsal of left foot, closed Frequent falls Laceration of occipital region of scalp Syncope and collapse Surgical History Surgical History History of appendectomy Family History Family History Father Malignant neoplasm of prostate Mother COPD (chronic obstructive pulmonary disease) Other Family history of malignant neoplasm Social History Social History Social History: Smoking packs per day: 1 Smoking cigarettes per day: 20.0 Years smoked: 20 Smoking pack-years: 20.00 Smoking status: Former smoker Tobacco type: cigarettes Second hand tobacco smoke exposure: No Alcohol intake: current Drinks per week: 35 Substance use: never Substance use type: does not use Gender identity (if verbalized by the patient): Male Spiritual care concerns: No Meds Home Medications and Allergies Home Medications Medication Instructions Recorded Confirmed Type citalopram 20 mg tablet 20 mg PO DAILY #90 tablet 12/03/19 03/17/20 Rx buspirone 5 mg tablet 5 mg PO TID #90 tablet 12/10/19 03/17/20 Rx Culturelle 1 cap PO DAILY 01/08/20 03/17/20 History doxazosin 2 mg PO HS 01/29/20 03/17/20 History losartan 100 mg PO HS 01/29/20 03/17/20 History Mepilex #5 ea 02/04/20 03/17/20 Rx naproxen sodium 220 mg PO Q12H PRN #0 cap 02/04/20 03/17/20 Rx carvedilol [Coreg] 25 mg PO Q12HR #60 tablet 03/19/20 Rx cyanocobalamin (vitamin B-12) 1,000 mcg PO QAM #90 tablet 03/21/20 Rx [Vitamin B-12] thiamine HCl (vitamin B1) [Vitamin 100 mg PO QAM #90 tablet 03/21/20 Rx B-1] Allergies Allergy/AdvReac Type Severity Reaction Status Date / Time No Known Allergies Allergy Verified 02/12/20 13:47 Vital Signs Vital Signs - 24 hr 03/20/20 15:41 03/20/20 20:13 03/20/20 21:48 Temperature 99 F 97.8 F Pulse Rate 66 76 76 Respiratory Rate 20 20 Blood Pressure 162/87 H 173/89 H Pulse Oximetry 97 95 03/21/20 06:22 03/21/20 08:04 Temperature 98.5 F Pulse Rate 69 80 Respiratory Rate 16 Blood Pressure 151/79 H Pulse Oximetry 98 H&P: Results Labs Labs: Short CBC 03/20/20 Range/Units 15:03 WBC 5.1 (4.5-10.0) K/mm3 Hgb 12.6 L (14.0-18.0) g/dL Hct 37.0 L (42.0-52.0) % Plt Count 163 (150-375) k/mm3 BMP 03/20/20 15:03 Sodium 134 L Potassium 3.7 Chloride 101 Carbon Dioxide 26 BUN 19 Creatinine 0.70 Glucose 100 Calcium 9.2
--- NOTE | 2020-03-22 14:40 | PM.DS ---
DS: Admitting Diagnosis Admitting Diagnosis Admitting Diagnosis: Recurrent falls Generalized weakness ETOH dependence DS: Discharge Diagnosis Discharge Diagnosis (1) Alcohol abuse: Code(s): F10.10 - Alcohol abuse, uncomplicated Status: Acute Assessment and Plan: Patient states that he drinks up 12 beers a day. Was referred to 12 step program. (2) Frequent falls: Code(s): R29.6 - Repeated falls Status: Acute Assessment and Plan: Likely secondary to number 1. (3) Transaminitis: Code(s): R74.01 - Elevation of levels of liver transaminase levels Status: Chronic Assessment and Plan: Likely secondary to number 1 (4) Acute hyponatremia: Code(s): E87.1 - Hypo-osmolality and hyponatremia Status: Acute Assessment and Plan: Back to normal after fluid restriction (5) Vitamin B12 deficiency: Code(s): E53.8 - Deficiency of other specified B group vitamins Status: Acute Assessment and Plan: Likely secondary to poor oral intake (6) Generalized weakness: Code(s): R53.1 - Weakness Status: Acute Assessment and Plan: PT/OT homehealth (7) Fall: Code(s): W19.XXXA - Unspecified fall, initial encounter Status: Chronic Assessment and Plan: Uses walker. DS: Summary Hospital Course Hospital Course: Patient admitted due to falling at home patient is well known to our service he has had extensive work up at [facility]. Patient is also known to drink 12 = beers daily and is homebound. He was found to have low sodium and was placed on a free water restriction. Sodium came marshall up to normal level. Patient participated with PT/OT in therapy sessions. Other studies were foot xr which showed soft tissue edema and healing chronic fractures. No events during his hospital admission. Patient was given counseling regarding his Alcohol intake and was referred to 12 step program in the outpatient setting.PE was ruled as well probably because patient was passing out at home. TECHNIQUE: Spiral CTA of the chest (pulmonary arteries) was performed with 100 cc Omnipaque 350 intravenous contrast injection. Images were acquired during the pulmonary arterial phase. Coronal maximum intensity projection 3D-reconstructions were created by the technologist on dedicated workstation. Axial, coronal and sagittal reformatted images were reviewed. The dose-length product (DLP) for this examination was 1055.58 mGy-cm. The exposure was tailored according to patient size (auto mA exposure control), and iterative reconstruction (ASIR) was used as additional dose reduction technique. There is no prior study for comparison. FINDINGS: There are no pulmonary emboli in the 1st through 3rd order (central and interlobar) pulmonary arteries. Some loss of attenuation in the segmental pulmonary arteries due to respiratory motion, but no intraluminal filling defects suspected. No thoracic aortic dissection. Small amount of basilar groundglass opacities appearance most consistent with subsegmental atelectasis There are no pleural or pericardial effusions. Tracheobronchial tree is patent. There is no mediastinal, hilar or axillary lymphadenopathy. There is no pneumothorax. Heart normal in size. No evidence of coronary arterial calcification. There is hepatic steatosis. There is thoracic spondylosis without osteoblastic or osteolytic lesions identified. Diffuse idiopathic skeletal hyperostosis versus ankylosing spondylitis. IMPRESSION: 1. Limited segmental evaluation, but no pulmonary emboli are suspected. 2. Mild basilar groundglass density most likely subsegmental atelectasis. 3. DISH versus ankylosing spondylitis. 4. Hepatic steatosis. DATE: 03/18/2020 09:06 INDICATION: Left foot swelling and mass. TECHNIQUE: Computed tomography (CT) of the left foot was performed without intravenous contrast. Automated exposure control and iterative reconstr
== END 2020-03-21 11:04 | disposition home health service (06) | DRG 897 ==
LOC: ANHED 23:17 → ANHIMU 03-17 13:28 → ANHCPC 03-19 11:25 → ANH2MED 03-21 10:33 → ANHCPC 03-24 16:09 → ANHIMU 03-24 16:09
PROVIDERS: Emergency Medicine; Internal Medicine Cardiovascular Disease; Nurse Practitioner; Admitting Provider Student in an Organized Health Care Education/Training Program; Emergency Provider Emergency Medicine; PCP Family Medicine; Visit Provider Internal Medicine
DX: F10.229 Alcohol dependence with intoxication, unspecified (principal); E87.1 Hypo-osmolality and hyponatremia; E87.6 Hypokalemia; Z20.828 Contact with and (suspected) exposure to other viral communicable diseases; R74.01 Elevation of levels of liver transaminase levels; R29.6 Repeated falls; E53.8 Deficiency of other specified B group vitamins; D69.6 Thrombocytopenia, unspecified; F41.8 Other specified anxiety disorders; M19.90 Unspecified osteoarthritis, unspecified site; I10 Essential (primary) hypertension; G47.00 Insomnia, unspecified; Z87.891 Personal history of nicotine dependence; Z86.718 Personal history of other venous thrombosis and embolism
CPT/HCPCS: 36415; 71045; 71275; 73700; 80048; 80053; 80307; 83735; 83880; 84484; 85025; 85055; 85610; 85730; 87081; 87635; 87804; 87880; 93005; 96360; 96361; 96372; 96374; 96375; 97110; 97116; 97162; 97165; 97530; 97535; 99285; A9270; C9803; G0378; G0379; J0360; J1650; J2060; J2405; J7030; Q9967; U0003

== ENCOUNTER 2020-04-24 09:23 | Outpatient (CLI) | payer OTHER, SELFPAY ==
--- NOTE | ~2020-04-24 | US_ITS ---
EXAMINATION: US venous doppler [facility] EXAM DATE: 04/24/2020 10:08 INDICATION: I82.461 - Acute embolism and thrombosis of right calf muscular vein. Bilateral leg swelli ng. TECHNIQUE: Multiple grayscale, color flow and Doppler images of the lower extremity deep venous syste ms bilaterally were obtained and reviewed. Comparison is made to prior examination from 01/31/2020. FINDINGS: Right side: The right common femoral, femoral and profunda veins demonstrate normal color flow, respi ratory variation, augmentation and compressibility. Compressibility, color flow confirmed within the right popliteal, posterior tibial, peroneal, and greater saphenous veins. Previously seen right pos terior tibial DVT has resolved. Left side: The left common femoral, femoral and profunda veins demonstrate normal color flow, respira tory variation, augmentation and compressibility. Compressibility, color flow confirmed within the l eft popliteal, posterior tibial, and greater saphenous veins. Peroneal poorly visualized. IMPRESSION: No lower extremity deep venous thrombosis bilaterally. Reviewed, dictated and finalized at location A. TION WORKER
== END 2020-04-24 09:24 | disposition home or self-care (01) ==
PROVIDERS: PCP Family Medicine; Visit Provider Physician Assistant
DX: I82.461 Acute embolism and thrombosis of right calf muscular vein (principal); M79.89 Other specified soft tissue disorders
CPT/HCPCS: 93970

== ENCOUNTER 2020-05-28 09:44 | Outpatient (CLI) | payer OTHER, SELFPAY ==
--- NOTE | 2020-05-28 12:00 | NEURO_ITS ---
Impression: # Complains of paresthesia of lower extremities. 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 # Neurogenic changes in muscles tested on needle Nerve Conduction Studies Anti Sensory Summary Table Stim Site NR Peak (ms) P-T Amp (?V) Site1 Site2 Delta-P (ms) Dist (cm) Roberto (m/s) Left Sup Fibular Anti Sensory (Ant Lat Mall) NO RESPONSE 14 cm NR 14 cm Ant Lat Mall 16.0 Right Sup Fibular Anti Sensory (Ant Lat Mall) 14 cm 3.8 8.7 14 cm Ant Lat Mall 3.8 16.0 42 Left Sural Anti Sensory (Lat Mall) NO RESPONSE Calf NR Calf Lat Mall 16.0 Right Sural Anti Sensory (Lat Mall) Calf 4.1 8.9 Calf Lat Mall 4.1 16.0 39 Motor Summary Table Stim Site NR Onset (ms) O-P Amp (mV) Site1 Site2 Delta-0 (ms) Dist (cm) Roberto (m/s) Left Peroneal Motor (Vastus Med) NO RESPONSE Ankle NR Popit NR Right Peroneal Motor (Vastus Med) NO RESPONSE Ankle NR Popit Ankle 0.0 Popit NR Left Tibial Motor (Abd Cormier Brev) NO RESPONSE Ankle NR Knee NR Right Tibial Motor (Abd Cormier Brev) Ankle 5.0 0.3 Knee Ankle 13.4 47.0 35 Knee 18.4 0.2 F Wave Studies NR F-Lat (ms) L-R F-Lat (ms) Left Peroneal (Mrkrs) (EDB) NO RESPONSE NR Right Peroneal (Mrkrs) (EDB) NO RESPONSE NR Left Tibial (Mrkrs) (Abd Hallucis) NO RESPONSE NR Right Tibial (Mrkrs) (Abd Hallucis) NO RESPONSE NR EMG Side Muscle Nerve Root Ins Act Fibs Amp Dur Recrt Comment Right AntTibialis Dp Br Fibular L4-5 Nml Nml Nml Nml Reduced Right Gastroc Tibial S1-2 Nml Nml Nml Nml Reduced Right Fibularis Long Sup Br Fibular L5-S1 Nml Nml Decr >12ms Reduced Right Flex Dig Long Tibial L5-S2 Nml Nml Nml Nml Reduced Right Ext Dig Brev Dp Br Fibular L5, S1 Nml Nml Decr >12ms Reduced Left AntTibialis Dp Br Fibular L4-5 Nml Nml Nml Nml Reduced Left Gastroc Tibial S1-2 Nml Nml Nml Nml Reduced Left Fibularis Long Sup Br Fibular L5-S1 Nml Nml Decr >12ms Reduced Left Flex Dig Long Tibial L5-S2 Nml Nml Nml Nml Reduced Left Ext Dig Brev Dp Br Fibular L5, S1 Nml Nml Decr >12ms Reduced MTDD
== END 2020-05-28 09:45 | disposition home or self-care (01) ==
LOC: ANHNEURO 09:45
PROVIDERS: PCP Family Medicine; Visit Provider Psychiatry & Neurology Neurology
DX: R20.0 Anesthesia of skin (principal); G62.9 Polyneuropathy, unspecified
CPT/HCPCS: 95886; 95910

== ENCOUNTER 2021-01-25 08:02 | Outpatient (CLI) | payer OTHER, SELFPAY ==
[2021-01-25 08:24] LABS: Basophils Absolute Auto 0.1 K/mm3 (0.0-0.1); Basophils Percent Auto 0.9 % (0.2-1.2); Eosinophils Absolute Auto 0.2 K/mm3 (0-0.3); Eosinophils Percent Auto 2.9 % (0-4.4); Hematocrit 37.2 % (42.0-52.0); Hemoglobin 12.6 g/dL (14.0-18.0); Immature Granulocyte Absolute 0.05 K/mm3 (0.00-0.031); Immature Granulocyte Percent A 0.6 % (0-0.5); Lymphocytes Absolute Auto 1.48 K/mm3 (0.9-3.2); Lymphocytes Percent Auto 18.7 % (18.3-44.2); Mean Corpuscular HGB Conc 33.9 g/dl (32-36); Mean Corpuscular Hemoglobin 34.6 pg (26-34); Mean Corpuscular Volume 102.2 fl (80-100); Mean Platelet Volume 10.2 fl (7.4-10.4); Monocytes Percent Auto 12.3 % (2.6-8.5); Neutrophils Absolute Auto 5.1 K/mm3 (1.3-6.7); Neutrophils Percent Auto 64.6 % (45.5-73.1); Platelet Count Result 176 k/mm3 (150-375); Red Blood Count 3.64 M/mm3 (4.6-6.20); White Blood Count 7.9 K/mm3 (4.5-10.0)
[2021-01-25 08:36] LABS: Alanine Aminotransferase 33 U/L (4-50); Alkaline Phosphatase 82 U/L (38-126); Anion Gap 6 mmol/L (8-16); Aspartate Amino Transferase 33 U/L (17-59); Bilirubin,Total 0.6 mg/dL (0.2-1.3); Blood Urea Nitrogen 8 mg/dL (9-20); Calcium 9.3 mg/dL (8.4-10.2); Carbon Dioxide 29 mmol/L (22-30); Chloride 101 mmol/L (98-107); Cholesterol 173 mg/dL (0-200); Estimated Glomerular Filt Rate > 60; Glucose 112 mg/dL (65-110); HDL Direct 79 mg/dL; Potassium 3.8 mmol/L (3.4-5.0); Sodium 136 mmol/L (137-145); Triglycerides 71 mg/dL (<150)
[2021-01-25 08:47] LABS: LDL Cholesterol Direct 74 mg/dL
[2021-01-25 08:51] LABS: Add Urine Microscopic? YES; Appearance Urine Cloudy (Clear); Bacteria Urine Trace /hpf; Bilirubin Urine Negative (Negative); Blood Urine Negative (Negative); Color Urine Yellow (Yellow); Glucose Urine UA Negative (Negative); Ketones Urine Negative (Negative); Leukocyte Esterase Ur Negative LEU/UL (NEGATIVE); Mucus Urine Few /lpf; Nitrate Urine Negative (Negative); Protein Urine Negative (Negative); Specific Grav Ur 1.017 (1.001-1.035); Urobilinogen Urine Negative mg/dL (<2.0); WBC Urine 0-3 /hpf (0-3)
[2021-01-25 09:04] LABS: Thyroid Stimulating Hormone 0.544 uIU/mL (0.465-4.680)
[2021-01-25 09:40] LABS: Folic Acid 14.5 ng/mL (2.76->20)
== END 2021-01-25 08:03 | disposition home or self-care (01) ==
PROVIDERS: PCP Family Medicine; Visit Provider Physician Assistant
DX: G62.9 Polyneuropathy, unspecified (principal); E87.6 Hypokalemia; F10.10 Alcohol abuse, uncomplicated; R29.6 Repeated falls; D72.819 Decreased white blood cell count, unspecified; E87.1 Hypo-osmolality and hyponatremia; E53.8 Deficiency of other specified B group vitamins; R11.2 Nausea with vomiting, unspecified; F41.1 Generalized anxiety disorder
CPT/HCPCS: 36415; 80053; 80061; 81001; 82607; 82746; 84443; 85025; 87086

== ENCOUNTER 2021-03-12 13:37 | Outpatient (CLI) | payer OTHER, SELFPAY ==
[2021-03-12 14:14] LABS: Hemoglobin A1C 4.9 % (<5.7)
[2021-03-12 14:26] LABS: Add Urine Microscopic? YES; Appearance Urine Cloudy (Clear); Bilirubin Urine Negative (Negative); Blood Urine 1+ (Negative); Color Urine Amber (Yellow); Glucose Urine UA Negative (Negative); Hyaline Casts Urine 50+ /lpf; Ketones Urine Negative (Negative); Leukocyte Esterase Ur Negative LEU/UL (NEGATIVE); Mucus Urine Heavy /lpf; Nitrate Urine Negative (Negative); Protein Urine Negative (Negative); Specific Grav Ur 1.019 (1.001-1.035)
== END 2021-03-12 13:38 | disposition home or self-care (01) ==
PROVIDERS: PCP Family Medicine; Visit Provider Physician Assistant
DX: R31.9 Hematuria, unspecified (principal); R73.01 Impaired fasting glucose
CPT/HCPCS: 36415; 81001; 83036; 87086; 87088

== ENCOUNTER 2021-05-21 07:55 | Outpatient (CLI) | payer OTHER, SELFPAY ==
--- NOTE | ~2021-05-21 | US_ITS ---
EXAMINATION: US thyroid DATE: 05/21/2021 09:02 INDICATION: Nontoxic single thyroid nodule TECHNIQUE: Multiple ultrasound images of the thyroid were obtained. COMPARISON: None. FINDINGS: The right thyroid lobe measures 5.6 x 2.6 x 2.0 cm. The left thyroid lobe measures 5.5 x 2.8 x 1.9 c m. 7-8 mm very hypoechoic solid nodule which is wider than tall with smooth margins and without echo genic foci at the inferior right thyroid (TI-RADS 4, moderately suspicious , FNA if >=1.5 cm, annual followup is >=1 cm). In the inferior left thyroid there is a 1.6 cm solid hypoechoic nodule which is taller than wide and with either smooth or ill-defined margins and without echogenic foci (TI-RADS 5, highly suspicious , FNA if >=1.0 cm, annual followup is >0.5 cm). There is normal echotexture, echog enicity and vascular flow throughout the remainder of the thyroid gland. IMPRESSION: 1. Couple bilateral thyroid nodules, the larger 1.6 cm TI RADS 5 left thyroid nodule meets criteria f or ultrasound-guided biopsy which would be recommended. Reviewed, dictated and finalized at location A. ATRIC SURGEON IMPRESSION: 1. Couple bilateral thyroid nodules, the larger 1.6 cm TI RADS 5 left thyroid n odule meets criteria for ultrasound-guided biopsy which would be recommended.
== END 2021-05-21 07:56 | disposition home or self-care (01) ==
LOC: ANHIMG 07:58
PROVIDERS: PCP Family Medicine; Visit Provider Physician Assistant
DX: E04.2 Nontoxic multinodular goiter (principal)
CPT/HCPCS: 76536

== ENCOUNTER 2021-08-05 08:37 | Outpatient (CLI) | payer OTHER, SELFPAY ==
--- NOTE | ~2021-08-05 | US_ITS ---
EXAMINATION: US venous doppler [facility] DATE: 08/05/2021 09:33 INDICATION: Acute embolism and thrombosis of the right calf muscle TECHNIQUE: Grayscale ultrasound images without and with compression and Doppler ultrasound images of the bilateral lower extremity veins were obtained. COMPARISON: 04/24/2020 FINDINGS: The visualized portions of right common femoral vein, profunda (deep) femoral vein, femoral vein, pop liteal vein, posterior tibial veins, peroneal veins, lesser saphenous vein and greater saphenous vein outflow are patent. The visualized portions of left common femoral vein, profunda femoral vein, femoral vein, popliteal v ein, posterior tibial veins, peroneal veins, lesser saphenous vein and greater saphenous vein outflow are patent. IMPRESSION: 1. No deep venous thrombosis in either lower limb. Reviewed, dictated and finalized at location A.
== END 2021-08-05 08:38 | disposition home or self-care (01) ==
PROVIDERS: PCP Family Medicine; Visit Provider Physician Assistant
DX: I82.461 Acute embolism and thrombosis of right calf muscular vein (principal); R60.0 Localized edema
CPT/HCPCS: 93970

== ENCOUNTER 2021-09-16 08:11 | Outpatient (CLI) | payer OTHER, SELFPAY ==
--- NOTE | ~2021-09-16 | US_ITS ---
EXAMINATION: US FNA w image guidance DATE: 09/16/2021 10:30 INDICATION: Nontoxic single thyroid nodule TECHNIQUE: A time-out was performed to verify the patient's name, date of , and procedure to be performed . The procedure and its benefits and risks were discussed with the patient. Risks specifically discus sed included bleeding and infection. The patient understood the risks and agreed to proceed. The neck was prepped and draped in the usual sterile manner. 3 mL 1% lidocaine was used for local anesthesia . 6 passes were made with a 25G needle into the lesion. Appropriate needle location was documented with continuous sonographic guidance. A sterile bandage was applied. There were no immediate compli cations. FINDINGS: Grayscale ultrasound images demonstrate biopsy needles advanced into a 1.8 cm solid hypoechoic nodule in the deep inferior left thyroid. IMPRESSION: 1. Successful ultrasound-guided fine needle aspiration of a 1.8 cm left thyroid nodule of concern. Reviewed, dictated and finalized at location A. IMPRESSION: 1. Successful ultrasound-guided fine needle aspiration of a 1.8 cm left thyroi d nodule of concern.
[2021-09-16 08:57] LABS: Basophils Absolute Auto 0.1 K/mm3 (0.0-0.1); Basophils Percent Auto 1.3 % (0.2-1.2); Eosinophils Absolute Auto 0.2 K/mm3 (0-0.3); Eosinophils Percent Auto 3.2 % (0-4.4); Hematocrit 42.4 % (42.0-52.0); Hemoglobin 14.2 g/dL (14.0-18.0); Immature Granulocyte Absolute 0.04 K/mm3 (0.00-0.031); Immature Granulocyte Percent A 0.7 % (0-0.5); Lymphocytes Absolute Auto 1.07 K/mm3 (0.9-3.2); Mean Corpuscular HGB Conc 33.5 g/dl (32-36); Mean Corpuscular Hemoglobin 32.9 pg (26-34); Mean Corpuscular Volume 98.4 fl (80-100); Mean Platelet Volume 10.3 fl (7.4-10.4); Monocytes Absolute Auto 0.7 K/mm3 (0.1-0.6); Monocytes Percent Auto 13.6 % (2.6-8.5); Neutrophils Absolute Auto 3.3 K/mm3 (1.3-6.7); Neutrophils Percent Auto 61.2 % (45.5-73.1); Platelet Count Result 193 k/mm3 (150-375); Red Blood Count 4.31 M/mm3 (4.6-6.20); Red Cell Distribution Width 11.8 % (11.5-14.5); White Blood Count 5.4 K/mm3 (4.5-10.0)
[2021-09-16 09:10] LABS: Chloride 103 mmol/L (98-107)
[2021-09-16 09:23] LABS: LDL Cholesterol Direct 88 mg/dL
[2021-09-16 09:25] LABS: Alanine Aminotransferase 15 U/L (6-50); Alkaline Phosphatase 109 U/L (38-126); Anion Gap 9 mmol/L (8-16); Aspartate Amino Transferase 23 U/L (17-59); Bilirubin,Total 0.9 mg/dL (0.2-1.3); Blood Urea Nitrogen 10 mg/dL (9-20); Calcium 9.2 mg/dL (8.4-10.2); Carbon Dioxide 23 mmol/L (22-30); Cholesterol 185 mg/dL (0-200); Estimated Glomerular Filt Rate > 60; Glucose 115 mg/dL (65-110); HDL Direct 57 mg/dL; Potassium 4.1 mmol/L (3.4-5.0); Sodium 135 mmol/L (137-145); Triglycerides 150 mg/dL (<150)
[2021-09-16 09:34] LABS: Iron 98 ug/dL (49-181)
[2021-09-16 09:43] LABS: Percent Iron Saturation 29 % (20-50)
[2021-09-16 09:44] LABS: Thyroid Stimulating Hormone 0.526 uIU/mL (0.465-4.680)
[2021-09-16 09:58] LABS: Hemoglobin A1C 5.3 % (<5.7)
[2021-09-16 10:25] LABS: Folic Acid > 20.0 ng/mL (2.76->20)
== END 2021-09-16 08:12 | disposition home or self-care (01) ==
PROVIDERS: Physician Assistant; PCP Family Medicine; Visit Provider Otolaryngology
DX: R74.01 Elevation of levels of liver transaminase levels (principal); R73.01 Impaired fasting glucose; I10 Essential (primary) hypertension; G62.9 Polyneuropathy, unspecified; F51.04 Psychophysiologic insomnia; F41.1 Generalized anxiety disorder; E87.1 Hypo-osmolality and hyponatremia; E53.8 Deficiency of other specified B group vitamins; F10.10 Alcohol abuse, uncomplicated; D72.819 Decreased white blood cell count, unspecified; D64.9 Anemia, unspecified; C61 Malignant neoplasm of prostate; E04.1 Nontoxic single thyroid nodule
CPT/HCPCS: 10005; 36415; 80053; 80061; 82607; 82728; 82746; 83036; 83540; 83550; 84443; 85025; 88173; 88305

== ENCOUNTER 2021-09-20 01:35 | Day surgery (SDC) | payer OTHER, SELFPAY ==
[2021-06-24 13:40] VITALS: BMI 31.9
--- NOTE | 2021-07-05 14:23 | PC.NURSE ---
Spoke with pt re rescheduled colonoscopy. Confirmed no changes to home medications or health history since previous PAT call completed. Informed pt of updated date/times of colonoscopy. Pt verbalized understanding. Reiterated to pt the need for a company driver home from procedure. Pt stated he is still trying to find a ride and if he is unable he will call Dr. Stanley's office to reschedule if needed.
[2021-09-03 09:35] VITALS: BMI 31.4
--- NOTE | 2021-09-20 08:35 | WPDANESEPPF ---
Anes - Initial Pre Proc Eval Procedure: Operation Date: 09/20/21 10:00 Proposed Procedures p Screening Colonoscopy - Dilan Stanley MD Date/Time: 09/20/21 08:35 Surgeon: Dilan Stanley MD Pre Op Diagnosis: neoplasm screening Patient Data Age: 61 Gender: M Height: 1.88 m Weight: 111 kg Allergies Allergy/AdvReac Type Severity Reaction Status Date / Time No Known Allergies Allergy Verified 09/03/21 09:29 Home Medications Medication Instructions Recorded Confirmed Type Lactobacillus rhamnosus GG 10 1 cap PO DAILY 01/08/20 09/20/21 History billion cell capsule (Culturelle) foam bandage 4 X 4 (Mepilex) #5 ea 02/04/20 08/25/21 Rx cyanocobalamin (vitamin B-12) 1,000 mcg PO QAM #90 tabs 03/21/20 09/20/21 Rx 1,000 mcg tablet (Vitamin B-12) buspirone 5 mg tablet 5 mg PO TID #90 tabs 03/22/21 09/20/21 Rx losartan 100 mg tablet 100 mg PO DAILY #30 tabs 03/23/21 09/20/21 Rx carvedilol 25 mg tablet (Coreg) 25 mg PO Q12HR #180 tabs 07/22/21 09/20/21 Rx trazodone 100 mg tablet 100 mg PO QHS #90 tabs 07/26/21 09/20/21 Rx citalopram 20 mg tablet 20 mg PO DAILY #90 tabs 09/03/21 09/20/21 Rx doxazosin 2 mg tablet 2 mg PO HS #90 tabs 09/22/21 Rx Patient hx anesthesia problems: none Family hx anesthesia problems: none Results Review: All pre-operative results and documents have been reviewed as part of the pre-operative evaluation. [facility] Past Medical History Medical History (Updated 09/20/21 @ 09:23 by Dilan Stanley MD) Alcohol abuse Anxiety BMI 29.0-29.9,adult Closed fracture of right distal tibia Tibial plafond January 2020 Depression Fracture of metatarsal of left foot, closed Frequent falls Hypertension Laceration of occipital region of scalp Prostate cancer Syncope and collapse Surgical History Surgical History History of appendectomy Family History Family History Father Malignant neoplasm of prostate Mother COPD (chronic obstructive pulmonary disease) Other Family history of malignant neoplasm Heart disease Social History Social History (Updated 08/25/21 @ 08:02 by Tabby Reese) Social History: Smoking packs per day: 1 Smoking cigarettes per day: 20.0 Years smoked: 30 Smoking pack-years: 30.00 Smoking status: Former smoker Tobacco type: cigarettes Second hand tobacco smoke exposure: No Smoking end date: 04/03/96 Alcohol intake: current Drinks per week: 35 Substance use: never Substance use type: does not use 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, [employer] Gender identity (if verbalized by the patient): Male Sexual Orientation (if Verbalized by the Patient): Straight or Heterosexual Spiritual care concerns: No Anes - Eval Final PreProcedure Day of Procedure 09/20/21 08:35 Patient weight: obese Heart: regular rate and rhythm Lungs: clear to auscultation Airway: Mallampati scale class II Neurological: alert and oriented Last oral intake: >/= 8 hours ASA classification: III Emergent: no Anesthetic plan: proceed Anesthesia type and monitoring: general GIVS and standard monitoring Results Review: All pre-operative results and documents have been reviewed as part of the pre-operative evaluation. Informed Consent: The patient's anesthetic plan and its attendant risks and benefits were discussed with the patient/family/POA. Questions were solicited and answers provided to the satisfaction of the patient/family/POA.
[2021-09-20 08:54] VITALS: BP 185/104; PULSE 93; RESP 20; TEMP 36.4; O2SAT 93; BMI 35.4
[2021-09-20] MEDS: LACTATED RINGERS 1,000 ML 150 ML IV CONT (09:09)
--- NOTE | 2021-09-20 09:22 | WPDGICN ---
Assessment and Plan Assessment and plan (1) Encounter for screening colonoscopy: Code(s): Z12.11 - Encounter for screening for malignant neoplasm of colon Status: Acute Assessment and Plan: Patient presents for neoplasia screening. He appears to be at average risk for colon polyps. Further recommendations will be given after endoscopy. (2) Diverticulosis: Code(s): K57.90 - Diverticulosis of intestine, part unspecified, without perforation or abscess without bleeding Status: Acute Assessment and Plan: Patient gives a history of diverticulosis. Distant history of bleeding. Would recommend high-fiber diet. GI Consult Note Consult date/time: 09/20/21 09:22 Reason for consult: Neoplasia screening. HPI: Cynthia Maldonado is a 61 year old male Presents for screening colonoscopy. Patient's current weight appetite and bowel movements are normal. He denies abdominal pain. Patient has had no recent bleeding. Patient does give a history of a distant colonoscopy that revealed diverticular bleeding. He states that tattoo was placed at that time. He has never been identified as having polyps. He has no family history of polyps or colon cancer that he is aware of. Patient presents today for neoplasia screening colonoscopy. Review of Systems Review of Systems: Review of systems noncontributory. [facility] Past Medical History Medical History (Updated 09/20/21 @ 09:23 by Dilan Stanley MD) Alcohol abuse Anxiety BMI 29.0-29.9,adult Closed fracture of right distal tibia Tibial plafond January 2020 Depression Fracture of metatarsal of left foot, closed Frequent falls Hypertension Laceration of occipital region of scalp Prostate cancer Syncope and collapse Surgical History Surgical History History of appendectomy Family History Family History Father Malignant neoplasm of prostate Mother COPD (chronic obstructive pulmonary disease) Other Family history of malignant neoplasm Heart disease Social History Social History (Updated 08/25/21 @ 08:02 by Tabby Reese) Social History: Smoking packs per day: 1 Smoking cigarettes per day: 20.0 Years smoked: 30 Smoking pack-years: 30.00 Smoking status: Former smoker Tobacco type: cigarettes Second hand tobacco smoke exposure: No Smoking end date: 04/03/96 Alcohol intake: current Drinks per week: 35 Substance use: never Substance use type: does not use Living arrangements: alone 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, [employer] Gender identity (if verbalized by the patient): Male Sexual Orientation (if Verbalized by the Patient): Straight or Heterosexual Spiritual care concerns: No Meds Home Medications and Allergies Home Medications Medication Instructions Recorded Confirmed Type Lactobacillus rhamnosus GG 10 1 cap PO DAILY 01/08/20 09/20/21 History billion cell capsule (Culturelle) foam bandage 4 X 4 (Mepilex) #5 ea 02/04/20 08/25/21 Rx cyanocobalamin (vitamin B-12) 1,000 mcg PO QAM #90 tabs 03/21/20 09/20/21 Rx 1,000 mcg tablet (Vitamin B-12) buspirone 5 mg tablet 5 mg PO TID #90 tabs 03/22/21 09/20/21 Rx losartan 100 mg tablet 100 mg PO DAILY #30 tabs 03/23/21 09/20/21 Rx doxazosin 2 mg tablet 2 mg PO HS #90 tabs 06/28/21 09/20/21 Rx carvedilol 25 mg tablet (Coreg) 25 mg PO Q12HR #180 tabs 07/22/21 09/20/21 Rx trazodone 100 mg tablet 100 mg PO QHS #90 tabs 07/26/21 09/20/21 Rx citalopram 20 mg tablet 20 mg PO DAILY #90 tabs 09/03/21 09/20/21 Rx Allergies Allergy/AdvReac Type Severity Reaction Status Date / Time No Known Allergies Allergy Verified 09/03/21 09:29 Vital Signs Vital Signs - 24 hr 09/20/21 08:54 Temperature 97.5 F L Pulse Rate 93 Respiratory Rate 20 Blood Pressure 185/104 H Pulse Oximetry 93 Oxygen Del
[2021-09-20 10:00] VITALS: BP 156/80; PULSE 85; RESP 17; O2SAT 97
[2021-09-20 10:10] VITALS: BP 174/89; PULSE 83; RESP 12; O2SAT 97
[2021-09-20 10:20] VITALS: BP 179/89; PULSE 83; RESP 17; O2SAT 97
== END 2021-09-20 10:26 | disposition home or self-care (01) ==
PROVIDERS: PCP Family Medicine; Visit Provider Internal Medicine Gastroenterology
PROC: 0DJD8ZZ Inspection of Lower Intestinal Tract, Via Natural or Artificial Opening Endoscopic (ICD-10-PCS; CPT 45378; principal; 2021-09-20 10:00)
DX: Z12.11 Encounter for screening for malignant neoplasm of colon (principal); K57.30 Diverticulosis of large intestine without perforation or abscess without bleeding; K64.8 Other hemorrhoids; K63.5 Polyp of colon; D12.2 Benign neoplasm of ascending colon; F41.9 Anxiety disorder, unspecified; F32.A Depression, unspecified; Z91.81 History of falling; Z87.891 Personal history of nicotine dependence; E66.9 Obesity, unspecified; Z68.35 Body mass index [BMI] 35.0-35.9, adult
CPT/HCPCS: 45385; 88305; J2704; J7120

== ENCOUNTER 2021-09-21 07:47 | Outpatient (CLI) | payer OTHER, SELFPAY ==
--- NOTE | ~2021-09-21 | US_ITS ---
EXAMINATION: US right upper quadrant DATE: 09/21/2021 08:40 INDICATION: Fatty change of the liver TECHNIQUE: Multiple grayscale and Doppler ultrasound images of the abdomen were obtained. COMPARISON: 01/08/2020 FINDINGS: Bowel gas obscures visualization of the pancreas. The visualized portions of the pancreas a re unremarkable. The liver demonstrates increased echogenicity, heterogenous echotexture, and decreas ed through transmission. No surface nodularity. Normal hepatopetal flow in the main portal vein. The gallbladder is normal with no abnormal wall thickening, pericholecystic fluid or stones. The normal c ommon bile duct measures 4 mm. There was no sonographic Orellana sign. IMPRESSION: 1. Diffuse hepatic steatosis. Reviewed, dictated and finalized at location A.
== END 2021-09-21 07:48 | disposition home or self-care (01) ==
PROVIDERS: PCP Family Medicine; Visit Provider Physician Assistant
DX: K76.0 Fatty (change of) liver, not elsewhere classified (principal); F10.10 Alcohol abuse, uncomplicated
CPT/HCPCS: 76705

== ENCOUNTER 2021-10-14 09:36 | Outpatient (CLI) | payer OTHER, SELFPAY ==
--- NOTE | ~2021-10-14 | US_ITS ---
EXAMINATION: US FNA w image guidance DATE: 10/14/2021 10:58 INDICATION: Left thyroid nodule. TECHNIQUE: The procedure and its benefits and risks were discussed with the patient. Risks specifically discusse d included bleeding. The patient verbalized understanding of the risks and agreed to proceed. The nec k was prepped and draped in the usual sterile manner. 1% lidocaine was used for local anesthesia. 7 passes were made with a 25G needle into the lesion under ultrasound guidance. There were no immedia te complications. FINDINGS: Grayscale ultrasound images demonstrate needles advanced into a 1.6 cm nodule in left thyroid lobe fo r biopsy. IMPRESSION: 1. Ultrasound-guided fine needle aspiration of a left thyroid nodule. Reviewed, dictated and finalized at location A.
== END 2021-10-14 09:37 | disposition home or self-care (01) ==
LOC: ANHIMG 09:39
PROVIDERS: PCP Family Medicine; Visit Provider Otolaryngology
DX: E04.1 Nontoxic single thyroid nodule (principal)
CPT/HCPCS: 10005; 88173; 88305

== ENCOUNTER 2021-12-01 09:11 | Outpatient (CLI) | payer OTHER, SELFPAY ==
--- NOTE | ~2021-12-01 | US_ITS ---
EXAMINATION: US FNA w image guidance DATE: 12/01/2021 10:20 INDICATION: Left thyroid nodule TECHNIQUE: The procedure and its benefits and risks were discussed with the patient. Risks specifically discusse d included bleeding. The patient verbalized understanding of the risks and agreed to proceed. The nec k was prepped and draped in the usual sterile manner. 1% lidocaine was used for local anesthesia. 8 passes were made with a 25G needle into the lesion under ultrasound guidance. There were no immedia te complications. FINDINGS: Grayscale ultrasound images demonstrate needles advanced into a 1.6 cm nodule in left thyroid lobe fo r biopsy. IMPRESSION: 1. Ultrasound-guided fine needle aspiration of a left thyroid nodule. Reviewed, dictated and finalized at location A.
== END 2021-12-01 09:12 | disposition home or self-care (01) ==
PROVIDERS: PCP Family Medicine; Visit Provider Otolaryngology
DX: E04.1 Nontoxic single thyroid nodule (principal)
CPT/HCPCS: 10005; 88173; 88305

== ENCOUNTER 2022-02-27 08:39 | Emergency (ER) | payer OTHER, SELFPAY ==
--- NOTE | ~2022-02-27 | US_ITS ---
US venous doppler [facility] DATE: 02/27/2022 09:54 INDICATION: Edema TECHNIQUE: Real-time and color flow imaging and Doppler analysis of the veins of the lower extremitie s COMPARISON: 08/05/2021 venous duplex examination of the lower extremities FINDINGS: The greater saphenous veins are patent. There is spontaneous and phasic flow and normal aug mentation and color flow signal and normal compression of the common femoral, femoral and popliteal v eins of both legs. Bilateral posterior tibial and peroneal veins are not visualized, apparently due to edema. IMPRESSION: The posterior tibial and peroneal veins are not visualized, apparently due to edema Otherwise no evidence of deep venous thrombosis of the lower extremities Reviewed, dictated and finalized at [facility]. Reviewed, dictated and finalized at location A. Y DRIER OPERATOR HELPER IMPRESSION: The posterior tibial and peroneal veins are not visualized, apparen tly due to edema Otherwise no evidence of deep venous thrombosis of the lower extremities
[2022-02-27 08:45] VITALS: BP 184/67; PULSE 88; RESP 18; TEMP 36.5; O2SAT 98
--- NOTE | 2022-02-27 10:49 | ED.GENADULT ---
HPI - General Adult General Chief complaint: Unspecified Stated complaint: incision drainage Time Seen by Provider: 02/27/22 08:52 History of Present Illness HPI narrative: Patient is a 61-year-old male who presents ER with concerns for possible wound infection. Patient underwent robotic prostatectomy on 02/16/2022 at [facility]. He has been doing well at home. He surgical team and they recommended she be evaluated. Patient also notes edema to the abdominal wall in the lower extremities since he has had surgery. He has not been up and ambulating due to having a catheter in but that is recently been removed. No calf pain. No chest pain or shortness of breath. Today that he had some clear yellow drainage weeping from a supraumbilical trocar site. Additionally he had some blood and yellow fluid come out of a trocar site to the left abdomen. No fevers or chills or sweats. No tenderness. No overt pus Related Data Home Medications Medication Instructions Recorded Confirmed Lactobacillus rhamnosus GG 10 1 cap PO DAILY 01/08/20 11/05/21 billion cell capsule (Culturelle) Allergies Allergy/AdvReac Type Severity Reaction Status Date / Time No Known Allergies Allergy Verified 11/05/21 07:35 Review of Systems Review of Systems: All systems reviewed & are unremarkable except as noted in HPI and below Constitutional: Constitutional: Denies chills and Denies fever(s) Gastrointestinal: Gastrointestinal: Denies abdominal pain, Denies nausea and Denies vomiting Genitourinary: Genitourinary: Denies hematuria, Denies dysuria and Denies flank pain Musculoskeletal: Musculoskeletal: Denies arthralgias, Denies joint swelling and Denies muscle cramps Comments: lower extremity edema Integumentary/Breasts: Comments: Trocar sites to abdominal wall with drainage. [facility] Past Medical History Medical History Alcohol abuse Anxiety BMI 29.0-29.9,adult Closed fracture of right distal tibia Tibial plafond January 2020 Depression Fracture of metatarsal of left foot, closed Frequent falls Hypertension Laceration of occipital region of scalp Prostate cancer Syncope and collapse Surgical History Surgical History History of appendectomy Family History Family History Father Malignant neoplasm of prostate Mother COPD (chronic obstructive pulmonary disease) Other Family history of malignant neoplasm Heart disease Social History Social History Social History: Smoking packs per day: 1 Smoking cigarettes per day: 20.0 Years smoked: 30 Smoking pack-years: 30.00 Smoking status: Former smoker Tobacco type: cigarettes Second hand tobacco smoke exposure: No Smoking end date: 04/03/96 Alcohol intake: current Drinks per week: 35 Substance use: never Substance use type: does not use 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 HEAD: Normocephalic, atraumatic. EYES: PERRL and EOMI. ENT: Mucous membranes moist. CHEST: Clear to auscultation. No respiratory distress. HEART: Regular rate and rhythm. Normal peripheral pulses. ABDOMEN: Soft, nontender, nondistended. EXTREMITIES: Normal range of motion. No edema. SKIN: Warm, dry. The trocar sites abdominal wall still have surgical glue over them. They appear to be well-healing without any surrounding cellulitis. The supraumbilical site does have some scant serous discharge. 1 to the left abdomen also has some dried blood from likely hematoma discharge. NEURO: Alert a
[2022-02-27 10:56] VITALS: BP 158/80; PULSE 68; RESP 18; O2SAT 98
== END 2022-02-27 11:15 | disposition home or self-care (01) ==
PROVIDERS: Emergency Provider Emergency Medicine; PCP Family Medicine
DX: L76.34 Postprocedural seroma of skin and subcutaneous tissue following other procedure (principal); L76.32 Postprocedural hematoma of skin and subcutaneous tissue following other procedure; R60.0 Localized edema; C61 Malignant neoplasm of prostate; I10 Essential (primary) hypertension; Z87.891 Personal history of nicotine dependence; Z90.79 Acquired absence of other genital organ(s); Y83.6 Removal of other organ (partial) (total) as the cause of abnormal reaction of the patient, or of later complication, without mention of misadventure at the time of the procedure
CPT/HCPCS: 93970; 99284

== ENCOUNTER 2022-03-17 15:46 | Outpatient (CLI) | payer OTHER, SELFPAY ==
[2022-03-17 16:32] LABS: Alanine Aminotransferase 28 U/L (6-50); Aspartate Amino Transferase 60 U/L (17-59)
== END 2022-03-17 15:47 | disposition home or self-care (01) ==
LOC: ANHLAB 15:47
PROVIDERS: PCP Podiatrist Foot & Ankle Surgery; Visit Provider Podiatrist Foot & Ankle Surgery
DX: B35.1 Tinea unguium (principal)
CPT/HCPCS: 36415; 84450; 84460

== ENCOUNTER 2022-09-02 15:32 | Outpatient (CLI) | payer OTHER, SELFPAY ==
[2022-09-02 15:49] LABS: Basophils Absolute Auto 0.1 K/mm3 (0.0-0.1); Basophils Percent Auto 0.9 % (0.2-1.2); Eosinophils Absolute Auto 0.2 K/mm3 (0-0.3); Eosinophils Percent Auto 3.3 % (0-4.4); Hematocrit 42.2 % (42.0-52.0); Hemoglobin 14.3 g/dL (14.0-18.0); Immature Granulocyte Absolute 0.03 K/mm3 (0.00-0.031); Immature Granulocyte Percent A 0.5 % (0-0.5); Lymphocytes Absolute Auto 1.04 K/mm3 (0.9-3.2); Lymphocytes Percent Auto 15.6 % (18.3-44.2); Mean Corpuscular HGB Conc 33.9 g/dl (32-36); Mean Corpuscular Hemoglobin 32.7 pg (26-34); Mean Corpuscular Volume 96.6 fl (80-100); Monocytes Absolute Auto 0.7 K/mm3 (0.1-0.6); Monocytes Percent Auto 10.1 % (2.6-8.5); Neutrophils Absolute Auto 4.6 K/mm3 (1.3-6.7); Neutrophils Percent Auto 69.6 % (45.5-73.1); Platelet Count Result 179 k/mm3 (150-375); Red Blood Count 4.37 M/mm3 (4.6-6.20); Red Cell Distribution Width 12.1 % (11.5-14.5); White Blood Count 6.7 K/mm3 (4.5-10.0)
[2022-09-02 15:59] LABS: Hemoglobin A1C 5.4 % (<5.7); Iron 104 ug/dL (49-181)
[2022-09-02 16:01] LABS: Alanine Aminotransferase 30 U/L (6-50); Albumin Level 4.2 g/dL (3.5-5.1); Alkaline Phosphatase 84 U/L (38-126); Anion Gap 5 mmol/L (8-16); Aspartate Amino Transferase 40 U/L (17-59); Bilirubin,Total 0.8 mg/dL (0.2-1.3); Blood Urea Nitrogen 18 mg/dL (9-20); Carbon Dioxide 31 mmol/L (22-30); Chloride 100 mmol/L (98-107); Estimated Glomerular Filt Rate > 60; Glucose 122 mg/dL (65-110); Potassium 3.6 mmol/L (3.4-5.0); Sodium 136 mmol/L (137-145)
[2022-09-02 16:10] LABS: Percent Iron Saturation 37 % (20-50)
[2022-09-02 17:11] LABS: Folic Acid > 20.0 ng/mL (2.76->20)
== END 2022-09-02 15:33 | disposition home or self-care (01) ==
PROVIDERS: PCP Family Medicine; Referring Provider Podiatrist Foot & Ankle Surgery; Visit Provider Physician Assistant
DX: D64.9 Anemia, unspecified (principal); E53.8 Deficiency of other specified B group vitamins; E87.1 Hypo-osmolality and hyponatremia; I10 Essential (primary) hypertension; R73.01 Impaired fasting glucose; R74.01 Elevation of levels of liver transaminase levels; B35.1 Tinea unguium
CPT/HCPCS: 36415; 80053; 82607; 82728; 82746; 83036; 83540; 83550; 85025

== ENCOUNTER 2023-01-05 10:22 | Outpatient (CLI) | payer OTHER, SELFPAY ==
[2023-01-05 10:56] LABS: Alanine Aminotransferase 39 U/L (6-50); Aspartate Amino Transferase 57 U/L (17-59)
== END 2023-01-05 10:23 | disposition home or self-care (01) ==
PROVIDERS: PCP Family Medicine; Visit Provider Podiatrist Foot & Ankle Surgery
DX: B35.1 Tinea unguium (principal)
CPT/HCPCS: 36415; 84450; 84460

== ENCOUNTER 2023-03-09 09:12 | Outpatient (CLI) | payer OTHER, SELFPAY ==
--- NOTE | ~2023-03-09 | XR_ITS ---
Lumbosacral Spine: AP and lateral views Clinical History: Pain Findings: The normal lordotic curve is maintained. There is mild compression deformity versus Schmorl 's node at the superior endplate of L2, likely chronic. There are mild facet joint degenerative lomeli es of the lumbar spine. There are anterior bridging osteophytes from L1 through L4. The sacroiliac ted ints are normally outlined. Impression: Mild chronic compression deformity of L2 versus Schmorl's noted. Mild degenerative spondylosis, as above. Reviewed, dictated and finalized at location [facility]. TH AND GARLAND MAKER HAND Impression: Mild chronic compression deformity of L2 versus Schmorl's noted. Mild degenerative spondylosis, as above.
--- NOTE | ~2023-03-09 | XR_ITS ---
XR hip BI 2V w AP pelvis 03/09/2023 09:38 Indication: Bilateral hip pain. Status post fall one year ago. Procedure: AP pelvis and 2 views each hip Comparison: No prior studies for comparison. Findings: There is mild-moderate bilateral symmetric osteoarthritis of the hips. Pelvic rings are int act. Sacral foramen are symmetric. No acute fracture or traumatic malalignment. Impression: 1: Mild-moderate symmetric osteoarthritis of the hips. Reviewed, dictated and finalized at location L. TING MACHINE OPERATOR Impression: 1: Mild-moderate symmetric osteoarthritis of the hips.
[2023-03-09 11:35] LABS: Alanine Aminotransferase 31 U/L (6-50); Alkaline Phosphatase 85 U/L (38-126); Anion Gap 7 mmol/L (8-16); Aspartate Amino Transferase 38 U/L (17-59); Bilirubin,Total 0.7 mg/dL (0.2-1.3); Blood Urea Nitrogen 13 mg/dL (9-20); Calcium 9.4 mg/dL (8.4-10.2); Carbon Dioxide 32 mmol/L (22-30); Chloride 99 mmol/L (98-107); Estimated Glomerular Filt Rate > 60; Glucose 92 mg/dL (65-110); Potassium 3.6 mmol/L (3.4-5.0); Sodium 138 mmol/L (137-145)
[2023-03-09 12:35] LABS: Folic Acid 15.5 ng/mL (2.76->20)
[2023-03-09 13:43] LABS: Hemoglobin A1C 5.3 % (<5.7)
== END 2023-03-09 09:13 | disposition home or self-care (01) ==
LOC: ANHIMG 09:14
PROVIDERS: PCP Family Medicine; Visit Provider Physician Assistant
DX: M16.0 Bilateral primary osteoarthritis of hip (principal); M43.06 Spondylolysis, lumbar region; M43.8X6 Other specified deforming dorsopathies, lumbar region; I10 Essential (primary) hypertension; E53.8 Deficiency of other specified B group vitamins; R73.01 Impaired fasting glucose
CPT/HCPCS: 36415; 72100; 73521; 80053; 82607; 82746; 83036

== ENCOUNTER 2023-03-24 06:42 | Outpatient (CLI) | payer OTHER, SELFPAY ==
--- NOTE | ~2023-03-24 | MR_ITS ---
MRI of the lumbar spine Clinical History: Back pain Technique: Axial T2-weighted images, and sagittal T1-weighted, T2-weighted, and T2 fat-sat images wer e acquired. Findings: There is no acute fracture or subluxation lumbar spine. There is chronic mild compression d eformity versus Schmorl's node at superior endplate of L2. No suspicious bone marrow signal abnormali ty seen. At L1-L2, there is mild degenerative change. There is no significant disc bulge. There is mild facet arthropathy. No central canal stenosis or neural foraminal narrowing. At L2-L3, there is minimal disc bulge with small annular fissure. No central canal stenosis or neural foraminal narrowing. There is mild to moderate facet arthropathy. At L3-L4, there is mild diffuse disc bulge with moderate to advanced facet arthropathy. No central ca nal stenosis. There is moderate right neural foraminal narrowing. Left neural foramen preserved. At L4-L5, there is mild disc bulge and moderate to advanced facet arthropathy. No central canal steno sis. There is minimal right neural foraminal narrowing. Left neural foramen preserved. At L5-S1, there is mild disc bulge/protrusion. There is mild facet arthropathy. No central canal sten osis or neural foraminal narrowing. Paravertebral soft tissues are unremarkable. Impression: Mild degenerative spondylosis, as above. Reviewed, dictated and finalized at [facility]. MACHINE OPERATOR Impression: Mild degenerative spondylosis, as above.
== END 2023-03-24 06:43 | disposition home or self-care (01) ==
PROVIDERS: PCP Family Medicine; Visit Provider Physician Assistant
DX: M43.06 Spondylolysis, lumbar region (principal)
CPT/HCPCS: 72148

== ENCOUNTER 2023-08-04 14:07 | Outpatient (CLI) | payer OTHER, MEDICARE, SELFPAY ==
--- NOTE | ~2023-08-04 | XR_ITS ---
EXAMINATION: XR hip BI 2V w AP pelvis DATE: 08/04/2023 14:25 INDICATION: Spondylosis without myelopathy or radiculopathy. TECHNIQUE: An anteroposterior view of the the pelvis on 2 radiographs and 2 views of each hip were ob tained. COMPARISON: Pelvis and hip radiographs 03/09/2023 FINDINGS: Bone alignment is normal. No fracture. There is mild lumbar spondylosis. There is mild oste oarthritis of hips. IMPRESSION: 1. Mild osteoarthritis of the hips. Reviewed, dictated and finalized at location E.
== END 2023-08-04 14:08 | disposition home or self-care (01) ==
PROVIDERS: PCP Family Medicine; Visit Provider Anesthesiology Pain Medicine
DX: M47.817 Spondylosis without myelopathy or radiculopathy, lumbosacral region (principal); M16.0 Bilateral primary osteoarthritis of hip
CPT/HCPCS: 73521

== ENCOUNTER 2023-11-27 00:33 | Day surgery (SDC) | payer OTHER, MEDICARE, SELFPAY ==
[2023-10-26 10:11] VITALS: BMI 32.2
--- NOTE | 2023-10-26 10:26 | PC.NURSE ---
Addendum entered by Zhanna Hernandez RN 10/26/23 10:34: PATIENT INSTRUCTED TO TAKE SHOWER OR BATH NIGHT BEFORE AND MORNING OF SURGERY PER DR DE LA O. HE RELAYS UNDERSTANDING. Original Note: Report to the Outpatient Waiting Room, entrance under the green pavilion located off [facility], at time __1:00PM on date __10/30/23 . Planned Procedure Time: __2:00PM . Time changes happen often and if your time is changed the preop area will call you the afternoon before. - You and your visitor will be asked to self-screen and do not enter if you have any COVID symptoms. - A mask is optional within the hospital at this time. Patients may have LIGHT BREAKFAST/LUNCH BEFORE NOON. MAY HAVE SMALL AMOUNT clear liquids (water, carbonated beverages, clear teas, apple juice) AFTER NOON ON 10/30/23. Take the following medications with a SIP of water the morning of surgery: ____USUAL MORNING MEDICATION DO NOT STOP ANY OF YOUR OTHER PRESCRIPTION MEDICATIONS PRIOR TO SURGERY ?EXCEPT THE FOLLOWING Medications to discontinue per physician NONE Date to take last dose Please no make-up, nail northern irish, hairspray, perfume, deodorant, or body powder the day of surgery. No jewelry (including any body piercings) or valuables the day of surgery, leave them at home. Please take a shower or bath the night before, or the morning of, surgery with an antibacterial soap. Wear comfortable, loose fitting clothing. Children are encouraged to wear pajamas. - Jewelry must be removed prior to entering the operating room. Rings and piercings that are not removed may be cut off. - The hospital will not accept responsibility for valuables. - Please leave all valuables, including medications, at home the day of surgery. If you are going home after surgery, a licensed courtesy bus driver must drive you home. - NO public transportation without another adult if you receive anesthesia. - We recommend that an adult stay with you for 24 hours following discharge. - We also recommend that you do not drive, make important decision, drink alcoholic beverages, or take any drugs that were not prescribed by your health care provider for at least 24 hours after your discharge time. For Pediatric surgeries, we recommend two adults accompany the child home. Follow any additional instructions given to you from your surgeon. If you or anyone in your household have experienced Covid symptoms in the past week, please notify your surgeon or the nurse liaison at the phone number below for possible testing. Telephone instructions given to ___PATIENT and asked if any additional questions and then verbalized understanding. Patient advised to call surgeon office or pre surgery nurse liaison [phone] if any additional questions.
--- NOTE | 2023-11-21 12:39 | PC.NURSE ---
Addendum entered by Zhanna Hernandez RN 11/21/23 12:42: RESCHEDULE FROM 10/30/23 FOR INSURANCE REASONS. Original Note: Report to the Outpatient Waiting Room, entrance under the green pavilion located off [facility], at time __10:15AM on date __11/27/23 . Planned Procedure Time: ___11:15AM . Time changes happen often and if your time is changed the preop area will call you the afternoon before. - You and your visitor will be asked to self-screen and do not enter if you have any COVID symptoms. - A mask is optional within the hospital at this time. LIGHT BREAKFAST MORNING OF SURGERY. Take the following medications with a SIP of water the morning of surgery: __AM MEDS DO NOT STOP ANY OF YOUR OTHER PRESCRIPTION MEDICATIONS PRIOR TO SURGERY ?EXCEPT THE FOLLOWING Medications to discontinue per physician ____NONE Date to take last dose Please no make-up, nail ghanaian, hairspray, perfume, deodorant, or body powder the day of surgery. No jewelry (including any body piercings) or valuables the day of surgery, leave them at home. Please take a shower or bath the night before, or the morning of, surgery with an antibacterial soap. Wear comfortable, loose fitting clothing. - Jewelry must be removed prior to entering the operating room. Rings and piercings that are not removed may be cut off. - The hospital will not accept responsibility for valuables. - Please leave all valuables, including medications, at home the day of surgery. MAY DRIVE SELF HOME OR HAVE A UPKEEP MECHANIC. Follow any additional instructions given to you from your surgeon. SHOWER OR BATH NIGHT BEFORE SURGERY & MORNING OF SURGERY PER DR DE LA O. If you or anyone in your household have experienced Covid symptoms in the past week, please notify your surgeon or the nurse liaison at the phone number below for possible testing. Telephone instructions given to ___PATIENT and asked if any additional questions and then verbalized understanding. Patient advised to call surgeon office or pre surgery nurse liaison [phone] if any additional questions.
--- NOTE | ~2023-11-27 | XR_ITS ---
EXAMINATION: XR fluoroscopy no charge DATE: 11/27/2023 13:38 INDICATION: Lumbar spondylosis. TECHNIQUE: 8 intraoperative fluoroscopic views of the lumbar spine were obtained. I was not present. Fluoroscopy exposure time was 48 seconds. COMPARISON: Lumbar spine MRI 03/24/2023 FINDINGS: [place] overlie the posterior elements at multiple levels. There is mild lumbar spondylosis . IMPRESSION: 1. Mild lumbar spondylosis. Reviewed, dictated and finalized at location A. IMPRESSION: 1. Mild lumbar spondylosis.
--- NOTE | 2023-11-27 06:34 | PM.HPGS ---
History of Present Illness History of Present Illness Consent: Risks, benefits, and alternatives have been discussed and questions answered. Patient agrees to proceed with procedure. Chief complaint: lumbosacral spondylosis, chronic low back pain Narrative: Cynthia Maldonado is a 63 year old male with chronic, recalcitrant and disabling bilateral lumbosacral back pain secondary to degenerative spondylosis with failure to respond to aggressive conservative measures including PT, oral and topical analgesics, opioid and nonopioid analgesics, rest, time and activity/behavioral modification over the past 1-2 years who presents for diagnostic/prognostic medial branch blocks(#1) under fluoroscopic guidance and with contrast control. Review of Systems Review of Systems: Patient denies any new infectious, allergic, cardiopulmonary, neurologic or constitutional symptoms or changes in activity tolerance or exercise capacity including new or progressive SOB/PINEDA, peripheral edema, productive cough, dysuria, nausea/vomiting, diarrhea, weight change, fevers/chills/night sweats, new or progressive neurologic deficit, cognitive or mood changes since last seen, except as documented in the HPI. All systems reviewed & are unremarkable except as noted in HPI and below PMFSH Past Medical History Medical History Alcohol abuse Anxiety BMI 29.0-29.9,adult Closed fracture of right distal tibia Tibial plafond January 2020 Depression Fracture of metatarsal of left foot, closed Frequent falls Hypertension Laceration of occipital region of scalp Prostate cancer Syncope and collapse Surgical History Surgical History History of appendectomy History of radical prostatectomy Family History Family History Father Malignant neoplasm of prostate Mother COPD (chronic obstructive pulmonary disease) Other Family history of malignant neoplasm Heart disease Social History Social History Social History: Smoking packs per day: 0.02 Smoking cigarettes per day: 0.4 Years smoked: 15 Smoking pack-years: 0.30 Smoking status: Former smoker Tobacco type: cigarettes Second hand tobacco smoke exposure: No Smoking end date: 10/01/97 Alcohol intake: current Drinks per week: 15 Substance use: never Substance use type: does not use Living arrangements: alone Occupation/Education: occupation 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, [employer] Gender identity (if verbalized by the patient): Male Sexual Orientation (if Verbalized by the Patient): Straight or Heterosexual Spiritual care concerns: No Meds Home Medications and Allergies Home Medications Medication Instructions Recorded Confirmed Type Lactobacillus rhamnosus GG 10 1 cap PO DAILY 01/08/20 11/21/23 History billion cell capsule (Culturelle) cyanocobalamin (vitamin B-12) 1,000 mcg PO QAM #90 tabs 03/21/20 11/21/23 Rx 1,000 mcg tablet (Vitamin B-12) terbinafine HCl 250 mg tablet 250 mg PO DAILY 01/31/23 11/21/23 History carvedilol 25 mg tablet (Coreg) 25 mg PO Q12HR #180 tabs 04/11/23 11/21/23 Rx buspirone 5 mg tablet 5 mg PO TID #90 tabs 04/28/23 11/21/23 Rx meloxicam 15 mg tablet 15 mg PO DAILY #30 tabs 05/30/23 11/21/23 Rx losartan 100 mg tablet See Rx Instructions .Route 07/12/23 11/21/23 Rx .COMPLEX #90 tabs trazodone 100 mg tablet 100 mg PO QHS #90 tabs 08/14/23 11/21/23 Rx doxazosin 2 mg tablet See Rx Instructions .Route 10/20/23 11/21/23 Rx .COMPLEX #90 tabs efinaconazole 10 % topical 1 applic topical DAILY 10/26/23 11/21/23 History solution with applicator (Lisandro) tadalafil 5 mg tablet 5 mg PO DAILY 10/26/23 11/21/23 History citalopram 20 mg tablet 20 mg PO DAILY #90 tabs 11/14/23
--- NOTE | 2023-11-27 06:37 | WPDHPUPDATE1 ---
History and Physical Update Update Date/Time: 11/27/23 06:37 History and Physical has been reviewed, including an updated exam of the patient. There are NO changes in the patient's condition. Risks, benefits, and alternatives have been discussed and questions answered. Patient agrees to proceed with procedure.
--- NOTE | 2023-11-27 06:40 | W.PM.PROC2 ---
Procedure Note - Detailed Date of Procedure 11/27/23 Pre-op Diagnosis lumbosacral spondylosis, chronic low back pain Post-op Diagnosis Same Procedure Performed Diagnostic bilateral Lumbar Medial Branch/Dorsal Ramus Blocks at L3, L4, L5 Treating the bilateral L4-5, L5-S1 Facet Joints Under Fluoroscopic Guidance and with Contrast Control. ( 4 levels blocked). Surgeon Piter Nieto MD Filling Separator None. Anesthesia Local Description of Procedure INFORMED CONSENT: Risks, benefits and alternatives to the procedure were discussed in detail with the patient who expressed explicit understanding and consent to proceed. Patient was informed verbally and in written form regarding the risks associated with the procedure including the low risk of serious infection, bleeding/bruising, allergic reaction, nerve or organ injury, paralysis, procedural site pain or discomfort, worsening pain and/or mobility, failure to treat and/or disfigurement. The patient expressed explicit understanding and consent to proceed. All materials required for the procedure were available prior to procedure start. Site and side were marked prior to procedure and confirmed in the presence of the patient. PROCEDURE IN DETAIL: The patient was brought to the procedural suite and placed in the prone position. Patient was made comfortable with use of pillows under the head/chest, hips and ankles. Skin overlying the injection site on the affected side(s) was prepared broadly with ChloraPrep applicator and draped in a sterile manner. Aseptic technique was used throughout. The endplates of the vertebral bodies at the site(s) of interest were aligned in the AP view. Ipsilateral oblique angulation was utilized to optimize visualization of the intersection between the superior articulating process and transverse process at each target site. Local anesthesia was established by infiltration with approximately 5 mL of 1% lidocaine via a 1-1/2 inch 27-gauge needle. A 25-gauge 5.0 inch Quincke spinal needle was advanced until the needle tip contacted periosteum at the target site, right L3. Lateral view was utilized to confirm the appropriate placement of the needle tip just anterior to the facet line and superior to the pedicle. In the Lateral view, 0.25 mL of Omnipaque 300 contrast medium was injected after negative aspiration for CSF, blood or other bodily fluid, showing appropriate extra-articular spread of contrast without evidence of intravascular, foraminal or intrathecal placement. A 0.5 mL solution of 0.5% PF bupivacaine was injected after negative repeat aspiration. Appropriate spread of the injectate was confirmed with washout of previously injected contrast. No parasthesias were elicited. Needle was removed completely intact without difficulty. The same exact procedure was repeated for all remaining levels on the ipsilateral side, right L4, L5 medial branches/dorsal ramus, modified as necessary to accommodate for the new target location with identical findings and results and no evidence of complication. The same exact procedure was repeated for all remaining levels on the contralateral side, left L3, L4, L5 medial branches/dorsal ramus, modified as necessary to accommodate for the new target location with identical findings and results and no evidence of complication. Images were saved and documented in the patient chart. Patient's skin was cleaned and sterile bandage applied. The patient tolerated the procedure well. The patient was transported to the recovery area in stable condition where they were observed for an appropriate amount of time prior to discharge, without evidence of complication. Patient was instructed on the appropriate completion of a pain diary over the next 12-24 hours. The patient was instructed to avoid excessive activity for the next 48 hours, including climbing and frequent use of stairs. Showers only for 48 hours. They were instructed not to drive or operate heavy machinery f
[2023-11-27 12:36] VITALS: BMI 32.2
[2023-11-27 13:05] VITALS: BP 194/91; PULSE 78; RESP 16; O2SAT 95
[2023-11-27 13:10] VITALS: BP 176/78; PULSE 75; RESP 16; O2SAT 95
[2023-11-27] MEDS: BUPivacaine HCL 0.5% PF 30 ML VIAL 5 ML INFILTRATE (13:13)
[2023-11-27] MEDS: LIDOCAINE HCL 1% PF INJ 5 ML VIAL INFILTRATE (13:14)
[2023-11-27 13:15] VITALS: BP 179/84; PULSE 74; RESP 16; O2SAT 94
[2023-11-27 13:20] VITALS: BP 184/88; PULSE 75; RESP 16; O2SAT 96
[2023-11-27 13:25] VITALS: BP 157/79; PULSE 70; RESP 16; TEMP 36.6; O2SAT 95
== END 2023-11-27 13:44 | disposition home or self-care (01) ==
PROVIDERS: PCP Family Medicine; Visit Provider Anesthesiology Pain Medicine
PROC: (CPT 64493; principal; 2023-11-27 13:30)
DX: M47.817 Spondylosis without myelopathy or radiculopathy, lumbosacral region (principal); I10 Essential (primary) hypertension; F41.9 Anxiety disorder, unspecified; G89.29 Other chronic pain; M54.50 Low back pain, unspecified; Z79.1 Long term (current) use of non-steroidal anti-inflammatories (NSAID); Z91.81 History of falling; Z98.890 Other specified postprocedural states; Z87.891 Personal history of nicotine dependence; Z85.46 Personal history of malignant neoplasm of prostate; Z80.42 Family history of malignant neoplasm of prostate; Z82.49 Family history of ischemic heart disease and other diseases of the circulatory system
CPT/HCPCS: 64493; 64494; 64495; 99199; Q9965

== ENCOUNTER 2023-12-25 12:32 | Outpatient (CLI) | payer OTHER, MEDICARE, SELFPAY ==
--- NOTE | ~2023-12-25 | US_ITS ---
EXAMINATION: US venous doppler [facility] DATE: 12/25/2023 13:28 INDICATION: Bilateral lower limb swelling TECHNIQUE: Grayscale ultrasound images without and with compression and Doppler ultrasound images of the bilateral lower extremity veins were obtained. COMPARISON: None. FINDINGS: The visualized portions of right common femoral vein, profunda (deep) femoral vein, femoral vein, pop liteal vein, posterior tibial veins, peroneal veins, gastrocnemius vein and greater saphenous vein ou tflow are patent. Subcutaneous edema at the right calf. The visualized portions of left common femoral vein, profunda femoral vein, femoral vein, popliteal v ein, posterior tibial veins, peroneal veins, gastrocnemius vein and greater saphenous vein outflow ar e patent. Subcutaneous edema at the left calf. IMPRESSION: 1. No deep venous thrombosis in either lower limb. Reviewed, dictated and finalized at location A.
[2023-12-25 13:07] LABS: Hematocrit 42.9 % (42.0-52.0); Hemoglobin 14.7 g/dL (14.0-18.0); Mean Corpuscular HGB Conc 34.3 g/dl (32-36); Mean Corpuscular Hemoglobin 33.2 pg (26-34); Mean Corpuscular Volume 96.8 fl (80-100); Mean Platelet Volume 10.7 fl (7.4-10.4); Platelet Count Result 192 k/mm3 (150-375); Red Blood Count 4.43 M/mm3 (4.6-6.20); Red Cell Distribution Width 11.9 % (11.5-14.5); White Blood Count 8.3 K/mm3 (4.5-10.0)
[2023-12-25 13:22] LABS: Alanine Aminotransferase 35 U/L (6-50); Alkaline Phosphatase 94 U/L (38-126); Anion Gap 6 mmol/L (4-12); Aspartate Amino Transferase 44 U/L (17-59); Bilirubin,Total 0.9 mg/dL (0.2-1.3); Blood Urea Nitrogen 9 mg/dL (9-20); Calcium 9.1 mg/dL (8.4-10.2); Carbon Dioxide 33 mmol/L (22-30); Chloride 95 mmol/L (98-107); Cholesterol 176 mg/dL (0-200); Estimated Glomerular Filt Rate > 60; Glucose 122 mg/dL (65-110); HDL Direct 68 mg/dL; Potassium 4.3 mmol/L (3.4-5.0); Sodium 134 mmol/L (137-145); Triglycerides 98 mg/dL (<150)
[2023-12-25 13:23] LABS: Hemoglobin A1C 5.7 % (<5.7)
[2023-12-25 13:29] LABS: NT Pro B Type Natriuretic Pept 703 pg/mL (19.9-100)
[2023-12-25 13:33] LABS: LDL Cholesterol Direct 99 mg/dL
[2023-12-25 13:50] LABS: Thyroid Stimulating Hormone 0.865 uIU/mL (0.465-4.680)
== END 2023-12-25 12:33 | disposition home or self-care (01) ==
LOC: ANHIMG 12:33
PROVIDERS: PCP Family Medicine; Visit Provider Physician Assistant Medical
DX: Z00.00 Encounter for general adult medical examination without abnormal findings (principal); I11.9 Hypertensive heart disease without heart failure; F10.10 Alcohol abuse, uncomplicated; F41.1 Generalized anxiety disorder; G62.9 Polyneuropathy, unspecified; R73.01 Impaired fasting glucose; R60.0 Localized edema; R06.02 Shortness of breath; M79.606 Pain in leg, unspecified
CPT/HCPCS: 36415; 80053; 80061; 83036; 83880; 84443; 85027; 93970

== ENCOUNTER 2024-02-22 15:17 | Outpatient (CLI) | payer OTHER, MEDICARE, SELFPAY ==
--- NOTE | ~2024-02-22 | XR_ITS ---
EXAMINATION: [id number] DATE: 02/22/2024 15:39 INDICATION: Unspecified injury of right foot, initial encounter. TECHNIQUE: 3 views of right foot including weight-bearing views were obtained. COMPARISON: None. FINDINGS: Alignment is normal. There is an oblique fracture of head of third proximal phalanx with ca llus formation. There is mild osteoarthritis of talonavicular joint and first metatarsophalangeal anai nt. There are enthesophytes at the posterior and plantar aspects of calcaneal tuberosity. IMPRESSION: 1. Healing oblique fracture of head of third proximal phalanx. Reviewed, dictated and finalized at location A. OLL ACCOUNTING CLERK
== END 2024-02-22 15:18 | disposition home or self-care (01) ==
PROVIDERS: PCP Family Medicine; Visit Provider Physician Assistant Medical
DX: S92.511D Displaced fracture of proximal phalanx of right lesser toe(s), subsequent encounter for fracture with routine healing (principal); X58.XXXD Exposure to other specified factors, subsequent encounter
CPT/HCPCS: 73630

== ENCOUNTER 2025-01-16 09:09 | Outpatient (CLI) | payer OTHER, MEDICARE, SELFPAY ==
--- OUTSIDE RECORDS SUMMARY | 2025-01-16 09:35 | XMS_ITS | Clinical Summary ---
Author Organization [facility] Care Team Providers Care Placement Interviewer Name Role Phone Unavailable Primary Care Provider Unavailabl e Social History Tobacco Use Types Packs/Day Years Used Date Smoking Tobacco: Never Assessed Sex and Gender Information Value Date Recorded Sex Assigned at Not on file Legal Sex Male 8:22 AM QI SPECIALIST Gender Identity Not on file Sexual Orientation Not on file Plan of Treatment Health Maintenance Due Date Last Done Comments Hepatitis C Virus (HCV) Screening 1960 TdaP Immunization 1958 Cologuard 2003 Colonoscopy 2003 Colorectal Cancer Screening 2003 Immunochemical Fecal Occult Blood 2003 Pneumococcal Immunization (50+ years) (1 of 1 - PCV) 2008 Zoster Immunization (1 of 2) 2008 Influenza Immunization (#1) 2024 11/0 06/2019, 04/09/2018, 01/10/2017, Additional history exists SARS-COV-2 Immunization ( season) 2024 03/22/2021, 05/22/2020, 04/23/2020 Respiratory Syncytial Virus (RSV) Immunization (Adult) (1 - 1-dose 75+ series) 2033 Hepatitis B Immunization Aged Out No longer eligible based on patient's age to complete this topic Human Papillomavirus (HPV) Immunization Aged Out No longer eligible based on patient's age to complete this topic Meningococcal Immunization (ACWY) Aged Out No longer eligible based on patient's age to complete this topic Rotavirus Immunization Aged Out No lo nger eligible based on patient's age to complete this topic
--- OUTSIDE RECORDS SUMMARY | 2025-01-16 09:35 | XMS_ITS | Clinical Summary ---
Author Organization [facility] Address [address] [place] [address] Care Team Providers Care Car Head Liner Installer Name Role Phone Hadley Pena MD Primary Care Provider Immanuel Amaro MD Unavailable [phone] Allergies Active Allergy Reactions Criticality Noted Date Comments Gabapentin Shortness of breath High 02/16/2022 Medications doxazosin (CARDURA) 2 mg tabletIndications :hypertension Take 1 tablet (2 mg total) by mouth nightly 5 9 Active traZODone (DESYREL) 50 mg tabletIndications :insomnia associated with depression Take 2 tablets (100 mg total) by mouth nightly Active citalopram (CeleXA) 20 mg tabletIndications :Anxiety with Depression Take 1 tablet (20 mg total) by mouth nightly 6 9 Active multivitamin tabletIndications :Vitamin Deficiency Prevention Take 1 tablet by mouth nightly Active naproxen (ALEVE) 220 mg tabletIndications :Pain Take 220 mg by mouth every 12 (twelve) hours as needed for pain Active L. gasseri-B. bifidum-B longum 1.5 billion cell capsuleIndication s:supplement Take 1 tablet by mouth every morning Active busPIRone (BUSPAR) 5 mg tabletIndications :Generalized Anxiety Disorder Take 1 tablet (5 mg total) by mouth 2 (two) times a day 0 Active losartan (COZAAR) 100 mg tabletIndications :hypertension Take 1 tablet (100 mg total) by mouth nightly 1 Active carvediloL (COREG) 25 mg tablet Take 1 tablet (25 mg total) by mouth 2 (two) times a day with meals 60 tablet 3 1 Active Additional Information Patient taking differently:25 mg oral 2 times daily with meals (bkfst, dinner),Indications: hypertension, Informant: Self, Reported on 05/30/2022 vit B complex no.12/niacin,B3, (VITAMIN B COMPLEX NO.12-NIACIN ORAL)Indications: supplement Take 1 Gum by mouth 2 (two) times a day Active turmeric root extract 500 mg capsuleIndication s:supplement Take 500 mg by mouth nightly Active glucosamine HCl/chondroitin yepez (GLUCOSAMINE-DIMA DROITIN ORAL)Indications: supplement Take 1 tablet by mouth nightly Active UNABLE TO FIND Take 1 each by mouth nightly Valarian Root Active bismuth subsalicylate (PEPTO-BISMOL) 262 mg tablet,chewableIn dications:Dyspeps ia Take 1 tablet (262 mg total) by mouth as needed Active ascorbic acid (VITAMIN C) 1,000 mg tabletIndications :Vitamin C Deficiency Take 1 tablet (1,000 mg total) by mouth every morning Active amoxicillin 500 mg capsuleIndication s:dental prodecure- pre procedure Take 1 tablet/capsule (500 mg total) by mouth 2 Active ferrous sulfate (IRON ORAL)Indications: supplement Take 1 tablet by mouth daily Active terbinafine (LamiSIL) 250 mg tablet Take 250 mg by mouth daily 2 Active Jublia 10 % solution with applicator 4 Active tadalafiL (CIALIS) 5 mg tabletIndications :Erectile dysfunction after radical prostatectomy Take 1 tablet (5 mg total) by mouth daily 30 tablet 11 4 Active Active Problems Problem Noted Date Diagnosed Date Hypertensive urgency 02/06/2021 Assessment & Plan (02/06/2021 9:14 AM CDT): Symptoms resolved once blood pressure improved overnight, but BP is still well above goal. The patient reports that his losartan dose was decreased from 100 mg to 50 mg q.h.s. approximately 6 weeks ago because of concern that it was contributing to his frequent falls. He has not checked his blood pressure since this change was made, making this a likely cause for the elevated blood pressure seen at this time. 100 mg of losartan administered last night per ED physician and symptoms have improved. Will increase home Coreg from 12.5 mg to 25 mg b.i.d. and monitor response. Can discharge the patient home today if BP improves further and he remains asymptomatic. Depression 02/06/2021 Anxiety 02/06/2021 Pneumonia due to infectious organism 02/05/2021 Abnormal posture 02/05/2020 Muscle weakness (generalized) 02/05/2020 Unspecified abnormalities of gait and mobility 1 04/06/2019 Unsteadiness on feet 02/05/2020 Acute embolism and thrombosis of right tibial ve in 02/04/2020 Disorder of the autonomic nervous system, unspec ified 02/04/2020 Elevation of levels of liver transaminase levels 02/04/2020 Fracture of unspecified meta tarsal bone(s), right foot, subsequent encounter for fracture with routine healing 02/04/2020 Major depressive disorder, recurrent, unspecifie d 02/04/2020 Nontoxic single thyroid nodule 02/04/2020 Other fracture of lower end of right tibia, subsequent encounter for closed fracture with routine healing 02/04/2020 Repeated falls 02/04/2020 Syncope and collapse 02/04/2020 Weakness 02/04/2020 Aortic root dilatation (CMS/HCC) 12/26/2019 NSVT (nonsustained ventricular tachycardia) 12/03 Palpitations 10/09/2019 HTN (hypertension), benign 10/09/2019 EtOH dependence (CMS/HCC) 10/09/2019 Assessment & Plan (02/06/2021 9:17 AM CDT): Last drink now over 24 hours ago and he is not having any symptoms of alcohol withdrawal. Will provide contact information for the warm handoff program here at the patient's request. Alcohol withdrawal 09/02/2019 Prostate cancer 05/07/2019 Overview (05/07/2019): Added automatically from request for surgery [id number] Malignant neoplasm of prostate (CMS/HCC) 019 Atherosclerosis of aorta 07/23/2018 Closed fracture of multiple ribs of left side DISH (diffuse idiopathic skeletal hyperostosis) 07/23/2018 Diverticulosis of colon 07/23/2018 Hemothorax, left 07/23/2018 Left scapula fracture 07/23/2018 Fall 07/22/2018 Assessment & Plan (12/27/2019 12:26 PM CDT): Mr. Cynthia Maldonado is a 59 y.o. male, who presents for evaluation of falls. His falls started in 2018. He did not have any warning and suddenly would feel his whole body becoming weak. He does not lose consciousness with the events, except for two episodes that he passed out after hitting his head. After the events, he can walk, but has extreme fatigue. He had about seven falls since last year and they resulted in an injury in the left leg, bruises in the face. He was also diagnosed with a chronic subdural hematoma and it is unclear whether it was related to one of the prior falls. He does not have any preceding symptoms. He noted that the falls may happen after urinating or being immobile for sometime. He has some lightheadedness when standing and needs to wait a bit before start walking. He does not have any gait changes in between falls. He had a heart monitor that was unrevealing and is working with the sleep center to have a new sleep study. He has family history of narcolepsy, but none for seizures. On examination, his orthostatic vitals were: sitting BP 158/75 and pulse 93; standing (after 3 minutes) BP 122/71 and pulse 109. His neurological examination was unrevealing. History and examination are compatible with frequent falls. The etiology of the falls is unclear, but differential include narcolepsy and orthostatic hypotension. He is working with the sleep center to assess narcolepsy. He should recheck orthostatic vitals at home and share the numbers with his market research coordinator/PCP to see if the changes in the clinic were consistent. Plan: - Continue evaluation with sleep center. - Assess orthostatic vitals and share them with his other providers for assessment of hypertension medications. Resolved Problems Problem Noted Date Diagnosed Date Resolved Date Cataplexy 09/04/2019 12/19/2019 Immunizations Immunization Administration Dates Next Due Influenza, Quadrivalent, Spl it, Preservative Free, Intramuscular 02/17/2022,04/09/2018,01/10/2017 Influenza, Trivalent, Preser vative Free, Intramuscular 12/09/2015 Surgical History Surgery Date Site/Laterality Comments PROSTATE BIOPSY APPENDECTOMY COLONOSCOPY PROSTATE SURGERY Medical History Medical History Date Comments Hypertension Anemia Erectile dysfunction Depression Anxiety Hepatic steatosis Essential hypertension Enlarged prostate Cancer (HCC) Motion sickness Family History Medical History Relation Name Comments Anxiety disorder Brother No Known Problems Daughter 1 No Known Problems Daughter 2 Cancer Father Nestor Maldonado Prostate cancer Father Nestor Maldonado Alzheimer's disease Maternal Grandmother Laura Cheek COPD Mother Magdalena Maldonado Narcolepsy Mother Magdalena Maldonado No Known Problems Sister Anesthesia problems Neg Hx Relation Name Status Comments Brother Alive Daughter 1 Alive Daughter 2 Alive Father Nestor Maldonado (Age 89) Maternal Grandmother Laura Cheek Mother Magdalena Maldonado (Age 76) Sister Alive Social History Tobacco Use Types Packs/Day Years Used Date Smoking Tobacco: Former Cigarettes 0.2 20 0 04/03/1977 - 04/03/1997 Smokeless Tobacco: Never Tobacco Cessation:Counseling Given: Not Answered Comments:states not a pack a day the entire time Alcohol Use Standard Drinks/Week Comments Yes 16 (1 standard drink = 0.6 oz pu re alcohol) 2 drinks a day AUDIT-C Answer Date Recorded Q1: How often do you have a drink containing alcohol? 4 or more times a week 02/16/2022 Q2: How many drinks containi ng alcohol do you have on a typical day when you are drinking? 3 or 4 Q3: How often do you have si x or more drinks on one occasion? 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 on file Not on file Not on file Obstetrics History Last Filed Vital Signs Vital Sign Reading Time Taken Comments Blood Pressure 127/62 02/17/2022 9:30 AM LODGING FACILITIES MANAGER Pulse 77 02/17/2022 9:30 AM LODGING FACILITIES MANAGER Temperature 36.7 C (98.1 F) 02/17/2022 9:30 AM LODGING FACILITIES MANAGER Respiratory Rate 18 02/17/2022 9:30 AM LODGING FACILITIES MANAGER Oxygen Saturation 97% 02/17/2022 9:30 AM LODGING FACILITIES MANAGER Inhaled Oxygen Concentration - - Weight 131.9 kg (290 lb 12.6 oz) 02/16/2022 5:30 PM LODGING FACILITIES MANAGER Height 188 cm (6' 2) 02/16/2022 5:30 PM LODGING FACILITIES MANAGER Body Mass Index 37.33 02/16/2022 5:30 PM LODGING FACILITIES MANAGER Plan of Treatment Health Maintenance Due Date Last Done Comments Colon Cancer Screening-Colonoscopy 1960 Depression Screening 1958 Hepatitis C Screening 1958 DTaP/Tdap/Td Vaccine (1 - Tdap) 1969 Hepatitis B Screening 1976 Pneumococcal vaccine 65+ (1 of 1 - PCV) 2008 Zoster Vaccine (1 of 2) 2008 Fall Risk Assessment 02/17/2023 02/17/2022 Abdominal Aortic Aneurysm (A AA) Screen 2023 07/22/2018 Well Visit 65+ 2023 Covid-19 Vaccine (5 - 2024-2 6 season) 2024 10/18/2021, 03/22/2021, 05/22/2020, Additional history exists Influenza Vaccine (#1) 2024 , 02/04/2020, 04/09/2018, Additional history exists Prostate Cancer Screening-PSA 07/04/2026, 12/22/2023, 06/16/2023, Additional history exists Procedures Procedure Name Priority Date/Time Associated Diagnosis Comments PSA SCREEN Routine 07/04/2024 2:34 PM CDT Prostate cancer (HCC) from Last 3 Months or Most Recently Relevant to Health Maintenance Results * PSA screen (07/04/2024 2:34 PM CDT) PSA-Total <0.01 <=5.40 ng/mL Comment: Interpretive Data AGE SEX REFERENCE INTERVAL 0 minutes-150 years Female None 0 minutes-49 years Male None 50-59 years Male 0-3.90 60-69 years Male 0-5.40 70-79 years Male 0-6.20 80-150 years Male 0-6.20 The Amair[employer] PSA Total assay procedure was used. Results from different manufacturers or methods may not be comparable. Serial testing should be performed using the same method. Current interpretive data last revised 21. Blood 07/04/2024 2:34 PM CDT 07/04/2024 8:49 PM CDT Justin Bandar Sim NP LAB BLOOD ORDERABLES F inal Result NADIA SHI [address] Department [place] [address] from Last 3 Months or Most Recently Relevant to Health Maintenance Insurance [facility] [id number] MEDICARE [employer] OPEN ACCESS [facility] [id number] MEDICARE Advance Directives For more information, please contact: [phone] Documents on File Type Date Recorded Patient Tube Turner Expl anation ADVANCE DIRECTIVE 02/16/2022 9:16 AM Chago r of Traffic Signal Mechanic-Medical * Full Code (Latest Code Status on File) Date Activated Date Inactivated Comments 02/16/2022 4:58 PM 02/17/2022 6:24 PM * Full Code Date Activated Date Inactivated Comments 09/02/2019 6:17 PM 09/04/2019 5:10 PM Care Teams Car Head Liner Installer Relationship Specialty Start Date End Date Hadley Pena MD [address] [place] [address] PCP - General Family Medicine 04/29/19 Immanuel Amaro MD [address] [facility] [address] [place] [address] Consulting Physician Urology 02/17/22
--- OUTSIDE RECORDS SUMMARY | 2025-01-16 09:35 | XMS_ITS | Clinical Summary ---
Author Organization [facility] [employer] Address [address] [place] [address] Care Team Providers Care Systems Software Developer Name Role Phone Nick Mims Primary Care Provider Unavailabl e Source Comments [facility] [employer],non-owned Affiliates and Associated Physician Practices is amultiple site organization consisting of ambulatory clinics and hospital sitesin [place], [place], [place] and [place]. This disclosure is being madepursuant to the Care Everywhere program and may not contain all information available regarding this patient. Last updated 17.[facility] [employer] Allergies No known active allergies Medications * Be aware that medications may not be up to date on this document. Alwaysverify current medications with the patient. metoprolol succinate XL 24hr (TOPROL XL) 100 MG tablet Take 100 mg by mouth once daily Active losartan (COZAAR) 100 MG tablet Take 100 mg by mouth once daily Active citalopram (CELEXA) 10 MG/5ML oral solution Take 20 mg by mouth once daily Active traZODone (DESYREL) 50 MG tablet Take 50 mg by mouth at bedtime Active acetaminophen (TYLENOL) 325 MG tablet Take 3 tablets by mouth 3 times daily Maximum allowable Acetaminophen amount = 4 Grams (4000 mg) / 24 hours. 9 Active ibuprofen (MOTRIN) 600 MG tablet Take 1 tablet by mouth every 8 hours 9 Active oxyCODONE, immediate release, (ROXICODONE) 5 MG tablet Take 1 tablet by mouth every 4 hours as needed for Pain 30 tablet 9 Active Active Problems Problem Noted Date Diagnosed Date Closed fracture of multiple ribs of left side Left scapula fracture 07/23/2018 Diverticulosis of colon 07/23/2018 Atherosclerosis of aorta 07/23/2018 Hemothorax, left 07/23/2018 DISH (diffuse idiopathic skeletal hyperostosis) 07/23/2018 Fall 07/22/2018 Social History Tobacco Use Types Packs/Day Years Used Date Smoking Tobacco: Never Smokeless Tobacco: Never Tobacco Cessation:Counseling Given: No Sex and Gender Information Value Date Recorded Sex Assigned at Not on file Legal Sex Male 3:08 PM CDT Gender Identity Not on file Sexual Orientation Not on file Last Filed Vital Signs Vital Sign Reading Time Taken Comments Blood Pressure 158/81 08/02/2018 1:16 PM CDT Pulse 94 08/02/2018 1:16 PM CDT Temperature 36 C (96.8 F) 08/02/2018 1:16 PM CDT Respiratory Rate 18 07/25/2018 12:38 PM CDT Oxygen Saturation 98% 08/02/2018 1:16 PM CDT Inhaled Oxygen Concentration - - Weight 109.8 kg (242 lb) 08/02/2018 1:16 PM CDT Height 190.5 cm (6' 3) 08/02/2018 1:16 PM CDT Body Mass Index 30.25 08/02/2018 1:16 PM CDT Plan of Treatment Health Maintenance Due Date Last Done Comments COLOGUARD (AGES 45-75) - COL ON CA SCREENING 1958 COLON MONITORING 1958 COLONOSCOPY - COLON CA SCREENING 1958 CT COLONOGRAPHY - COLON CA SCREENING 1958 Colorectal Cancer Screening 1958 FIT - COLON CA SCREENING 1958 FLEX SIG - COLON CA SCREENING 1958 LIPID TESTING 1958 HEPATITIS C SCREENING 05/12/1976 DTAP/TDAP/TD VACCINES (1 - Tdap) 1977 PNEUMOCOCCAL VACCINE 50+ (1 of 1 - PCV) 2008 ZOSTER VACCINE (1 of 2) 2008 SCREENING FOR DIABETES 07/24/2021 9, 07/23/2018, 07/22/2018 DEPRESSION SCREENING 04/03/2024 COVID-19 VACCINE (2023-2 5 season) 2024 INFLUENZA VACCINE (#1) 2024 Respiratory Syncytial Virus (RSV) Vaccine Pt: or over 60 yrs (1 - 1-dose 75+ series) 2033 HEPATITIS B VACCINE Aged Out No longe r eligible based on patient's age to complete this topic HIB VACCINE Aged Out No longer eligi ble based on patient's age to complete this topic HPV VACCINE Aged Out No longer eligi ble based on patient's age to complete this topic MENINGOCOCCAL (Group B) VACCINE SHARED DECISION-MAKING Aged Out No longer eligible based on patient's age to complete this topic MENINGOCOCCAL GROUPS A/C/Y/W VACCINE Aged Out No longer eligible b ased on patient's age to complete this topic Procedures Procedure Name Priority Date/Time Associated Diagnosis Comments BASIC METABOLIC PANEL (CALCIUM TOTAL) AM Draw 07/24/2018 3:14 AM CDT from Last 3 Months or Most Recently Relevant to Health Maintenance Results * (ABNORMAL) BASIC METABOLIC PANEL (CALCIUM TOTAL) (07/24/2018 3:14 AM CDT) BUN 13 7 - 26 mg/dL 07/24/2018 3:56 AM [facility] Creatinine 0.9 0.6 - 1.2 mg/dL 07/24/2018 3:56 AM [facility] Sodium 131(L) 136 - 145 mmol/L 07/24/2018 3:56 AM [facility] Potassium 3.7 3.5 - 4.5 mmol/L 07/24/2018 3:56 AM [facility] Chloride 97(L) 98 - 107 mmol/L 07/24/2018 3:56 AM [facility] CO2 24 22 - 29 mmol/L 07/24/2018 3:56 AM [facility] Glucose 111 70 - 115 mg/dL 07/24/2018 3:56 AM [facility] Calcium 8.9 8.4 - 10.2 mg/dL 07/24/2018 3:56 AM [facility] Anion Gap 14 8 - 18 07/24/2018 3:56 AM [facility] BUN/Creatinine Ratio 14 - 07/24/2018 3:56 AM CDT [facility] Osmolality Calculated 273 270 - 300 mOsm/kg 07/24/2018 3:56 AM CDT [facility] eGFR >60 >60 mL/min/1.7 3 m2 07/24/2018 3:56 AM CDT [facility] Blood BLOOD SPECIMEN / Unknown Lab Venipuncture / Unknown 07/24/2018 3:14 AM CDT 07/24/2018 3:27 AM CDT Naa Dietz GRAVEL SCREENER-CARBON ROD INSERTER LAB - CHEMISTRY ORDERAB LES Final Result [facility] [address] [place] [address] from Last 3 Months or Most Recently Relevant to Health Maintenance Insurance [address] [employer] Advance Directives * Full Code (Latest Code Status on File) Date Activated Date Inactivated Comments 07/22/2018 9:46 PM 07/25/2018 3:41 PM Care Teams Systems Software Developer Relationship Specialty Start Date End Date Nick Mims Update Information PCP - General 07/22/18
--- OUTSIDE RECORDS SUMMARY | 2025-01-16 09:35 | XMS_ITS | Patient Health Record ---
Author Organization [facility] [employer] [facility] Address [address] [facility] [address] [place] [address] Care Team Providers Care Rag Cutting Machine Tender Name Role Phone Varinder Hernandez Unavailable [phone] Reason For Referral No Information Medications Medication SIG (Take, Route, Frequency, Duration) Notes Start Date End Date Status busPIRone HCl 5 MG Tablet Oral Active traZODone HCl 100 MG Tablet Oral Active Losartan Potassium 100 MG Tablet Oral Active Zolpidem Tartrate 5 MG Tablet Oral Active Citalopram Hydrobromide 20 M G Tablet Oral Active chlordiazePOXIDE HCl 10 MG Capsule Oral Active Carvedilol 25 MG Tablet Oral Active Gabapentin 300 MG Capsule Oral Active Doxycycline Hyclate 100 MG Tablet Oral Active traZODone HCl 50 MG Tablet Oral Active Social History Social History Additional Details Category Social Info Options Details Migrated Social History Migrated Social History Tobacco Years: Former smoker 12/04/2020 Plan Of Treatment No Information Insurance Providers Payer Name Payer Address Payer Phone Subscriber Number Group Number Insured Name Patient Relationship to Insured Coverage Start Date Coverage End Date [employer] [address] [place] [address] [id number] CASH LEVIN Self - patient is the insured
--- OUTSIDE RECORDS SUMMARY | 2025-01-16 09:35 | XMS_ITS | Encounter Summary ---
Author Organization [facility] Address [address] [place] [address] Care Team Providers Care Spud Driller Name Role Phone Hadley Pena MD Primary Care Provider Immanuel Amaro MD Unavailable [phone] Encounter Details Date Type Department Care Team (Late st Contact Info) Description 08/06/2021 Telephone [facility] [address] [place], [place] [id number] Immanuel Amaro MD [address] [facility] [address] [place], [place] [id number] Social History Tobacco Use Types Packs/Day Years Used Date Smoking Tobacco: Former Cigarettes 0.1 20 0 04/03/1972 - 04/03/1992 Smokeless Tobacco: Never Comments:states not a pack a day the entire time Alcohol Use Standard Drinks/Week Comments Yes 16 (1 standard drink = 0.6 oz pu re alcohol) 2 drinks a day AUDIT-C Answer Date Recorded Q1: How often do you have a drink containing alcohol? 4 or more times a week 02/06/2021 Q2: How many drinks containi ng alcohol do you have on a typical day when you are drinking? 7 to 9 Q3: How often do you have si x or more drinks on one occasion? 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
--- OUTSIDE RECORDS SUMMARY | 2025-01-16 09:35 | XMS_ITS ---
Author Organization [facility] Address [address] [place] [address] Care Team Providers Care Bite Block Maker Name Role Phone Hadley Pena MD Primary Care Provider Immanuel Amaro MD Unavailable [phone] Active Problems Problem Noted Date Diagnosed Date [...] (05/07/2019): Added automatically from request for surgery [id number] Malignant neoplasm of prostate (CMS/HCC) 019 Atherosclerosis of aorta 07/23/2018 Closed fracture of multiple ribs of left side DISH (diffuse idiopathic skeletal hyperostosis) 07/23/2018 Diverticulosis of colon 07/23/2018 Hemothorax, left 07/23/2018 Left scapula fracture 07/23/2018 Fall 07/22/2018 Assessment & Plan (12/27/2019 12:26 PM CDT): Mr. Cynthia Maldonado is a 59 y.o. male, who presents for evaluation of falls. His falls started in 2019. He did not have any warning and [...] home and share the numbers with his bulk picker/PCP to see if the changes in the clinic were consistent. Plan: - Continue evaluation with sleep center. - Assess orthostatic vitals and share them with his other providers for assessment of hypertension medications. Current Treatment and Therapy Plans No current plan information found. Past Treatment and Therapy Plans No past plan information found. Lifetime Dose Tracking * Chemical Lifetime Dose Automatic Entry Manual Entr y DLP 1,689 mGycm 1,689 mGycm 0 mGycm Resolved Problems Problem Noted Date Diagnosed Date Resolved Date Cataplexy 09/04/2019 12/19/2019
--- OUTSIDE RECORDS SUMMARY | 2025-01-16 09:59 | XMS_ITS | Clinical Summary ---
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
--- OUTSIDE RECORDS SUMMARY | 2025-01-16 09:59 | XMS_ITS | Clinical Summary ---
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 Not on file Not on file Obstetrics History Last Filed Vital Signs Vital Sign Reading Time Taken Comments Blood Pressure 127/62 02/17/2022 9:30 AM UTILITY WORKER Pulse 77 02/17/2022 9:30 AM UTILITY WORKER Temperature 36.7 C (98.1 F) 02/17/2022 9:30 AM UTILITY WORKER Respiratory Rate 18 02/17/2022 9:30 AM UTILITY WORKER Oxygen Saturation 97% 02/17/2022 9:30 AM UTILITY WORKER Inhaled Oxygen Concentration - - Weight 131.9 kg (290 lb 12.6 oz) 02/16/2022 5:30 PM UTILITY WORKER Height 188 cm (6' 2) 02/16/2022 5:30 PM UTILITY WORKER Body Mass Index 37.33 02/16/2022 5:30 PM UTILITY WORKER Plan of Treatment Health Maintenance Due Date [...] BLOOD ORDERABLES F inal Result NADIA SHI [address] Department [place] [address] from Last 3 Months or Most Recently Relevant to Health Maintenance Insurance [facility] [id number] MEDICARE FreeCharge OPEN ACCESS [facility] [id number] MEDICARE Advance Directives For more information, please contact: [phone] Documents on File Type Date Recorded Patient Cloth Handler Expl anation ADVANCE DIRECTIVE 02/16/2022 9:16 AM Chago r of Curriculum Advisory Teacher-Medical * Full Code (Latest Code Status on File) Date Activated Date Inactivated Comments 02/16/2022 4:58 PM 02/17/2022 6:24 PM * Full Code Date Activated Date Inactivated Comments 09/02/2019 6:17 PM 09/04/2019 5:10 PM Care Teams Management Accountant Relationship Specialty Start Date End Date Hadley Pena MD [address] [place] [address] PCP - General Family Medicine 04/29/19 Immanuel Amaro MD [address] [facility] [address] [place] [address] Consulting Physician Urology 02/17/22
--- OUTSIDE RECORDS SUMMARY | 2025-01-16 09:59 | XMS_ITS | Clinical Summary ---
Author Organization [facility] [employer] Address [address] [facility] [place] [address] Care Team Providers Care Scrap Piler Name Role Phone Nick Mims Primary Care Provider Unavailabl e Source Comments [facility] [employer],non-owned Affiliates and Associated Physician Practices is amultiple site organization consisting of ambulatory clinics and hospital sitesin [place], [place] and [place]. This disclosure is being madepursuant to the Care Everywhere program and may not contain all information available regarding this patient. Last updated 17.[facility] [employer] Allergies No known active allergies Medications * [...] 7 - 26 mg/dL 07/24/2018 3:56 AM [facility] Creatinine 0.9 0.6 - 1.2 mg/dL 07/24/2018 3:[address] [facility] Sodium 131(L) 136 - 145 mmol/L 07/24/2018 3:[address] [facility] Potassium 3.7 3.5 - 4.5 mmol/L 07/24/2018 3:56 AM [facility] Chloride 97(L) 98 - 107 mmol/L 07/24/2018 3:56 AM [facility] CO2 24 22 - 29 mmol/L 07/24/2018 3:56 AM [facility] Glucose 111 70 - 115 mg/dL 07/24/2018 3:56 AM [facility] Calcium 8.9 8.4 - 10.2 mg/dL 07/24/2018 3:[address] [facility] Anion Gap 14 8 - 18 07/24/2018 3:56 AM [facility] H[facility] BUN/Creatinine Ratio 14 - 07/24/2018 3:56 AM CDT [facility] Osmolality Calculated 273 270 - 300 mOsm/kg 07/24/2018 3:56 AM CDT [facility] eGFR >60 >60 mL/min/1.7 3 m2 07/24/2018 3:56 AM CDT [facility] Blood BLOOD SPECIMEN / Unknown Lab Venipuncture / Unknown 07/24/2018 3:14 AM CDT 07/24/2018 3:27 AM CDT Naa Dietz ANIMAL CARE PROVIDER-SANITATION MANAGER LAB - CHEMISTRY ORDERAB LES Final Result [facility] [address] [place] [address] from Last 3 Months or Most Recently Relevant to Health Maintenance Insurance [employer] [facility] Address: [address] [address] [employer] Advance Directives * Full Code (Latest Code Status on File) Date Activated Date Inactivated Comments 07/22/2018 9:46 PM 07/25/2018 3:41 PM Care Teams Scrap Piler Relationship Specialty Start Date End Date Nick Mims Update Information PCP - General 07/22/18
--- OUTSIDE RECORDS SUMMARY | 2025-01-16 09:59 | XMS_ITS ---
Author Organization [facility] Address [address] [place] [address] Care Team Providers Care Fiberglass Dowel Drawing Operator Name Role Phone Hadley Pena MD Primary Care Provider Immanuel Amaro MD Unavailable [phone] Active Problems Problem Noted Date Diagnosed Date [...] (05/07/2019): Added automatically from request for surgery [id number] Malignant neoplasm of prostate (CMS/HCC) 019 Atherosclerosis [...] home and share the numbers with his infection control rn/PCP to see if the changes in the [...]
--- OUTSIDE RECORDS SUMMARY | 2025-01-16 09:59 | XMS_ITS | Encounter Summary ---
Author Organization 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
[2025-01-16 10:36] LABS: Hematocrit 43.1 % (42.0-52.0); Hemoglobin 14.4 g/dL (14.0-18.0); Mean Corpuscular HGB Conc 33.4 g/dl (32-36); Mean Corpuscular Hemoglobin 31.9 pg (26-34); Mean Corpuscular Volume 95.6 fl (80-100); Platelet Count Result 176 k/mm3 (150-375); Red Blood Count 4.51 M/mm3 (4.6-6.20); White Blood Count 8.3 K/mm3 (4.5-10.0)
[2025-01-16 11:00] LABS: Alanine Aminotransferase 62 U/L (6-50); Albumin Level 3.9 g/dL (3.5-5.1); Alkaline Phosphatase 84 U/L (38-126); Anion Gap 7 mmol/L (4-12); Aspartate Amino Transferase 83 U/L (17-59); Bilirubin,Total 1.0 mg/dL (0.2-1.3); Blood Urea Nitrogen 13 mg/dL (9-20); Calcium 9.1 mg/dL (8.4-10.2); Carbon Dioxide 30 mmol/L (22-30); Chloride 97 mmol/L (98-107); Cholesterol 190 mg/dL (0-200); Estimated Glomerular Filt Rate > 60; Glucose 109 mg/dL (65-110); HDL Direct 54 mg/dL; Potassium 4.4 mmol/L (3.4-5.0); Sodium 134 mmol/L (137-145); Total Protein 7.2 g/dL (6.3-8.2); Triglycerides 111 mg/dL (<150)
[2025-01-16 11:36] LABS: Thyroid Stimulating Hormone 0.593 uIU/mL (0.465-4.680)
[2025-01-16 21:57] LABS: Hemoglobin A1C 5.3 % (<5.7)
== END 2025-01-16 09:10 | disposition home or self-care (01) ==
LOC: ANHLAB 09:12
PROVIDERS: PCP Family Medicine; Visit Provider Physician Assistant Medical
DX: R60.0 Localized edema (principal); I10 Essential (primary) hypertension; F41.1 Generalized anxiety disorder; Z00.00 Encounter for general adult medical examination without abnormal findings; G62.9 Polyneuropathy, unspecified; E11.65 Type 2 diabetes mellitus with hyperglycemia
CPT/HCPCS: 36415; 80053; 80061; 83036; 84443; 85027